=== PATIENT | male | born 1935 | race Caucasian/White ===

== ENCOUNTER 2017-08-13 21:59 | Inpatient (IN) ==
[2017-08-13 22:40] LABS: Basophils % 0.2 %; Eosinophils # 0.2 K/mcL (0.0-0.6); Eosinophils % 1.9 %; Hematocrit 31.6 % (37.5-50.1); Hemoglobin 10.9 g/dL (12.9-16.9); Immature Granulocytes % 0.3 % (0-4); Lymphocytes # 1.1 K/mcL (0.6-4.6); Lymphocytes % 11.3 %; Mean Corpuscular HGB Conc 34.5 g/dL (31.6-35.5); Mean Corpuscular Hemoglobin 31.2 pg (28.0-33.3); Mean Corpuscular Volume 90.5 fL (83.0-100.0); Mean Platelet Volume 9.5 fL (9.4-12.4); Monocytes # 0.6 K/mcL (0.0-1.3); Monocytes % 6.5 %; Neutrophils # 7.6 K/mcL (1.6-8.9); Platelet Count 133 K/mcL (140-400); Red Blood Count 3.49 M/mcL (4.19-5.50); Red Cell Distribution Width 14.6 % (11.5-14.5); Segmented Neutrophils % 79.8 %
[2017-08-13 22:45] LABS: Bilirubin,Urine Small (Negative); Blood,Urine Trace (Negative); Clarity,Urine Cloudy (Clear); Color,Urine Dark Yellow (Yellow); Glucose,Urine (UA) Normal (Normal); Ketones,Urine Negative (Negative); Leukocyte Esterase,Urine Negative (Negative); Nitrite,Urine Negative (Negative); Protein,Urine 30 mg/dL (Neg-Trace); Specific Gravity,Urine 1.012 (1.010-1.025); Urobilinogen,Urine Normal (Normal)
[2017-08-13 22:46] LABS: Bacteria,Urine None Seen per hpf (None-Few); Hyaline Casts,Urine None Seen per lpf (None-Few); Squamous Epithelial Cell,Urine Many per lpf (None-Few)
[2017-08-13 22:46] LABS: INR 1.1; Prothrombin Time 11.9 Seconds (9.4-12.1)
[2017-08-13 22:49] LABS: Activated Partial Thrombo Time 28.2 Seconds (26.0-36.0)
[2017-08-13 23:14] LABS: Troponin I 0.04 ng/mL (< 0.04)
[2017-08-13 23:15] LABS: Alanine Aminotransferase > 500 Units/L (7-52); Albumin 3.5 g/dL (3.5-5.7); Albumin/Globulin Ratio 1.5 (1.1-2.2); Alkaline Phosphatase 257 Units/L (34-104); BUN/Creatinine Ratio 24 (6-26); Bilirubin,Indirect 1.1 mg/dL (0.0-1.2); Bilirubin,Total 2.1 mg/dL (0.3-1.0); Blood Urea Nitrogen 32 mg/dL (8-23); Calcium 9.2 mg/dL (8.6-10.3); Carbon Dioxide 23 mEq/L (23-29); Chloride 106 mEq/L (98-107); Globulin 2.4 g/dL (2.4-3.5); Glucose 125 mg/dL (70-105); Lipase 69 Units/L (11-82); Osmolality,Calculated 296 (280-300); Potassium 4.2 mEq/L (3.5-5.1); Sodium 139 mEq/L (136-145); Total Protein 5.9 g/dL (6.4-8.9); eGFR For African Americans > 60 (> 60); eGFR For Non-African Americans 51 (> 60)
[2017-08-13 23:20] LABS: Aspartate Amino Transferase 1585 Units/L (13-39)
[2017-08-13] MEDS ORDERED: Isovue-370 500 ML INFUS..BTL IV ONE (23:23)
[2017-08-14] MEDS ORDERED: 0.9 % Sodium Chloride 1,000 ML IVC ONE (00:55)
--- NOTE | 2017-08-14 01:15 | Emergency Department Note ---
Disposition Clinical Impression: Abdominal pain, Elevated liver enzymes, Elevated troponin Disposition: Admitted As Inpatient Condition: Undetermined Instructions: Abdominal Pain (ED) Referrals: Judy Morgan CNP [Primary Care Provider] - Forms: ED Satisfaction Letter, Work/School Release Time of Disposition: 01:45 Abdominal Pain HPI - General Chief Complaint: ED Abdominal Pain Stated Complaint: N/V Time Seen by Provider: 08/13/17 23:13 Source: patient, family, EMS Mode of arrival: ambulatory Limitations: no limitations Nursing Notes Reviewed: Yes Vital Signs Reviewed: Yes - History of Present Illness HPI Narrative: 81-year-old male presents emergency Department with concerns of nausea and vomiting. Patient had a pacemaker placed [address] Whitfield. Patient had felt well after his discharge from hospital. He denies fever, chills, chest pain. Patient developed nausea and vomiting within the past 24 hours. Patient states he had never had symptoms like this in the past. Daughter states the patient has become increasingly weak and fatigued over the past 12 hours. Patient had stated he had significant epigastric pain. Pain Scale: 0 - Related Data Home Medications Medication Instructions Recorded Confirmed ALPRAZolam [Xanax 0.25 MG Tablet] 0.25 mg PO BID PRN 10/19/15 10/19/15 B2/Vits A,C,E/Lut/Zeaxanth/Min 1 each PO DAILY 10/19/15 10/19/15 [Icaps Tablet] Carvedilol 12.5 mg PO BID 10/19/15 10/19/15 Cholecalciferol (D-3) [Vitamin D] 2,000 unit PO DAILY 10/19/15 10/19/15 Clopidogrel [Plavix] 75 mg PO DAILY 10/19/15 10/19/15 Clotrimazole/Betamethasone Dip 1 appl TP BID 10/19/15 10/19/15 [Clotrimazole-Betamethasone Lot] Cyanocobalamin (B-12) [Vitamin B12] 1,000 mcg IM QMONTH 10/19/15 10/19/15 Diclofenac Sodium [Voltaren] 1 appl TP BID 10/19/15 10/19/15 Docusate [Colace] 100 mg PO DAILY PRN 10/19/15 10/19/15 Ezetimibe [Zetia] 10 mg PO DAILY 10/19/15 10/19/15 Ferrous Sulfate 325 mg PO BIDWM 10/19/15 10/19/15 Finasteride [Proscar] 5 mg PO DAILY 10/19/15 10/19/15 Furosemide [Lasix] 40 mg PO PRN PRN 10/19/15 10/19/15 Gabapentin [Neurontin] 300 mg PO BID 10/19/15 10/19/15 Gluc Tidwell/Chondro Tidwell A/Vit C/Mn 1 each PO DAILY 10/19/15 10/19/15 [Glucosamine Chondroitin Tab] Loratadine [Claritin] 10 mg PO DAILY 10/19/15 10/19/15 Metoclopramide [Reglan] 10 mg PO DAILY 10/19/15 10/19/15 Multivitamin [Multi-Day Vitamins] 1 each PO DAILY 10/19/15 10/19/15 Nitroglycerin [Nitrostat] 0.4 mg SL AD PRN 10/19/15 10/19/15 Oxycodone HCl/Acetaminophen 1 each PO Q6H PRN 10/19/15 10/19/15 [Percocet 5-325 mg Tablet] Pantoprazole Sodium [Protonix] 40 mg PO DAILY 10/19/15 10/19/15 Potassium Chloride [K-Tab ER] 20 meq PO BID 10/19/15 10/19/15 Pravastatin Sodium [Pravachol] 40 mg PO DAILY 10/19/15 10/19/15 Tamsulosin [Flomax] 0.4 mg PO DAILY 10/19/15 10/19/15 Valsartan/Hydrochlorothiazide 0.5 each PO DAILY 10/19/15 10/19/15 [Diovan Hct 80-12.5 mg Tablet] metFORMIN [Glucophage] 500 mg PO BIDWM 10/19/15 10/19/15 Previous Rx's Medication Instructions Recorded Aspirin 81 mg PO DAILY #30 tab.chew 10/22/15 Benzonatate [Tessalon] 100 mg PO TID #30 capsule 06/03/16 Oseltamivir [Tamiflu] 75 mg PO BID #10 capsule 06/03/16 Benzonatate [Tessalon] 200 mg PO TID PRN #30 capsule 03/09/17 Guaifenesin [Mucinex] 600 mg PO BID #20 tab.er.12h 03/09/17 cephALEXin [Keflex] 500 mg PO QID #40 capsule 03/09/17 Allergies Allergy/AdvReac Type Severity Reaction Status Date / Time levofloxacin [From Levaquin] Allergy See Verified 10/19/15 12:24 Comments lisinopril Allergy See Verified 10/19/15 12:24 Comments simvastatin [From Zocor] Allergy See Verified 10/19/15 12:24 Comments atorvastatin [From Lipitor] AdvReac See Verified 10/19/15 12:24 Comments All systems ED: reviewed and negative except as stated. Review of Systems: As Per HPI Abdominal Pain PMH - Past Medical History Medical history: Reports: coronary artery disease, diabetes, renal disease, other Male Surgical History: Reports: coronary bypass (CABG), pacemaker/AICD Psychiatric history: Reports: no psych history - Social History Smoking status: Never smoker Alcohol use: Reports: none Drug use: Reports: none Physical Exam General: Alert and in no acute distress Skin: Warm, dry, intact Head: Normocephalic and atraumatic Neck: Supple, trachea midline and no tenderness Cardiovascular: RRR, no murmur, normal perfusion Respiratory: CTAB, no wheezing, cough, or respiratory distress Musculoskeletal: Normal strength, no tenderness, swelling or deformity GI: Soft, nontender, nondistended. Bowel sounds present Neuro: A&O to person, place, time and situation. No focal deficits noted on exam Psychiatric: cooperative and appropriate mood and affect. - General General appearance: alert, in no apparent distress Course Vital Signs Temperature 98.8 F 08/13/17 22:13 Pulse Rate 108 08/13/17 22:13 Respiratory Rate 16 08/13/17 22:13 Blood Pressure 97/72 08/13/17 22:13 O2 Sat by Pulse Oximetry 96 08/13/17 22:13 Temperature 98.8 F 08/13/17 22:13 Pulse Rate 108 08/13/17 22:13 Respiratory Rate 16 08/13/17 22:13 Blood Pressure 97/72 08/13/17 22:13 O2 Sat by Pulse Oximetry 96 08/13/17 22:13 Oxygen Delivery Oxygen Delivery Nasal Cannula Abdominal Pain - MDM Narrative Medical decision making narrative: Patient has elevation of his troponin at 0.04. This is higher than his previous troponins. Patient also has significant elevation of his AST, ALP and alkaline phosphatase. Patient is not significantly jaundiced on evaluation. No history of hepatitis. No history of gallbladder disease. CT returned showing evidence of possible acute cholecystitis. Patient also has an abdominal aortic aneurysm. I spoke with Dr. dominguez regarding this patient's case and presentation who agreed to see the patient in the hospital. He recommended starting patient on Zosyn and he will likely have surgery tomorrow. Patient will be admitted to the hospitalist per recommendation of Dr. dominguez. - Medical Records Medical records reviewed: Yes I reviewed the patient's medical records. - Lab Data Lab results reviewed: Yes I reviewed the patient's lab results. Result diagrams: 08/13/17 22:30 08/13/17 22:30 Lab Results 08/13/17 08/13/17 08/13/17 Range/Units 22:30 22:30 22:30 WBC 9.5 (4.3-11.1) K/mcL RBC 3.49 L (4.19-5.50) M/mcL Hgb 10.9 L (12.9-16.9) g/dL Hct 31.6 L (37.5-50.1) % MCV 90.5 (83.0-100.0) fL MCH 31.2 (28.0-33.3) pg MCHC 34.5 (31.6-35.5) g/dL RDW 14.6 H (11.5-14.5) % Plt Count 133 L (140-400) K/mcL MPV 9.5 (9.4-12.4) fL Immature Gran % 0.3 (0-4) % Seg Neutrophils % 79.8 % Lymphocytes % 11.3 % Monocytes % 6.5 % Eosinophils % 1.9 % Basophils % 0.2 % Neutrophils # 7.6 (1.6-8.9) K/mcL Lymphocytes # 1.1 (0.6-4.6) K/mcL Monocytes # 0.6 (0.0-1.3) K/mcL Eosinophils # 0.2 (0.0-0.6) K/mcL Basophils # 0.0 (0.0-0.2) K/mcL PT 11.9 (9.4-12.1) Seconds INR 1.1 APTT 28.2 (26.0-36.0) Seconds Sodium 139 (136-145) mEq/L Potassium 4.2 (3.5-5.1) mEq/L Chloride 106 (98-107) mEq/L Carbon Dioxide 23 (23-29) mEq/L BUN 32 H (8-23) mg/dL Creatinine 1.34 H (0.70-1.30) mg/dL Est GFR ( Amer) > 60 (> 60) Est GFR (Non-Af Amer) 51 L (> 60) BUN/Creatinine Ratio 24 (6-26) Glucose 125 H (70-105) mg/dL Calculated Osmolality 296 (280-300) Calcium 9.2 (8.6-10.3) mg/dL Total Bilirubin 2.1 H (0.3-1.0) mg/dL Direct Bilirubin 1.0 H (0.0-0.2) mg/dL Indirect Bilirubin 1.1 (0.0-1.2) mg/dL AST 1585 H (13-39) Units/L ALT > 500 H (7-52) Units/L Alkaline Phosphatase 257 H (34-104) Units/L Troponin I 0.04 H* (< 0.04) ng/mL Serum Total Protein 5.9 L (6.4-8.9) g/dL Albumin 3.5 (3.5-5.7) g/dL Globulin 2.4 (2.4-3.5) g/dL Albumin/Globulin Ratio 1.5 (1.1-2.2) Lipase 69 (11-82) Units/L Urine Color (Yellow) Urine Clarity (Clear) Urine pH (5.0-8.0) pH Units Ur Specific [place] (1.010-1.025) Urine Protein (Neg-Trace) mg/dL Urine Glucose (UA) (Normal) mg/dL Urine Ketones (Negative) mg/dL Urine Blood (Negative) Urine Nitrite (Negative) Urine Bilirubin (Negative) Urine Urobilinogen (Normal) mg/dL Ur Leukocyte Esterase (Negative) Urine Microscopic RBC (0-3) per hpf Urine Microscopic WBC (0-3) per hpf Ur Squamous Epith Cells (None-Few) per lpf Urine Bacteria (None-Few) per hpf Hyaline Casts (None-Few) per lpf Urine Yeast Ur Culture Indicated? (NO) Acetaminophen < 10 L (10-20) mcg/mL 08/13/17 Range/Units 22:35 WBC (4.3-11.1) K/mcL RBC (4.19-5.50) M/mcL Hgb (12.9-16.9) g/dL Hct (37.5-50.1) % MCV (83.0-100.0) fL MCH (28.0-33.3) pg MCHC (31.6-35.5) g/dL RDW (11.5-14.5) % Plt Count (140-400) K/mcL MPV (9.4-12.4) fL Immature Gran % (0-4) % Seg Neutrophils % % Lymphocytes % % Monocytes % % Eosinophils % % Basophils % % Neutrophils # (1.6-8.9) K/mcL Lymphocytes # (0.6-4.6) K/mcL Monocytes # (0.0-1.3) K/mcL Eosinophils # (0.0-0.6) K/mcL Basophils # (0.0-0.2) K/mcL PT (9.4-12.1) Seconds INR APTT (26.0-36.0) Seconds Sodium (136-145) mEq/L Potassium (3.5-5.1) mEq/L Chloride (98-107) mEq/L Carbon Dioxide (23-29) mEq/L BUN (8-23) mg/dL Creatinine (0.70-1.30) mg/dL Est GFR ( Amer) (> 60) Est GFR (Non-Af Amer) (> 60) BUN/Creatinine Ratio (6-26) Glucose (70-105) mg/dL Calculated Osmolality (280-300) Calcium (8.6-10.3) mg/dL Total Bilirubin (0.3-1.0) mg/dL Direct Bilirubin (0.0-0.2) mg/dL Indirect Bilirubin (0.0-1.2) mg/dL AST (13-39) Units/L ALT (7-52) Units/L Alkaline Phosphatase (34-104) Units/L Troponin I (< 0.04) ng/mL Serum Total Protein (6.4-8.9) g/dL Albumin (3.5-5.7) g/dL Globulin (2.4-3.5) g/dL Albumin/Globulin Ratio (1.1-2.2) Lipase (11-82) Units/L Urine Color Dark Yellow (Yellow) Urine Clarity Cloudy A (Clear) Urine pH 6.0 (5.0-8.0) pH Units Ur Specific [place] 1.012 (1.010-1.025) Urine Protein 30 H (Neg-Trace) mg/dL Urine Glucose (UA) Normal (Normal) mg/dL Urine Ketones Negative (Negative) mg/dL Urine Blood Trace H (Negative) Urine Nitrite Negative (Negative) Urine Bilirubin Small H (Negative) Urine Urobilinogen Normal (Normal) mg/dL Ur Leukocyte Esterase Negative (Negative) Urine Microscopic RBC 3-5 H (0-3) per hpf Urine Microscopic WBC 3-5 H (0-3) per hpf Ur Squamous Epith Cells Many H (None-Few) per lpf Urine Bacteria None Seen (None-Few) per hpf Hyaline Casts None Seen (None-Few) per lpf Urine Yeast Test Not Performed Ur Culture Indicated? NO (NO) Acetaminophen (10-20) mcg/mL - EKG Data EKG attestation: Yes I reviewed and interpreted this EKG. EKG results narrative: Normal sinus rhythm with a rate of 70 without evidence of STEMI.
[2017-08-14 01:55] LABS: Acetaminophen < 10 mcg/mL (10-20)
[2017-08-14] MEDS ORDERED: Piperacillin/Tazobactam 3.375 GM in 0.9 % Sodium Chloride Mini Bag 100 ML IVPB ONE (01:57)
[2017-08-14] MEDS ORDERED: Naloxone 0.4 MG/ML INJ IVP PRN (02:42)
[2017-08-14] MEDS ORDERED: *HR* OxyCODONE Immed Rel 5 MG TABLET PO PRN (02:42)
[2017-08-14] MEDS ORDERED: Ondansetron 4 MG/2 ML VIAL IVP PRN (02:43)
--- NOTE | 2017-08-14 02:50 | Internal Med History&Physical ---
Date of Encounter: 08/14/17 Time of Encounter: 02:41 Internal Medicine - H&P: HPI Chief complaint: nausea/vomiting Admitted From: Emergency Dept Plans for Post Hospital Care: Home History of present illness: Mr. Clayton is a 81 year old male with a history of CAD s/p CABG with 5 stents , ICM s/p AICD, diabetes, hyperlipidemia, CKD, DM who presents with complaints of nausea or vomiting for about a couple of days or so. Patient is also reporting weakness. He does have epigastric pain and right upper quadrant pain. Reports subjective fevers and chills. The patient had his pacemaker changed on 08/09. Upon presentation the patient was hemodynamically stable but was noted to have significantly elevated LFTs. Creatinine was mildly elevated at 1.34 and the patient has had elevated creatinine and kidney function in the past. Troponins were 0.04 with no ischemic changes on EKG. CT abdomen and pelvis was done which showed acute cholecystitis. There was also mention about an abdominal aneurysm that was 4.1 cm that has not changed from previous. Surgery were consulted as the patient requested Dr. Newby to see and Dr. Newby recommended admission to hospitalist and optimizing for surgery. The patient was given IV fluids as well as Zosyn in the ED. Denies any headache, blurry vision, chest pain, shortness of breath, diarrhea, constipation, urinary symptoms, or neurological symptoms. Past Med Surg Social Fam HX - Past Medical History Medical history: coronary artery disease, diabetes, renal disease, other Additional medical history: baretts esophogus, sleep apnea Psychiatric history: no psych history - Past Surgical History Surgical History: angioplasty/stent, coronary bypass (CABG), LE Bypass, orthopedic, other, pacemaker/AICD Additional surgical history: cardiac stents - Social History Smoking Status: Never smoker Smokeless Tobacco Status: No Alcohol use: none Drug use: none - Family History Mother Living Status: Hx Family Cardiac Disorders: No Hx Family Endocrine Disorder: Yes Father Living Status: Hx Family Cardiac Disorders: Yes Hx Family Respiratory Disorders: No Hx Family Cancer: No Hx Family GI Disorders: No Hx Family Endocrine Disorder: No Hx Family Neuromuscular Disorders: No Hx Family Neurologic Disorders: No Hx Family HEENT Disorders: No Hx Family Autoimmune Disorders: No Internal Medicine - H&P: Meds ALPRAZolam [Xanax 0.25 MG Tablet] 0.25 mg PO BID PRN 10/19/15 [History] B2/Vits A,C,E/Lut/Zeaxanth/Min [Icaps Tablet] 1 each PO DAILY 10/19/15 [History] Carvedilol 12.5 mg PO BID 10/19/15 [History] Cholecalciferol (D-3) [Vitamin D] 2,000 unit PO DAILY 10/19/15 [History] Clopidogrel [Plavix] 75 mg PO DAILY 10/19/15 [History] Clotrimazole/Betamethasone Dip [Clotrimazole-Betamethasone Lot] 1 appl TP BID [History] Cyanocobalamin (B-12) [Vitamin B12] 1,000 mcg IM QMONTH 10/19/15 [History] Diclofenac Sodium [Voltaren] 1 appl TP BID 10/19/15 [History] Docusate [Colace] 100 mg PO DAILY PRN 10/19/15 [History] Ezetimibe [Zetia] 10 mg PO DAILY 10/19/15 [History] Ferrous Sulfate 325 mg PO BIDWM 10/19/15 [History] Finasteride [Proscar] 5 mg PO DAILY 10/19/15 [History] Furosemide [Lasix] 40 mg PO PRN PRN 10/19/15 [History] Gabapentin [Neurontin] 300 mg PO BID 10/19/15 [History] Gluc Tidwell/Chondro Tidwell A/Vit C/Mn [Glucosamine Chondroitin Tab] 1 each PO DAILY 11/25 [History] Loratadine [Claritin] 10 mg PO DAILY 10/19/15 [History] Metoclopramide [Reglan] 10 mg PO DAILY 10/19/15 [History] Multivitamin [Multi-Day Vitamins] 1 each PO DAILY 10/19/15 [History] Nitroglycerin [Nitrostat] 0.4 mg SL AD PRN 10/19/15 [History] Oxycodone HCl/Acetaminophen [Percocet 5-325 mg Tablet] 1 each PO Q6H PRN [History] Pantoprazole Sodium [Protonix] 40 mg PO DAILY 10/19/15 [History] Potassium Chloride [K-Tab ER] 20 meq PO BID 10/19/15 [History] Pravastatin Sodium [Pravachol] 40 mg PO DAILY 10/19/15 [History] Tamsulosin [Flomax] 0.4 mg PO DAILY 10/19/15 [History] Valsartan/Hydrochlorothiazide [Diovan Hct 80-12.5 mg Tablet] 0.5 each PO DAILY 10/19/15 [History] metFORMIN [Glucophage] 500 mg PO BIDWM 10/19/15 [History] Aspirin 81 mg PO DAILY #30 tab.chew 10/22/15 [Rx] Benzonatate [Tessalon] 100 mg PO TID #30 capsule 06/03/16 [Rx] Oseltamivir [Tamiflu] 75 mg PO BID #10 capsule 06/03/16 [Rx] Benzonatate [Tessalon] 200 mg PO TID PRN #30 capsule 03/09/17 [Rx] Guaifenesin [Mucinex] 600 mg PO BID #20 tab.er.12h 03/09/17 [Rx] cephALEXin [Keflex] 500 mg PO QID #40 capsule 03/09/17 [Rx] 3 Allergy/AdvReac Type Severity Reaction Status Date / Time levofloxacin [From Levaquin] Allergy See Verified 10/19/15 12:24 Comments lisinopril Allergy See Verified 10/19/15 12:24 Comments simvastatin [From Zocor] Allergy See Verified 10/19/15 12:24 Comments atorvastatin [From Lipitor] AdvReac See Verified 10/19/15 12:24 Comments All Systems PM: A 10-system review of systems was performed and is negative for pertinent findings except as documented above in the HPI. Review of systems: All systems reviewed are negative except as mentioned above - Constitutional Vitals: Temp Pulse Resp BP Pulse Ox 98.8 F 108 16 97/72 96 08/13/17 22:13 08/13/17 22:13 08/13/17 22:13 08/13/17 22:13 08/13/17 22:13 Exam: GEN: NAD HEENT: AT, NC, No cyanosis, oral mucosa is moist, No JVD Lymphatics: No lymphadenoapthy Eyes: Extrocular muscles intact, anicteric CVS:RRR. S1, S2, No m/r/g RESP: CTAB ABD: Soft, tenderness to palpation in the right upper quadrant as well as the epigastric area with no rebound., ND, +BS EXT: No edema, No rashes, 2+ DP NEURO: Nonfocal, CN II-XII intact, No focal motor or sensory deficits Psych: Cooperative, Not anxious or depressed Internal Med - H&P Results - Labs CBC & Chem 7: 08/13/17 22:30 08/13/17 22:30 Labs: Short CBC 08/13/17 Range/Units 22:30 WBC 9.5 (4.3-11.1) K/mcL Hgb 10.9 L (12.9-16.9) g/dL Hct 31.6 L (37.5-50.1) % Plt Count 133 L (140-400) K/mcL Neutrophils # 7.6 (1.6-8.9) K/mcL BMP 08/13/17 22:30 Sodium 139 Potassium 4.2 Chloride 106 Carbon Dioxide 23 BUN 32 H Creatinine 1.34 H Glucose 125 H Calcium 9.2 Cardiac Enzymes 08/13/17 Range/Units 22:30 Troponin I 0.04 H* (< 0.04) ng/mL Liver Function 08/13/17 Range/Units 22:30 Total Bilirubin 2.1 H (0.3-1.0) mg/dL Direct Bilirubin 1.0 H (0.0-0.2) mg/dL AST 1585 H (13-39) Units/L ALT > 500 H (7-52) Units/L Alkaline Phosphatase 257 H (34-104) Units/L Albumin 3.5 (3.5-5.7) g/dL Urine 08/13/17 Range/Units 22:35 Urine Color Dark Yellow (Yellow) Urine Clarity Cloudy A (Clear) Urine pH 6.0 (5.0-8.0) pH Units Ur Specific [place] 1.012 (1.010-1.025) Urine Protein 30 H (Neg-Trace) mg/dL Urine Glucose (UA) Normal (Normal) mg/dL - Impressions ITS Impressions Abdomen/Pelvis CT 08/14/17 23:23 IMPRESSION: 1. Cholelithiasis with mild pericholecystic fluid. Pattern could potentially indicate acute cholecystitis. Recommend correlation with clinical and laboratory results. Follow-up ultrasound may be considered if indicated. 2. 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 No significant change from prior imaging. Aneurysm in the thoracic aorta is not well visualized on the current study. IMPRESSION: Managing Abdominal Aortic Aneurysms 4.0-4.4 cm: Every 1 year. Recommend vascular consultation. Reference: J Vasc Surg. 2009 Dec;50(4 Suppl):S2-49 D/ / Javi Estrada MD / Javi Estrada MD Interpreting Provider: Javi Estrada MD - Assessment and plan (1) Acute cholecystitis Current Visit: Yes Status: Acute Assessment and plan: Admit to hospitalist with a consult surgery. We will place patient on IV Zosyn. Pain Control. Antiemetics. Cardiology to see for preop clearance. Nothing by mouth. Gentle hydration (2) Elevated troponin Current Visit: Yes Status: Acute Assessment and plan: Likely demand ischemia. We will trend cardiac enzymes. Check an echocardiogram. We will ask cardiology to see her clear the patient for surgery. Place on telemetry (3) Ischemic cardiomyopathy Current Visit: Yes Status: Acute Assessment and plan: Patient's previous echo from a couple years showed an EF of 35-40%. We will repeat an echo and ask cardiology to see for preoperative clearance. Patient is not in exacerbation of CHF and seems euvolemic. (4) CAD (coronary artery disease) Current Visit: No Status: Acute Assessment and plan: Resume cardiac meds. Hold antiplatelets for now in anticipation of surgery. Qualifiers: Coronary Disease-Associated Artery/Lesion type: bypass graft, autologous vein Associated angina: angina presence unspecified Qualified Code(s): I25.810 - Atherosclerosis of coronary artery bypass graft(s) without angina pectoris (5) CKD (chronic kidney disease) stage 3, GFR 30-59 ml/min Current Visit: No Status: Acute Assessment and plan: Creatinine slightly elevated above baseline. We will gently hydrate keep her mind his history of ischemic cardiomyopathy. Avoid nephrotoxins. (6) Diabetes Current Visit: No Status: Acute Assessment and plan: We will place patient on insulin sliding scale. Accu-Cheks Qualifiers: Diabetes mellitus type: type 2 Diabetes mellitus residential insulin use: without residential use Diabetes mellitus complication status: with unspecified complications Qualified Code(s): E11.8 - Type 2 diabetes mellitus with unspecified complications (7) HTN (hypertension) Current Visit: No Status: Acute Assessment and plan: Resume home antihypertensives. Qualifiers: Hypertension type: essential hypertension Qualified Code(s): I10 - Essential (primary) hypertension (8) Sleep apnea Current Visit: Yes Status: Acute Assessment and plan: On Cpap Qualifiers: Sleep apnea type: unspecified type Qualified Code(s): G47.30 - Sleep apnea , unspecified (9) DVT prophylaxis Current Visit: No Status: Acute Assessment and plan: SCDs - Time Spent With Patient Total time spent is greater than 50% in coordination of care (as documented) at patient's floor/unit and/or counseling patient:
[2017-08-14] MEDS ORDERED: *HR* Dextrose 50 % in Water (Syg) 50 ML SYRINGE IVP PRN (02:52)
[2017-08-14] MEDS ORDERED: D5% in Water 1,000 ML IVC PRN (02:52)
[2017-08-14] MEDS ORDERED: Dextrose Gel 15 GM/37.5 ML TUBE PO PRN ×2 (02:52)
[2017-08-14] MEDS: 0.9 % Sodium Chloride 1,000 ML IVC SCH ×2 (03:45→17:04)
[2017-08-14 05:27] LABS: Basophils % 0.2 %; Eosinophils # 0.3 K/mcL (0.0-0.6); Eosinophils % 3.2 %; Hematocrit 31.4 % (37.5-50.1); Hemoglobin 10.2 g/dL (12.9-16.9); Immature Granulocytes % 0.2 % (0-4); Lymphocytes # 1.2 K/mcL (0.6-4.6); Lymphocytes % 15.3 %; Mean Corpuscular HGB Conc 32.5 g/dL (31.6-35.5); Mean Corpuscular Hemoglobin 29.7 pg (28.0-33.3); Mean Corpuscular Volume 91.3 fL (83.0-100.0); Mean Platelet Volume 10.2 fL (9.4-12.4); Monocytes # 0.5 K/mcL (0.0-1.3); Neutrophils # 6.1 K/mcL (1.6-8.9); Platelet Count 131 K/mcL (140-400); Red Blood Count 3.44 M/mcL (4.19-5.50); Red Cell Distribution Width 14.6 % (11.5-14.5); Segmented Neutrophils % 75.1 %
[2017-08-14 05:53] LABS: Alanine Aminotransferase > 500 Units/L (7-52); Albumin 3.3 g/dL (3.5-5.7); Albumin/Globulin Ratio 1.3 (1.1-2.2); Alkaline Phosphatase 253 Units/L (34-104); BUN/Creatinine Ratio 24 (6-26); Bilirubin,Total 1.9 mg/dL (0.3-1.0); Blood Urea Nitrogen 30 mg/dL (8-23); Calcium 8.8 mg/dL (8.6-10.3); Carbon Dioxide 23 mEq/L (23-29); Chloride 109 mEq/L (98-107); Globulin 2.5 g/dL (2.4-3.5); Glucose 118 mg/dL (70-105); Magnesium 1.8 mg/dL (1.6-2.6); Osmolality,Calculated 299 (280-300); Potassium 3.7 mEq/L (3.5-5.1); Sodium 141 mEq/L (136-145); Total Protein 5.8 g/dL (6.4-8.9); eGFR For African Americans > 60 (> 60); eGFR For Non-African Americans 56 (> 60)
[2017-08-14 06:02] LABS: Aspartate Amino Transferase 1026 Units/L (13-39)
[2017-08-14] MEDS: Insulin LISPRO 300 UNITS/3 ML VIAL SQ SCH ×3 (06:43→17:03)
--- NOTE | 2017-08-14 07:33 | General Surgery Consult Note ---
Date of Encounter: 08/14/17 Time of Encounter: 06:55 History of Present Illness Reason for consult: other (Nausea vomiting and markedly abnormal LFTs) Requesting physician: Coleman Amaral History of present illness: 81-year-old male referred for further surgical evaluation and possible intervention after presenting to the emergency department with abrupt onset severe right upper quadrant abdominal pain, nausea and vomiting. Patient and his family describe sudden onset of symptoms which prompted presentation to the [facility] ED for further evaluation. CT abdomen and pelvis demonstrated cholelithiasis with mild pericholecystic fluid. No ductal dilatation or obvious liver abnormalities were detected. 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 Blood work was markedly abnormal. White count was 9.5, hemoglobin 10.9 with hematocrit 31.6. Platelet count 133, 000. Differential was within normal limits. Electrolytes were notable for an elevated BUN of 32, creatinine 1.34, depressed estimated GFR 51. Bilirubin 2.1 , AST 1585, ALT greater than 500, alkaline phosphatase 257. The findings were suggestive of acute calculus cholecystitis prompting the surgical consultation. Troponins were elevated at 0.04 and lipase 69. The patient's medical history is notable for recent replacement of his pacer/AICD on , 08/09/17. The daughter describes black liquid diarrhea the day following placement of the pacer/AICD but no detected melena since. Past medical history: CAD, status post CABG and stent placement 5; long- standing pacer/AICD, most recently replaced , 08/09/17; diabetes mellitus ; hyperlipidemia; chronic kidney disease; obstructive sleep apnea; and Abreu' s esophagitis. Surgical history: Patient denies any prior surgical history except for the pacer /AICD but review of medical records indicate prior CABG; lower extremity bypass ; and orthopedic procedures Allergies: Levofloxacin, lisinopril, simvastatin, and atorvastatin Medications: See list below - these meds were reviewed with the patient and his family Social history: history: Patient is ; lives at home with his spouse; he has never smoked, he denies any alcohol or tobacco use. On physical examination: Age-appropriate, elderly male, in no acute distress. The acute pain, nausea, and vomiting have resolved. The patient is currently comfortable with no complaints. Patient is afebrile at 97.8, pulse 85 and regular; respiration 16, blood pressure 123/53; SPO2 97% on 2 L/m nasal cannula. Lungs: Clear bilaterally; pacer site left upper chest/infraclavicular base, clean, dry and healing well. Cardiac: Regular rate Abdomen: Soft, nontender; gallbladder not palpable, no organomegaly or other intra-abdominal masses. Active bowel sounds. Extremities: No obvious clubbing, cyanosis, or edema. Laboratories: Repeated this morning show a white count of 8.1, hemoglobin 10.2 with hematocrit 31.4 (low but stable) platelet count was also below low limits of normal at 131,000. BUN has improved to 30, creatinine improved to 1.23. Bili removed has improved slightly to 1.9, AST 1026, ALT remains greater than 500. CT reviewed with [facility]. Impression: An 81-year-old male referred for further surgical evaluation dand possible treatment after presenting to [facility] ED with abrupt onset severe right upper quadrant abdominal pain, nausea and vomiting. The acute symptoms have resolved. The patient is presently not symptomatic. CT ending suggestive of acute cholecystitis. This we verified with an ultrasound of the gallbladder. The patient also has a significant cardiac history with recent replacement of his pacer/AICD along with diabetes, obstructive sleep apnea, and chronic kidney disease. It is my understanding that cardiology is planning a repeat echocardiogram today. As the patient is currently asymptomatic I will defer surgery pending completion of the patient's medical evaluation. The patient's findings are suggestive of acute biliary colic related to his cholelithiasis. Sonogram of the gallbladder will be useful to determine if acute cholecystitis as demonstrated on current CT is present. The patient is a reasonable candidate for laparoscopic cholecystectomy but understands that an open cholecystectomy may become necessary. Risks of surgery include hemorrhage, infection, intra-abdominal abscess, bile leak, injury to adjacent ducts, vessels, organs, or bowel. The patient is also at increased risk for pulmonary complications such as respiratory failure and/or pneumonia; worsening renal function; and cardiac risks such as dysrhythmia and/ or IA. I will follow along with you. Thank you for this consultation. Past Med Surg Social Fam HX - Past Medical History Medical history: coronary artery disease, diabetes, renal disease, other Additional medical history: baretts esophogus, sleep apnea Psychiatric history: no psych history - Past Surgical History Surgical History: angioplasty/stent, coronary bypass (CABG), LE Bypass, orthopedic, other, pacemaker/AICD Additional surgical history: cardiac stents - Social History Smoking Status: Never smoker Smokeless Tobacco Status: No Alcohol use: none Drug use: none - Family History Mother Adopted: [place]: Janeen Family Member Ethnicity: Non- Living Status: Unknown Hx Family Cardiac Disorders: No Hx Family Endocrine Disorder: Yes Father History Unknown: Yes Adopted: [place]: Luke Age: 55 Family Member Ethnicity: Non- Living Status: Age at : 55 Cause of : IA, PE Hx Family Cardiac Disorders: Yes Hx Family Respiratory Disorders: No Hx Family Cancer: No Hx Family GI Disorders: No Hx Family Endocrine Disorder: No Hx Family Neuromuscular Disorders: No Hx Family Neurologic Disorders: No Hx Family HEENT Disorders: No Hx Family Autoimmune Disorders: No Medications and Allergies ALPRAZolam [Xanax 0.25 MG Tablet] 0.25 mg PO BID PRN 10/19/15 [History] B2/Vits A,C,E/Lut/Zeaxanth/Min [Icaps Tablet] 1 each PO DAILY 10/19/15 [History] Carvedilol 12.5 mg PO BID 10/19/15 [History] Cholecalciferol (D-3) [Vitamin D] 2,000 unit PO DAILY 10/19/15 [History] Clopidogrel [Plavix] 75 mg PO DAILY 10/19/15 [History] Clotrimazole/Betamethasone Dip [Clotrimazole-Betamethasone Lot] 1 appl TP BID [History] Cyanocobalamin (B-12) [Vitamin B12] 1,000 mcg IM QMONTH 10/19/15 [History] Diclofenac Sodium [Voltaren] 1 appl TP BID 10/19/15 [History] Docusate [Colace] 100 mg PO DAILY PRN 10/19/15 [History] Ezetimibe [Zetia] 10 mg PO DAILY 10/19/15 [History] Ferrous Sulfate 325 mg PO BIDWM 10/19/15 [History] Finasteride [Proscar] 5 mg PO DAILY 10/19/15 [History] Furosemide [Lasix] 40 mg PO DAILY PRN 10/19/15 [History] Gabapentin [Neurontin] 300 mg PO BID 10/19/15 [History] Gluc Tidwell/Chondro Tidwell A/Vit C/Mn [Glucosamine Chondroitin Tab] 1 each PO DAILY 11/25 [History] Loratadine [Claritin] 10 mg PO DAILY 10/19/15 [History] Metoclopramide [Reglan] 10 mg PO DAILY 10/19/15 [History] Multivitamin [Multi-Day Vitamins] 1 each PO DAILY 10/19/15 [History] Nitroglycerin [Nitrostat] 0.4 mg SL AD PRN 10/19/15 [History] Oxycodone HCl/Acetaminophen [Percocet 5-325 mg Tablet] 1 each PO Q6H PRN [History] Pantoprazole Sodium [Protonix] 40 mg PO DAILY 10/19/15 [History] Potassium Chloride [K-Tab ER] 20 meq PO BID 10/19/15 [History] Pravastatin Sodium [Pravachol] 40 mg PO DAILY 10/19/15 [History] Tamsulosin [Flomax] 0.4 mg PO DAILY 10/19/15 [History] metFORMIN [Glucophage] 500 mg PO BIDWM 10/19/15 [History] Aspirin 81 mg PO DAILY #30 tab.chew 10/22/15 [Rx] 3 Allergy/AdvReac Type Severity Reaction Status Date / Time levofloxacin [From Levaquin] Allergy See Verified 10/19/15 12:24 Comments lisinopril Allergy See Verified 10/19/15 12:24 Comments simvastatin [From Zocor] Allergy See Verified 10/19/15 12:24 Comments atorvastatin [From Lipitor] AdvReac See Verified 10/19/15 12:24 Comments Review of Systems All systems PM: The remainder of the systems were reviewed and are negative General Surgery Exam Initial Vital Signs Temp Pulse Resp BP Pulse Ox 98.8 F 108 16 97/72 96 08/13/17 22:13 08/13/17 22:13 08/13/17 22:13 08/13/17 22:13 08/13/17 22:13 Exam Initial Vital Signs Temp Pulse Resp BP Pulse Ox 98.8 F 108 16 97/72 96 08/13/17 22:13 08/13/17 22:13 08/13/17 22:13 08/13/17 22:13 08/13/17 22:13 Results - Labs 08/14/17 04:58 08/14/17 04:58 Abnormal lab results RBC 3.44 M/mcL (4.19-5.50) L 08/14/17 04:58 Hgb 10.2 g/dL (12.9-16.9) L 08/14/17 04:58 Hct 31.4 % (37.5-50.1) L 08/14/17 04:58 RDW 14.6 % (11.5-14.5) H 08/14/17 04:58 Plt Count 131 K/mcL (140-400) L 08/14/17 04:58 Chloride 109 mEq/L (98-107) H 08/14/17 04:58 BUN 30 mg/dL (8-23) H 08/14/17 04:58 Est GFR (Non-Af Amer) 56 (> 60) L 08/14/17 04:58 Glucose 118 mg/dL (70-105) H 08/14/17 04:58 Total Bilirubin 1.9 mg/dL (0.3-1.0) H 08/14/17 04:58 Direct Bilirubin 1.0 mg/dL (0.0-0.2) H 08/13/17 22:30 AST 1026 Units/L (13-39) H 08/14/17 04:58 ALT > 500 Units/L (7-52) H 08/14/17 04:58 Alkaline Phosphatase 253 Units/L (34-104) H 08/14/17 04:58 Serum Total Protein 5.8 g/dL (6.4-8.9) L 08/14/17 04:58 Albumin 3.3 g/dL (3.5-5.7) L 08/14/17 04:58 Urine Clarity Cloudy (Clear) A 08/13/17 22:35 Urine Protein 30 mg/dL (Neg-Trace) H 08/13/17 22:35 Urine Blood Trace (Negative) H 08/13/17 22:35 Urine Bilirubin Small (Negative) H 08/13/17 22:35 Urine Microscopic RBC 3-5 per hpf (0-3) H 08/13/17 22:35 Urine Microscopic WBC 3-5 per hpf (0-3) H 08/13/17 22:35 Ur Squamous Epith Cells Many per lpf (None-Few) H 08/13/17 22:35 Acetaminophen < 10 mcg/mL (10-20) L 08/13/17 22:30 Diabetes panel 08/14/17 Range/Units 04:58 Sodium 141 (136-145) mEq/L Potassium 3.7 (3.5-5.1) mEq/L Chloride 109 H (98-107) mEq/L Carbon Dioxide 23 (23-29) mEq/L BUN 30 H (8-23) mg/dL Creatinine 1.23 (0.70-1.30) mg/dL Glucose 118 H (70-105) mg/dL Calcium 8.8 (8.6-10.3) mg/dL AST 1026 H (13-39) Units/L ALT > 500 H (7-52) Units/L Alkaline Phosphatase 253 H (34-104) Units/L Albumin 3.3 L (3.5-5.7) g/dL Calcium panel 08/14/17 Range/Units 04:58 Calcium 8.8 (8.6-10.3) mg/dL Albumin 3.3 L (3.5-5.7) g/dL Pituitary panel 08/14/17 Range/Units 04:58 Sodium 141 (136-145) mEq/L Potassium 3.7 (3.5-5.1) mEq/L Chloride 109 H (98-107) mEq/L Carbon Dioxide 23 (23-29) mEq/L BUN 30 H (8-23) mg/dL Creatinine 1.23 (0.70-1.30) mg/dL Glucose 118 H (70-105) mg/dL Calcium 8.8 (8.6-10.3) mg/dL Adrenal panel 08/14/17 Range/Units 04:58 Sodium 141 (136-145) mEq/L Potassium 3.7 (3.5-5.1) mEq/L Chloride 109 H (98-107) mEq/L Carbon Dioxide 23 (23-29) mEq/L BUN 30 H (8-23) mg/dL Creatinine 1.23 (0.70-1.30) mg/dL Glucose 118 H (70-105) mg/dL Calcium 8.8 (8.6-10.3) mg/dL Total Bilirubin 1.9 H (0.3-1.0) mg/dL AST 1026 H (13-39) Units/L ALT > 500 H (7-52) Units/L Alkaline Phosphatase 253 H (34-104) Units/L Albumin 3.3 L (3.5-5.7) g/dL All other labs normal. Consult Discharge Plan - Plan Referrals: Judy Morgan, [employer] [Primary Care Provider] -
--- NOTE | 2017-08-14 09:37 | Cardiology Consult Note ---
Addendum entered and electronically signed by Deepak Noriega DO 08/14/17 12: 11: I examined this patient and my medical decision-making was reviewed with the Resident Physician. I agree with the documented findings, disposition and treatment plan as described except to the extent set forth below. Patient seen and examined. Patient with a known history of CAD, ICMP, s/p ICD. Primary medical research assistant - Dr. Hammond. Surgery: Cholecystectomy. Anesthesia: General. Functional capacity: Limited due to chronic arthritic issues. Able to care for his , walk across the room without chest discomfort. No current chest pain or CHF symptoms. Patient has had other surgeries over the past few years without cardiac complications. Testing: TTE 08/14/2017J: LVEF 35-40%. Findings similar to prior report in 2016. Impressions: Patient represents a moderate risk candidate for this intermediate risk surgery. No further preoperative cardiac testing appears necessary and would be unlikely to alter the patient's operative risk. [place] CAD/CABG/PCI as below. Continue aspirin/statin/BB without interruption. Resume Plavix when okay with surgery. All questions answered. Patient wishes to proceed with surgery. No further inpatient cardiology recommendations. Please call with questions or concerns. Thanks, Deepak Noriega DO, [facility] Original Note: Date of Encounter: 08/14/17 Time of Encounter: 09:37 Assessment and Plan (1) Preop cardiovascular exam Current Visit: Yes Status: Acute - Asked to risk stratify for preoperative for possible laprascopic vs open cholecystectomy (Intermediate risk surgery) - Patient has a known history of CAD with CABGx3 in 1993? and MN with 5 stents placed in 1994? - Stress test in 11/05/13 was not diagnostic for ischemic heart disease due to not reaching target heart rate, EF 47% - Most recent echo in 10/19/15 shows EF 35-40% with indeterminate diastolic dysfunction. - Trop 0.04/0.03 on this hospital stay - Takes home ASA, pravastatin, NTG, Ezetimibe, carvedilol - ICD placed for frequent Ventricular ectopy around 2004, recently changed on - Able to achieve >4 METS Plan - Repeat Echo shows EF 45% which is consistent with previous results - Pt represents moderate cardiac risk for intermediate surgery - Further testing not required as it would not decrease operative risk. - Continue BB, ASA, statin. Restart plavix when OK by surgery. (2) Acute cholecystitis Current Visit: Yes Status: Acute - Further management per Primary and General surgery teams (3) Ischemic cardiomyopathy Current Visit: Yes Status: Acute - S/p ICD, Stents, CABG as above. (4) CAD (coronary artery disease) Current Visit: Yes Status: Chronic - as above Qualifiers: Coronary Disease-Associated Artery/Lesion type: bypass graft, autologous vein Associated angina: without angina Qualified Code(s): I25.810 - Atherosclerosis of coronary artery bypass graft(s) without angina pectoris (5) CKD (chronic kidney disease) stage 3, GFR 30-59 ml/min Current Visit: Yes Status: Chronic History of CKD stage III - BUN/Cr of 30/1.23 which is mildly elevated from baseline - Likely secondary to decreased oral intake (6) HTN (hypertension) Current Visit: Yes Status: Chronic - Well controlled, most recent of Qualifiers: Hypertension type: essential hypertension Qualified Code(s): I10 - Essential (primary) hypertension Discussion w patient/family: The assessment and plan as outlined above was discussed with the patient and/or family members who expressed understanding and agreement. All questions were answered. Thank you for involving us in the care of your patient. Please call with any questions. History of Present Illness Consult date: 08/14/17 Requesting physician: Maureen Rae Consult reason: Preop risk stratification Chief complaint: ABdominal pain History of present illness: Mr. Clayton is a 81 year old male with a PMHx of CAD s/p CABGx3 and stents x5 , DM2, CKD, Barretts esophagus, OA presents to ED with a complaint of abdominal pain, nausea, vomiting, dark stool since Sunday. He also complained of fevers, chills, confusion. He was evaluated by ED and general surgery for likely biliary colic vs cholicystitis with cholelithiasis. On interview today, patient is asymptomatic and complains of no pain, SOB, fevers, chills, nausea, vomiting. He has a cardiac history of CABG x3 in 1993, MN with PCI and 5 stents in . No complaints of chest pain in the last month. He is able to walk around his house without complaints of chest pain or SOB. He does have some difficulty with stairs and also has arthritis which limits his mobility. He does not use cane or walker. Most recent cardiac workup includes echocardiogram on 10/19/15 showing EF 35-40% with moderate LV systolic dysfunction and indeterminate diastolic dysfunction. Stress test in records most recently 11/05/13 which was non diagnostic for ischemia as patient was unable to reach target heart rate. EF was measured to be 47% at that time. Also has ICD placement with most recent replacement on 08/09/[address] Hammond, indication was frequent PVCs on Holter monitor. Past Med Surg Social Fam HX - Past Medical History Medical history: coronary artery disease, diabetes, renal disease, other Additional medical history: baretts esophogus, sleep apnea Psychiatric history: no psych history - Past Surgical History Surgical History: angioplasty/stent, coronary bypass (CABG), LE Bypass, orthopedic, other, pacemaker/AICD Additional surgical history: cardiac stents - Social History Smoking Status: Never smoker Smokeless Tobacco Status: No Alcohol use: none Drug use: none - Family History Mother Adopted: [place]: Janeen Family Member Ethnicity: Non- Living Status: Unknown Hx Family Cardiac Disorders: No Hx Family Endocrine Disorder: Yes Father History Unknown: Yes Adopted: [place]: Luke Age: 55 Family Member Ethnicity: Non- Living Status: Age at : 55 Cause of : MN, PE Hx Family Cardiac Disorders: Yes Hx Family Respiratory Disorders: No Hx Family Cancer: No Hx Family GI Disorders: No Hx Family Endocrine Disorder: No Hx Family Neuromuscular Disorders: No Hx Family Neurologic Disorders: No Hx Family HEENT Disorders: No Hx Family Autoimmune Disorders: No Medications and Allergies ALPRAZolam [Xanax 0.25 MG Tablet] 0.25 mg PO BID PRN 10/19/15 [History] B2/Vits A,C,E/Lut/Zeaxanth/Min [Icaps Tablet] 1 each PO DAILY 10/19/15 [History] Carvedilol 12.5 mg PO BID 10/19/15 [History] Cholecalciferol (D-3) [Vitamin D] 2,000 unit PO DAILY 10/19/15 [History] Clopidogrel [Plavix] 75 mg PO DAILY 10/19/15 [History] Clotrimazole/Betamethasone Dip [Clotrimazole-Betamethasone Lot] 1 appl TP BID [History] Cyanocobalamin (B-12) [Vitamin B12] 1,000 mcg IM QMONTH 10/19/15 [History] Diclofenac Sodium [Voltaren] 1 appl TP BID 10/19/15 [History] Docusate [Colace] 100 mg PO DAILY PRN 10/19/15 [History] Ezetimibe [Zetia] 10 mg PO DAILY 10/19/15 [History] Ferrous Sulfate 325 mg PO BIDWM 10/19/15 [History] Finasteride [Proscar] 5 mg PO DAILY 10/19/15 [History] Furosemide [Lasix] 40 mg PO DAILY PRN 10/19/15 [History] Gabapentin [Neurontin] 300 mg PO BID 10/19/15 [History] Gluc Tidwell/Chondro Tidwell A/Vit C/Mn [Glucosamine Chondroitin Tab] 1 each PO DAILY 11/25 [History] Loratadine [Claritin] 10 mg PO DAILY 10/19/15 [History] Metoclopramide [Reglan] 10 mg PO DAILY 10/19/15 [History] Multivitamin [Multi-Day Vitamins] 1 each PO DAILY 10/19/15 [History] Nitroglycerin [Nitrostat] 0.4 mg SL AD PRN 10/19/15 [History] Oxycodone HCl/Acetaminophen [Percocet 5-325 mg Tablet] 1 each PO Q6H PRN [History] Pantoprazole Sodium [Protonix] 40 mg PO DAILY 10/19/15 [History] Potassium Chloride [K-Tab ER] 20 meq PO BID 10/19/15 [History] Pravastatin Sodium [Pravachol] 40 mg PO DAILY 10/19/15 [History] Tamsulosin [Flomax] 0.4 mg PO DAILY 10/19/15 [History] metFORMIN [Glucophage] 500 mg PO BIDWM 10/19/15 [History] Aspirin 81 mg PO DAILY #30 tab.chew 10/22/15 [Rx] 3 Allergy/AdvReac Type Severity Reaction Status Date / Time levofloxacin [From Levaquin] Allergy See Verified 10/19/15 12:24 Comments lisinopril Allergy See Verified 10/19/15 12:24 Comments simvastatin [From Zocor] Allergy See Verified 10/19/15 12:24 Comments atorvastatin [From Lipitor] AdvReac See Verified 10/19/15 12:24 Comments All Systems Review: The remainder of the systems were reviewed and are negative - Constitutional Constitutional: chills, fever(s), weight loss, no fatigue, no frequent falls - Cardiovascular Cardiovascular: no chest pain at rest, no chest pain with exertion, no claudication, no diaphoresis, no dyspnea at rest, no dyspnea on exertion, no palpitations - Respiratory Respiratory: no cough, no dyspnea - Gastrointestinal Gastrointestinal: abdominal pain, diarrhea, melena, nausea - Musculoskeletal Musculoskeletal: back pain Physical Examination Vital Signs, Last 4 Hours Temp Pulse Resp BP Pulse Ox 08/14/17 07:45 97.8 F 85 16 123/53 97 General: Conversant, No Apparent Distress HEENT: Atraumatic, Normocephaly, Mucus Membranes Moist Neck: No JVD, Normal carotid pulses Cardiac: Reg Rate and Rhythm, Normal S1 and S2, No Murmur Lungs: Normal Breath Sounds, No Wheeze, Rales, Rhonchi Neuro: Alert and responsive, No focal deficits noted Abdomen: Soft, Non-Tender Skin: No rashes noted on visualized skin Musculoskeletal: No Chest Wall Tenderness Extremities: No Clubbing, No Cyanosis, No Edema, Normal Pulses Results 08/14/17 04:58 08/14/17 04:58 Lab Results 08/14/17 08/14/17 08/14/17 04:58 04:58 04:58 WBC 8.1 Hgb 10.2 L Hct 31.4 L Plt Count 131 L Sodium 141 Potassium 3.7 Chloride 109 H Carbon Dioxide 23 BUN 30 H Creatinine 1.23 Glucose 118 H Calcium 8.8 Magnesium 1.8 Total Bilirubin 1.9 H AST 1026 H ALT > 500 H Alkaline Phosphatase 253 H Troponin I 0.03 Consult Discharge Plan - Plan Referrals: Judy Morgan, [employer] [Primary Care Provider] -
[2017-08-14] MEDS: Piperacillin/Tazobactam 3.375 GM in 0.9 % Sodium Chloride Mini Bag 100 ML IVPB SCH ×2 (09:38→16:51)
--- NOTE | 2017-08-14 14:30 | Event Note ---
Date of Encounter: 08/14/17 Time of Encounter: 14:30 Seen and assessed. Surgery following for acute cholecystitis. Follow recs
--- NOTE | 2017-08-14 15:38 | Event Note ---
Date of Encounter: 08/14/17 Time of Encounter: 15:35 Ultrasound gallbladder reviewed with [facility]. Findings include cholelithiasis with biliary sludge. Edematous gallbladder wall thickening is seen along the gallbladder fossa. The possibility of adjacent liver disease is described including mild hepatic steatosis. No pericholecystic fluid was identified in contradiction to the CT findings. The patient has remained afebrile and hemodynamically stable through the course of today. No recurrent abdominal pain, nausea or vomiting. Cardiology assessment noted. Aspirin, statins, and beta blockers can be administered perioperatively without interruption. The hope that her will be resumed as soon as possible postop. Surgery (laparoscopic cholecystectomy possible open cholecystectomy) remains recommended as it appears likely that the patient will experience recurrent acute abdominal pain, nausea/vomiting if cholecystectomy is not performed during this hospitalization. This has been discussed in detail with the patient and his family. Surgical consent has been obtained.
[2017-08-14] MEDS ORDERED: ALPRAZolam 0.25 MG TABLET PO PRN (15:39)
[2017-08-14] MEDS ORDERED: *HR* OxyCODONE/APAP 5/325 TABLET PO PRN (15:57)
[2017-08-14] MEDS ORDERED: Nitroglycerin 0.4 MG TAB.SUBL SL PRN (15:57)
[2017-08-14] MEDS ORDERED: Furosemide 40 MG TABLET PO PRN (15:57)
[2017-08-14] MEDS: *HR* Metformin 500 MG TABLET PO SCH (16:09)
--- NOTE | 2017-08-14 16:36 | Electrocardiograph Report ---
[address] [place], [place] [address] Test Date: 2017-08-13 Pat Name: Milton Clayton Department: 102 Room: 2A63 Gender: M [employer] Specialist: Vidhi : 1935 Requested By: Coleman Amaral Order Number: [id number] Reading MD: Deepak Noriega Measurements Intervals [place] Rate: 70 P: 98 MI: 217 QRS: -1 QRSD: 113 T: -36 QT: 398 QTc: 419 Interpretive Statements SINUS RHYTHM WITH FIRST DEGREE AV BLOCK LOW QRS VOLTAGE IN PRECORDIAL LEADS INFERIOR MYOCARDIAL INFARCTION, OF INDETERMINATE AGE Electronically Signed On 08-14-2017 16:35:27 EDT by Deepak Noriega
[2017-08-14] MEDS: Aspirin 81 MG TAB.CHEW PO SCH (16:50)
--- NOTE | 2017-08-14 20:57 | Anesthesia Evaluation PreOp ---
Date of Encounter: 08/15/17 Time of Encounter: 20:55 - Past History Planned Operation: Lap Lesia Cardiac History: Hyperlipidemia, Cardiac Surgery (CABG), Cardiac Stent (stents x 5 total), Pacemaker/ICD (recent device replacement 08/09/2017), Other (PVD s/p LE bypass) Pulmonary History: MARGY Dx STATISTICAL TYPIST History: Denies Any Significant HX Other Medical History: Renal, Diabetes Type II, GERD (Abreu's esophagitis) Anesthesia History: No Prior Anesthetic Complications (CABG,), Past Anesthesia ( CABG, AICD/Pacer, LE Bypass) Alcohol Use: none Drug use: none Medications and Allergies ALPRAZolam [Xanax 0.25 MG Tablet] 0.25 mg PO BID PRN 10/19/15 [History] B2/Vits A,C,E/Lut/Zeaxanth/Min [Icaps Tablet] 1 each PO DAILY 10/19/15 [History] Carvedilol 12.5 mg PO BID 10/19/15 [History] Cholecalciferol (D-3) [Vitamin D] 2,000 unit PO DAILY 10/19/15 [History] Clopidogrel [Plavix] 75 mg PO DAILY 10/19/15 [History] Clotrimazole/Betamethasone Dip [Clotrimazole-Betamethasone Lot] 1 appl TP BID [History] Cyanocobalamin (B-12) [Vitamin B12] 1,000 mcg IM QMONTH 10/19/15 [History] Diclofenac Sodium [Voltaren] 1 appl TP BID 10/19/15 [History] Docusate [Colace] 100 mg PO DAILY PRN 10/19/15 [History] Ezetimibe [Zetia] 10 mg PO DAILY 10/19/15 [History] Ferrous Sulfate 325 mg PO BIDWM 10/19/15 [History] Finasteride [Proscar] 5 mg PO DAILY 10/19/15 [History] Furosemide [Lasix] 40 mg PO DAILY PRN 10/19/15 [History] Gabapentin [Neurontin] 300 mg PO BID 10/19/15 [History] Gluc Tidwell/Chondro Tidwell A/Vit C/Mn [Glucosamine Chondroitin Tab] 1 each PO DAILY 11/25 [History] Loratadine [Claritin] 10 mg PO DAILY 10/19/15 [History] Metoclopramide [Reglan] 10 mg PO DAILY 10/19/15 [History] Multivitamin [Multi-Day Vitamins] 1 each PO DAILY 10/19/15 [History] Nitroglycerin [Nitrostat] 0.4 mg SL AD PRN 10/19/15 [History] Oxycodone HCl/Acetaminophen [Percocet 5-325 mg Tablet] 1 each PO Q6H PRN [History] Pantoprazole Sodium [Protonix] 40 mg PO DAILY 10/19/15 [History] Potassium Chloride [K-Tab ER] 20 meq PO BID 10/19/15 [History] Pravastatin Sodium [Pravachol] 40 mg PO DAILY 10/19/15 [History] Tamsulosin [Flomax] 0.4 mg PO DAILY 10/19/15 [History] metFORMIN [Glucophage] 500 mg PO BIDWM 10/19/15 [History] Aspirin 81 mg PO DAILY #30 tab.chew 10/22/15 [Rx] 3 Allergy/AdvReac Type Severity Reaction Status Date / Time levofloxacin [From Levaquin] Allergy See Verified 10/19/15 12:24 Comments lisinopril Allergy See Verified 10/19/15 12:24 Comments simvastatin [From Zocor] Allergy See Verified 10/19/15 12:24 Comments atorvastatin [From Lipitor] AdvReac See Verified 10/19/15 12:24 Comments - Meds/Allergy Pre-op Review Medications Reviewed: Yes Allergies Reviewed: Yes Beta Blockers on Current Med List: Yes (Carvedilol) If Beta Blockers taken, Date/Time (Last Dose taken): 08/14/2017 @ 1884 Anesthesia Results - Labs 08/14/17 04:58 08/14/17 04:58 Laboratory Results WBC 8.1 K/mcL (4.3-11.1) 08/14/17 04:58 RBC 3.44 M/mcL (4.19-5.50) L 08/14/17 04:58 Hgb 10.2 g/dL (12.9-16.9) L 08/14/17 04:58 Hct 31.4 % (37.5-50.1) L 08/14/17 04:58 MCV 91.3 fL (83.0-100.0) 08/14/17 04:58 MCH 29.7 pg (28.0-33.3) 08/14/17 04:58 MCHC 32.5 g/dL (31.6-35.5) 08/14/17 04:58 RDW 14.6 % (11.5-14.5) H 08/14/17 04:58 Plt Count 131 K/mcL (140-400) L 08/14/17 04:58 MPV 10.2 fL (9.4-12.4) 08/14/17 04:58 Immature Gran % 0.2 % (0-4) 08/14/17 04:58 Seg Neutrophils % 75.1 % 08/14/17 04:58 Lymphocytes % 15.3 % 08/14/17 04:58 Monocytes % 6.0 % 08/14/17 04:58 Eosinophils % 3.2 % 08/14/17 04:58 Basophils % 0.2 % 08/14/17 04:58 Neutrophils # 6.1 K/mcL (1.6-8.9) 08/14/17 04:58 Lymphocytes # 1.2 K/mcL (0.6-4.6) 08/14/17 04:58 Monocytes # 0.5 K/mcL (0.0-1.3) 08/14/17 04:58 Eosinophils # 0.3 K/mcL (0.0-0.6) 08/14/17 04:58 Basophils # 0.0 K/mcL (0.0-0.2) 08/14/17 04:58 PT 11.9 Seconds (9.4-12.1) 08/13/17 22:30 INR 1.1 08/13/17 22:30 APTT 28.2 Seconds (26.0-36.0) 08/13/17 22:30 Sodium 141 mEq/L (136-145) 08/14/17 04:58 Potassium 3.7 mEq/L (3.5-5.1) 08/14/17 04:58 Chloride 109 mEq/L (98-107) H 08/14/17 04:58 Carbon Dioxide 23 mEq/L (23-29) 08/14/17 04:58 BUN 30 mg/dL (8-23) H 08/14/17 04:58 Creatinine 1.23 mg/dL (0.70-1.30) 08/14/17 04:58 Est GFR ( Amer) > 60 (> 60) 08/14/17 04:58 Est GFR (Non-Af Amer) 56 (> 60) L 08/14/17 04:58 BUN/Creatinine Ratio 24 (6-26) 08/14/17 04:58 Glucose 118 mg/dL (70-105) H 08/14/17 04:58 POC Glucose 121 mg/dL (70-99) H 08/14/17 13:06 Calculated Osmolality 299 (280-300) 08/14/17 04:58 Calcium 8.8 mg/dL (8.6-10.3) 08/14/17 04:58 Magnesium 1.8 mg/dL (1.6-2.6) 08/14/17 04:58 Total Bilirubin 1.9 mg/dL (0.3-1.0) H 08/14/17 04:58 Direct Bilirubin 1.0 mg/dL (0.0-0.2) H 08/13/17 22:30 Indirect Bilirubin 1.1 mg/dL (0.0-1.2) 08/13/17 22:30 AST 1026 Units/L (13-39) H 08/14/17 04:58 ALT > 500 Units/L (7-52) H 08/14/17 04:58 Alkaline Phosphatase 253 Units/L (34-104) H 08/14/17 04:58 Troponin I 0.03 ng/mL (< 0.04) 08/14/17 12:33 Serum Total Protein 5.8 g/dL (6.4-8.9) L 08/14/17 04:58 Albumin 3.3 g/dL (3.5-5.7) L 08/14/17 04:58 Globulin 2.5 g/dL (2.4-3.5) 08/14/17 04:58 Albumin/Globulin Ratio 1.3 (1.1-2.2) 08/14/17 04:58 Lipase 69 Units/L (11-82) 08/13/17 22:30 Urine Color Dark Yellow (Yellow) 08/13/17 22:35 Urine Clarity Cloudy (Clear) A 08/13/17 22:35 Urine pH 6.0 pH Units (5.0-8.0) 08/13/17 22:35 Ur Specific Winston 1.012 (1.010-1.025) 08/13/17 22:35 Urine Protein 30 mg/dL (Neg-Trace) H 08/13/17 22:35 Urine Glucose (UA) Normal mg/dL (Normal) 08/13/17 22:35 Urine Ketones Negative mg/dL (Negative) 08/13/17 22:35 Urine Blood Trace (Negative) H 08/13/17 22:35 Urine Nitrite Negative (Negative) 08/13/17 22:35 Urine Bilirubin Small (Negative) H 08/13/17 22:35 Urine Urobilinogen Normal mg/dL (Normal) 08/13/17 22:35 Ur Leukocyte Esterase Negative (Negative) 08/13/17 22:35 Urine Microscopic RBC 3-5 per hpf (0-3) H 08/13/17 22:35 Urine Microscopic WBC 3-5 per hpf (0-3) H 08/13/17 22:35 Ur Squamous Epith Cells Many per lpf (None-Few) H 08/13/17 22:35 Urine Bacteria None Seen per hpf (None-Few) 08/13/17 22:35 Hyaline Casts None Seen per lpf (None-Few) 08/13/17 22:35 Urine Yeast Test Not Performed 08/13/17 22:35 Ur Culture Indicated? NO (NO) 08/13/17 22:35 Acetaminophen < 10 mcg/mL (10-20) L 08/13/17 22:30 Impressions Echocardiogram 08/14/17 02:42 Impressions: LVEF 35-40%. LV systolic dysfunction with regional variation - hypokinesis of the inferior and inferolateral donahue. Segmental wall dysfunction is similar when compared to echo from 10/19/2015. Moderate left ventricular diastolic dysfunction. Normal RV size. Probably mild to moderate reduction in function. Mild mitral regurgitation. Mild-moderate aortic regurgitation. Mild tricuspid regurgitation. Borderline pulmonary hypertension. Left Ventricular Wall Motion: Rest Echo Findings The apex, apical inferior, mid inferior, basal inferior, apical anterior, mid anterior, basal anterior, apical septal, mid inferior septal, basal inferior septal, apical lateral, mid anterior lateral, basal anterior lateral, mid anterior septal, mid inferior lateral, basal anterior septal and basal inferior lateral donahue were hypokinetic. Findings: Study Quality * Technically adequate exam. ECG Findings * Probably sinus rhythm with probable PVCs. Left Ventricle * LVEF 35-40%. * Moderate left ventricular diastolic dysfunction. * Normal LV chamber size and wall thickness. Right Ventricle * Normal RV size. Probably mild to moderate reduction in function. Left Atrium * Severely dilated left atrium. Right Atrium * Normal right atrial size. Mitral Valve * Normal mitral valve structure. * No mitral stenosis. * Mild mitral regurgitation. Aortic Valve * Trileaflet aortic valve. * Mildly thickened aortic valve leaflets. * Mild-moderate aortic regurgitation. * No aortic stenosis. Tricuspid Valve * Normal tricuspid valve structure. * Mild tricuspid regurgitation. * Estimated RA pressure is 3 mmHg. * Estimated RVSP is 34 mmHg. * Borderline pulmonary hypertension. Pulmonic Valve * Pulmonic valve is not well visualized. * No pulmonic stenosis. * No pulmonic regurgitation. Pulmonary Artery * Pulmonary artery not well visualized. Aorta * Normally sized aortic root. Pericardium * There is no pericardial effusion present. Device lead * A device lead was visualized in the right atrium and right ventricle. Interatrial Septum * No evidence of PFO by color Doppler. IVC * Normal IVC dimensions and inspiratory collapse. Gallbladder Ultrasound 08/14/17 11:00 IMPRESSION: 1. Cholelithiasis and biliary sludge. Edematous gallbladder wall thickening is seen along the gallbladder fossa, potentially due to adjacent liver disease. No additional findings suggestive of cholecystitis are identified. Consider further evaluation with a nuclear medicine hepatobiliary scan if there are clinical findings of cholecystitis. 2. Mild hepatic steatosis. 3. Right renal cyst for which no follow-up is recommended. D/ / Aman Nesbitt MD / Aman Nesbitt MD Interpreting Provider: Aman Nesbitt MD Abdomen/Pelvis CT 08/14/17 23:23 IMPRESSION: 1. Cholelithiasis with mild pericholecystic fluid. Pattern could potentially indicate acute cholecystitis. Recommend correlation with clinical and laboratory results. Follow-up ultrasound may be considered if indicated. 2. 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 No significant change from prior imaging. Aneurysm in the thoracic aorta is not well visualized on the current study. IMPRESSION: Managing Abdominal Aortic Aneurysms 4.0-4.4 cm: Every 1 year. Recommend vascular consultation. Reference: J Vasc Surg. 2008;50(4 Suppl):S2-49 D/ / Javi Estrada MD / Javi Estrada MD Interpreting Provider: Javi Estrada MD - Imaging EKG: image reviewed (70bpm - SINUS RHYTHM WITH FIRST DEGREE AV BLOCK LOW QRS VOLTAGE IN PRECORDIAL LEADS INFERIOR MYOCARDIAL INFARCTION, OF INDETERMINATE AGE Electronically Signed On 08-14-2017 16:35:27 EDT by Deepak Noriega) Anesthesia Exam Vital Signs Temp Pulse Resp BP Pulse Ox 08/14/17 20:26 98.3 F 65 15 133/66 94 08/14/17 17:19 98.3 F 62 18 148/59 95 08/14/17 13:04 98.5 F 59 18 148/73 99 08/14/17 09:54 97 08/14/17 07:45 97.8 F 85 16 123/53 97 08/14/17 04:49 97 08/14/17 04:23 97.8 F 64 18 118/60 97 08/14/17 03:34 16 111/64 08/13/17 22:13 98.8 F 108 16 97/72 96 Intake and Output 08/14/17 08/14/17 08/14/17 07:59 15:59 23:59 Intake Total 100 / 100 1000 / 1000 Output Total 500 / 500 0 / 0 Balance -500 / -500 100 / 100 1000 / 1000 Intake: IV Fluids 100 / 100 1000 / 1000 0.9 % Sodium Chloride 1,000 ML 1000 / 1000 @ 100 mls/hr IVC .Q10H ANN Rx#: [id number] Zosyn 3.375 GM In 0.9 % Sodium 100 / 100 Chloride (Mini-Bag +) 100 ML @ 25 mls/hr IVPB Q8H ANN Rx#: [id number] Oral 0 / 0 Output: Urine 500 / 500 0 / 0 Other: Meal NPO Stool Size Moderate Stool Consistency formed Stool Characteristics Normal for Patient Stool Color Brown Weight 77.9 kg Blood Glucose* 114 121 150 Patient Weight 08/14/17 23:59 Weight 77.9 kg Height: 5'9" Weight: 171# BMI = 25.4 - HEENT Pupil (Motor): Pupils equal, EOMI Mallampati: II Teeth: Normal (Fair dentition) Oral Opening: Greater than 3 - STATISTICAL TYPIST LOC: Oriented STATISTICAL TYPIST Motor: Normal RUE, Normal LUE, Normal RLE, Normal LLE, Normal Face STATISTICAL TYPIST Sensory: Normal: RUE, LUE, RLE, LLE, Face - Cardiac Rhythm: Regular Murmur: None - Pulmonary Breath Sounds: bilateral Clear Respiratory Effort: Symmetrical Anesthesia Assess/Plan ASA Score: 3 (CAD, AICD/Pacer, PVDz, HTN, Chol, MARGY, CKDz, DM) Modified Seward Scale for Level of Consciousness: Cooperative, oriented, and tranquil Anesthetic Plan: General Monitoring Plan: Standard Monitors Recovery Plan: PACU Anes Supervising Prov Stmt: Pt seen/evaluated, R&B Discussed, questions answered and consent obtained. Miguel A Gonzlaes MD
[2017-08-14] MEDS: Gabapentin 300 MG CAPSULE PO SCH (21:03)
[2017-08-15] MEDS: Insulin LISPRO 300 UNITS/3 ML VIAL SQ SCH ×4 (02:16→22:29)
[2017-08-15] MEDS: Piperacillin/Tazobactam 3.375 GM in 0.9 % Sodium Chloride Mini Bag 100 ML IVPB SCH ×2 (04:45→10:22)
[2017-08-15 06:53] LABS: Basophils % 0.5 %; Eosinophils # 0.4 K/mcL (0.0-0.6); Eosinophils % 5.9 %; Hematocrit 32.4 % (37.5-50.1); Hemoglobin 10.6 g/dL (12.9-16.9); Immature Granulocytes % 0.3 % (0-4); Lymphocytes # 0.9 K/mcL (0.6-4.6); Lymphocytes % 14.6 %; Mean Corpuscular HGB Conc 32.7 g/dL (31.6-35.5); Mean Corpuscular Hemoglobin 29.7 pg (28.0-33.3); Mean Corpuscular Volume 90.8 fL (83.0-100.0); Mean Platelet Volume 10.5 fL (9.4-12.4); Monocytes # 0.6 K/mcL (0.0-1.3); Neutrophils # 4.5 K/mcL (1.6-8.9); Platelet Count 133 K/mcL (140-400); Red Blood Count 3.57 M/mcL (4.19-5.50); Red Cell Distribution Width 14.4 % (11.5-14.5); Segmented Neutrophils % 69.7 %
[2017-08-15 07:09] LABS: Alanine Aminotransferase > 500 Units/L (7-52); Albumin 3.3 g/dL (3.5-5.7); Albumin/Globulin Ratio 1.4 (1.1-2.2); Alkaline Phosphatase 211 Units/L (34-104); Aspartate Amino Transferase 267 Units/L (13-39); BUN/Creatinine Ratio 19 (6-26); Bilirubin,Total 0.7 mg/dL (0.3-1.0); Blood Urea Nitrogen 17 mg/dL (8-23); Calcium 8.9 mg/dL (8.6-10.3); Carbon Dioxide 23 mEq/L (23-29); Chloride 111 mEq/L (98-107); Globulin 2.4 g/dL (2.4-3.5); Glucose 127 mg/dL (70-105); Osmolality,Calculated 297 (280-300); Potassium 3.5 mEq/L (3.5-5.1); Sodium 142 mEq/L (136-145); Total Protein 5.7 g/dL (6.4-8.9); eGFR For African Americans > 60 (> 60); eGFR For Non-African Americans > 60 (> 60)
[2017-08-15] MEDS: *HR* Metformin 500 MG TABLET PO SCH (07:51)
[2017-08-15] MEDS: Aspirin 81 MG TAB.CHEW PO SCH (08:02)
[2017-08-15] MEDS: Gabapentin 300 MG CAPSULE PO SCH ×2 (08:07→20:24)
[2017-08-15] MEDS ORDERED: *HR* OxyCODONE/APAP 5/325 TABLET PO PRN (08:38)
[2017-08-15] MEDS ORDERED: (Ezetimibe [Zetia] 10 MG) PO SCH (09:00)
[2017-08-15] MEDS ORDERED: (Pravastatin Sodium [Pravachol] 40 MG) PO SCH (09:00)
[2017-08-15] MEDS ORDERED: Finasteride 5 MG TABLET PO SCH (09:00)
[2017-08-15] MEDS ORDERED: Multivit/Ca/Min/Fe/FA 1 TAB TABLET PO SCH (09:00)
[2017-08-15] MEDS ORDERED: GLUC SU PO SCH (09:00)
[2017-08-15] MEDS ORDERED: VIT C PO SCH (09:00)
[2017-08-15] MEDS ORDERED: [UNRECOGNIZED DRUG - OTHER] PO SCH (09:00)
[2017-08-15] MEDS ORDERED: CHONDRO SU A PO SCH (09:00)
[2017-08-15] MEDS ORDERED: Loratadine 10 MG TABLET PO SCH (09:00)
[2017-08-15] MEDS ORDERED: Neostigmine Methylsulfate 3 MG/3 ML SYRINGE ONE (12:53)
[2017-08-15] MEDS ORDERED: Dexamethasone 4 MG/ML VIAL ONE (12:56)
[2017-08-15] MEDS ORDERED: Lidocaine -MPF 2% 2 ML VIAL ONE (12:56)
[2017-08-15] MEDS ORDERED: *HR* Succinylcholine 200 MG/10 ML VIAL IVP ONE (12:56)
[2017-08-15] MEDS ORDERED: Lidocaine -MPF 4% 5 ML AMPUL ONE (12:56)
[2017-08-15] MEDS ORDERED: *HR* Rocuronium Bromide 50 MG/5 ML VIAL ONE (12:56)
[2017-08-15] MEDS ORDERED: Ondansetron 4 MG/2 ML VIAL ONE (12:56)
[2017-08-15] MEDS ORDERED: *HR* FentaNYL (PF) 100 MCG/2 ML VIAL ONE (12:56)
[2017-08-15] MEDS ORDERED: *HR* Propofol 200 MG/20 ML VIAL IVP ONE (12:56)
[2017-08-15] MEDS ORDERED: Ondansetron 4 MG/2 ML VIAL IVP ONE (13:01)
[2017-08-15] MEDS ORDERED: Dexamethasone 4 MG/ML VIAL IVP ONE (13:01)
[2017-08-15] MEDS ORDERED: *HR* Labetalol 20 MG/4 ML SYRINGE IVP PRN (13:01)
[2017-08-15] MEDS ORDERED: *HR* Morphine 2 MG/ML SYRINGE IVP PRN (13:01)
--- NOTE | 2017-08-15 13:19 | Internal Med Progress Note ---
Date of Encounter: 08/15/17 Time of Encounter: 13:00 - Assessment and plan (1) Acute cholecystitis Current Visit: Yes Status: Acute Assessment and plan: Plan for cholecystectomy by surgery. Continue on IV Zosyn. Pain Control. Gentle hydration (2) HTN (hypertension) Current Visit: Yes Status: Chronic Assessment and plan: Resume home antihypertensives. Qualifiers: Hypertension type: essential hypertension Qualified Code(s): I10 - Essential (primary) hypertension (3) CKD (chronic kidney disease) stage 3, GFR 30-59 ml/min Current Visit: Yes Status: Chronic Assessment and plan: Creatinine slightly elevated above baseline. We will gently hydrate keep her mind his history of ischemic cardiomyopathy. Avoid nephrotoxins. (4) CAD (coronary artery disease) Current Visit: Yes Status: Chronic Assessment and plan: Resume cardiac meds. Hold antiplatelets for now in anticipation of surgery. Qualifiers: Coronary Disease-Associated Artery/Lesion type: bypass graft, autologous vein Associated angina: without angina Qualified Code(s): I25.810 - Atherosclerosis of coronary artery bypass graft(s) without angina pectoris (5) Ischemic cardiomyopathy Current Visit: Yes Status: Acute Assessment and plan: Patient's previous echo from a couple years showed an EF of 35-40%. We will repeat an echo and ask cardiology to see for preoperative clearance. Patient is not in exacerbation of CHF and seems euvolemic. (6) Preop cardiovascular exam Current Visit: Yes Status: Acute Assessment and plan: No further cardiac testing indicated - Time Spent With Patient Total time spent is greater than 50% in coordination of care (as documented) at patient's floor/unit and/or counseling patient: - Subjective Interval history: No acute events overnight - Constitutional Vitals: Temp Pulse Resp BP Pulse Ox 98.0 F 58 17 161/71 94 08/15/17 11:35 08/15/17 11:35 08/15/17 11:35 08/15/17 11:35 08/15/17 11:35 - Head Head exam: Present: atraumatic, normocephalic - Eye Eye exam: Present: PERRL, conjuntiva pink, sclera anicteric Pupils: Present: PERRL - Neck Neck exam general surgery: Present: supple, trachea midline. Absent: lymphadenopathy - Respiratory Respiratory exam: Present: CTAB. Absent: accessory muscle use, rales, rhonchi, wheezes - Cardiovascular Cardiovascular exam: Present: RRR, +S1, +S2. Absent: diastolic murmur, gallop, rubs, systolic murmur - GI/Abdominal GI/Abdominal exam: Present: normal bowel sounds, soft, no peritoneal signs. Absent: distended, tenderness - Extremities Exam Extremities exam: Present: warm, radial pulses palpable and symmetrical. Absent : calf tenderness, cyanotic, pedal edema - Neurological Exam Neurological exam: Present: CN II-XII intact, oriented X3, no focal deficits. Absent: pronater drift, facial droop, speech deficit - Skin Skin exam: Present: dry, intact Internal Medicine: Result - Labs CBC & Chem 7: 08/15/17 06:13 08/15/17 06:13 Labs: Short CBC 08/15/17 Range/Units 06:13 WBC 6.4 (4.3-11.1) K/mcL Hgb 10.6 L (12.9-16.9) g/dL Hct 32.4 L (37.5-50.1) % Plt Count 133 L (140-400) K/mcL Neutrophils # 4.5 (1.6-8.9) K/mcL BMP 08/15/17 06:13 Sodium 142 Potassium 3.5 Chloride 111 H Carbon Dioxide 23 BUN 17 Creatinine 0.88 Glucose 127 H Calcium 8.9 Cardiac Enzymes 08/14/17 Range/Units 12:33 Troponin I 0.03 (< 0.04) ng/mL Liver Function 08/15/17 Range/Units 06:13 Total Bilirubin 0.7 (0.3-1.0) mg/dL AST 267 H (13-39) Units/L ALT > 500 H (7-52) Units/L Alkaline Phosphatase 211 H (34-104) Units/L Albumin 3.3 L (3.5-5.7) g/dL - ABG Interpretation ABG results: PT/INR, D-dimer PT 11.9 Seconds (9.4-12.1) 08/13/17 22:30 Consult Discharge Plan - Plan Referrals: Judy Morgan, [employer] [Primary Care Provider] -
[2017-08-15] MEDS ORDERED: Acetaminophen IV 1,000 MG/100 ML INFUS..BTL ONE (13:49)
[2017-08-15] MEDS ORDERED: Bupivacaine/EPI 1:200k 0.25%PF 30 ML VIAL ONE (13:59)
[2017-08-15] MEDS ORDERED: Isovue-300 50 ML VIAL IVP ONE (13:59)
[2017-08-15] MEDS ORDERED: *HR* Etomidate 40 MG/20 ML VIAL IVP ONE (14:02)
[2017-08-15] MEDS ORDERED: Lacri-Lube 3.5 GM TUBE ONE (14:32)
[2017-08-15] MEDS ORDERED: SUGAMMADEX SODIUM 500 MG/5 ML VIAL IV ONE (14:48)
[2017-08-15] MEDS ORDERED: Ringers Solution, Lactated 250 ML IVC ONE (15:32)
--- NOTE | 2017-08-15 15:40 | Operative Note ---
Date of procedure: 08/15/17 Pre-op diagnosis: Cholecystitis, cholelithiasis, acute biliary colic Post-op diagnosis: same Procedure: Laparoscopic cholecystectomy, intraoperative cholangiogram Complications: None apparent Anesthesia: GETA Local Anesthetics: 0.25% Sensorcaine HCL with Epinephrine 1:200,000 SubQ (cc) ( 20 mL) Surgeon: Jose Newby Was there an supply chain assistant present: No Estimated blood loss (cc): 10 IV fluids (cc): 700 Specimen: gallbladder Condition: stable Disposition: PACU Procedure in Detail: The patient was brought to the operating room where he was placed supine on the procedure table. The patient was appropriately identified as to person and procedure. The accuracy of this information was confirmed by the patient and procedure team. The patient was then intubated and anesthetized under the supervision of Dr. Kate Martini. The abdomen was prepped and draped in usual sterile fashion. When examined under anesthesia, the gallbladder was not palpable, there was no obvious organomegaly. Several milliliters of 0.25% bupivacaine with 1-200,000 units epinephrine was infiltrated into the infraumbilical skin. A small transverse incision was made, dissection was extended to the fascia. Additional bupivacaine with epinephrine was infiltrated into the fascia. The fascia was grasped, elevated, and incised. An 11 mm XCel port was established. The rigid laparoscope was placed within the obturator to visualize passage through the layers of the anterior abdominal wall. When the abdominal cavity was accessed, the obturator was replaced by the rigid laparoscope, the abdomen was insufflated with gaseous carbon dioxide. There was no obvious visible injury from establishing the port. Under direct visualization 3 additional ports were placed along the right costal margin. Each site was infiltrated with the bupivacaine with epinephrine solution. The gallbladder was grasped and retracted. The gallbladder donahue were not thickened as described on CT or sonogram but there was some pericholecystic fluid present. The hepatoduodenal ligament was dissected. The cystic duct was skeletonized and clipped near the infundibulum of the gallbladder. Via a separate percutaneous insertion site, a Taut cholangiogram catheter was introduced. The cystic duct was incised, the cholangiogram catheter inserted. Using C-arm fluoroscopy a cholangiogram was then completed. This demonstrated a lengthy cystic duct, a normal appearing common hepatic duct and common bile duct. There was free flow of contrast into the duodenum. With administration of contrast the pancreatic duct highlighted and appeared normal. Small hepatobiliary tree highlighted in a retrograde fashion but filling of the left hepatic duct was incomplete. There were no filling defects. Dr. Loredo, [facility], provided an intraoperative bleeding with no additional findings identified. The cholangiocatheter was removed. The cystic duct was clipped twice and divided. Cystic artery was identified, skeletonized, clipped and divided. (2 clips proximally, 1 clip distally). The gallbladder was then dissected from the liver bed using Ethicon harmonic rashawn. When the gallbladder was from the surrounding structures, it was placed in an endoscopic pouch and extracted through the infraumbilical opening. The gallbladder was retrieved and sent to pathology for analysis. Small stones were evident within the gallbladder. It was inspected for adequate hemostasis. This was aided by application of Lindy to the gallbladder fossa. The pneumoperitoneum was then evacuated, the instrumentation removed. The fascia of the infraumbilical opening was closed with interrupted [id number] 0 Vicryl using S retractors. The skin edges were approximated with subcuticular 4 -0 Vicryl. The incisions were sealed with Dermabond dermal adhesive. The patient was taken to PACU in stable condition. Needle, sponge, and instrument counts were correct at the close of the case. Total volume of 0.25% bupivacaine with 1-200,000 units epinephrine, 20 mL.
--- NOTE | 2017-08-15 16:12 | Anesthesia Evaluation Post Op ---
Date of Encounter: 08/15/17 Time of Encounter: 16:11 - Vital Signs Vital Signs: Vital Signs/O2 Sat, Most Current Temp Pulse Resp BP Pulse Ox 97.5 F L 62 14 155/79 97 08/15/17 16:06 08/15/17 16:06 08/15/17 16:06 08/15/17 16:08/15/17 16:06 - Lungs Lungs: Clear Ascult./Percussion - Airway Airway: Non-obstructed - Mental Status Mental Status: Alert & Oriented, Answers Appropriately - Pain Pain Scale: 0 Pain Scale used: Numeric (1 - 10) - Nausea Vomiting Nausea Vomiting: Not Present - Hydration Hydration: NPO, Has not voided - Discharge PostOp Status: Transfer Patient to floor
[2017-08-15] MEDS ORDERED: Naloxone 0.4 MG/ML INJ IVP PRN (17:16)
[2017-08-15] MEDS ORDERED: ALPRAZolam 0.25 MG TABLET PO PRN (17:16)
[2017-08-15] MEDS ORDERED: Dextrose Gel 15 GM/37.5 ML TUBE PO PRN ×2 (17:16→18:19)
[2017-08-15] MEDS ORDERED: *HR* Dextrose 50 % in Water (Syg) 50 ML SYRINGE IVP PRN (17:16)
[2017-08-15] MEDS ORDERED: Ondansetron 4 MG/2 ML VIAL IVP PRN (17:16)
[2017-08-15] MEDS ORDERED: Nitroglycerin 0.4 MG TAB.SUBL SL PRN (17:16)
[2017-08-15] MEDS ORDERED: D5% in Water 1,000 ML IVC PRN (17:16)
[2017-08-15] MEDS ORDERED: Furosemide 40 MG TABLET PO PRN (17:16)
[2017-08-15] MEDS ORDERED: *HR* OxyCODONE Immed Rel 5 MG TABLET PO PRN (17:16)
[2017-08-15] MEDS: Ringers Solution, Lactated 1,000 ML IVC SCH (18:48)
[2017-08-15] MEDS ORDERED: Insulin LISPRO 300 UNITS/3 ML VIAL SQ SCH (19:30)
[2017-08-16] MEDS: *HR* OxyCODONE/APAP 5/325 TABLET PO PRN ×2 (05:07→17:44)
[2017-08-16] MEDS: Ringers Solution, Lactated 1,000 ML IVC SCH (05:08)
[2017-08-16 06:38] LABS: Basophils % 0.1 %; Hematocrit 28.8 % (37.5-50.1); Hemoglobin 9.4 g/dL (12.9-16.9); Immature Granulocytes % 0.5 % (0-4); Lymphocytes # 0.8 K/mcL (0.6-4.6); Lymphocytes % 10.4 %; Mean Corpuscular HGB Conc 32.6 g/dL (31.6-35.5); Mean Corpuscular Hemoglobin 29.7 pg (28.0-33.3); Mean Corpuscular Volume 91.1 fL (83.0-100.0); Mean Platelet Volume 10.3 fL (9.4-12.4); Monocytes # 0.5 K/mcL (0.0-1.3); Monocytes % 6.4 %; Neutrophils # 6.5 K/mcL (1.6-8.9); Platelet Count 151 K/mcL (140-400); Red Blood Count 3.16 M/mcL (4.19-5.50); Red Cell Distribution Width 14.2 % (11.5-14.5); Segmented Neutrophils % 82.6 %
[2017-08-16 07:01] LABS: Alanine Aminotransferase 377 Units/L (7-52); Albumin 3.1 g/dL (3.5-5.7); Albumin/Globulin Ratio 1.3 (1.1-2.2); Alkaline Phosphatase 156 Units/L (34-104); Aspartate Amino Transferase 88 Units/L (13-39); BUN/Creatinine Ratio 21 (6-26); Bilirubin,Total 0.5 mg/dL (0.3-1.0); Blood Urea Nitrogen 18 mg/dL (8-23); Carbon Dioxide 23 mEq/L (23-29); Chloride 112 mEq/L (98-107); Globulin 2.4 g/dL (2.4-3.5); Glucose 199 mg/dL (70-105); Osmolality,Calculated 303 (280-300); Potassium 3.7 mEq/L (3.5-5.1); Sodium 143 mEq/L (136-145); Total Protein 5.5 g/dL (6.4-8.9); eGFR For African Americans > 60 (> 60); eGFR For Non-African Americans > 60 (> 60)
[2017-08-16] MEDS: Gabapentin 300 MG CAPSULE PO SCH ×2 (08:33→20:55)
[2017-08-16] MEDS: Multivit/Ca/Min/Fe/FA 1 TAB TABLET PO SCH (08:33)
[2017-08-16] MEDS: Aspirin 81 MG TAB.CHEW PO SCH (08:34)
[2017-08-16] MEDS: Finasteride 5 MG TABLET PO SCH (08:34)
[2017-08-16] MEDS: Insulin LISPRO 300 UNITS/3 ML VIAL SQ SCH ×4 (08:34→21:00)
--- NOTE | 2017-08-16 12:32 | Internal Med Progress Note ---
Date of Encounter: 08/16/17 Time of Encounter: 12:30 - Assessment and plan (1) Acute cholecystitis Current Visit: Yes Status: Acute Assessment and plan: s/p cholecystectomy. Tolerated procedure well with no acute complications. (2) HTN (hypertension) Current Visit: Yes Status: Chronic Assessment and plan: Resume home antihypertensives. Qualifiers: Hypertension type: essential hypertension Qualified Code(s): I10 - Essential (primary) hypertension (3) CKD (chronic kidney disease) stage 3, GFR 30-59 ml/min Current Visit: Yes Status: Chronic Assessment and plan: Creatinine slightly elevated above baseline. We will gently hydrate keep her mind his history of ischemic cardiomyopathy. Avoid nephrotoxins. (4) CAD (coronary artery disease) Current Visit: Yes Status: Chronic Assessment and plan: Resume cardiac meds. Qualifiers: Coronary Disease-Associated Artery/Lesion type: bypass graft, autologous vein Associated angina: without angina Qualified Code(s): I25.810 - Atherosclerosis of coronary artery bypass graft(s) without angina pectoris (5) Ischemic cardiomyopathy Current Visit: Yes Status: Acute Assessment and plan: Patient is not in exacerbation of CHF and is euvolemic. (6) Dysphagia Current Visit: Yes Status: Acute Assessment and plan: Obtain speech therapy assessment Qualifiers: Dysphagia type: unspecified Qualified Code(s): R13.10 - Dysphagia, unspecified - Time Spent With Patient Total time spent is greater than 50% in coordination of care (as documented) at patient's floor/unit and/or counseling patient: - Subjective Interval history: No acute events overnight - Constitutional Vitals: Temp Pulse Resp BP Pulse Ox 98.1 F 71 20 169/82 96 08/16/17 11:15 08/16/17 11:15 08/16/17 11:15 08/16/17 11:15 08/16/17 11:15 - Head Head exam: Present: atraumatic, normocephalic - Eye Eye exam: Present: PERRL, conjuntiva pink, sclera anicteric Pupils: Present: PERRL - Neck Neck exam general surgery: Present: supple, trachea midline. Absent: lymphadenopathy - Respiratory Respiratory exam: Present: CTAB. Absent: accessory muscle use, rales, rhonchi, wheezes - Cardiovascular Cardiovascular exam: Present: RRR, +S1, +S2. Absent: diastolic murmur, gallop, rubs, systolic murmur - GI/Abdominal GI/Abdominal exam: Present: normal bowel sounds, soft, no peritoneal signs. Absent: distended, tenderness - Extremities Exam Extremities exam: Present: warm, radial pulses palpable and symmetrical. Absent : calf tenderness, cyanotic, pedal edema - Neurological Exam Neurological exam: Present: CN II-XII intact, oriented X3, no focal deficits. Absent: pronater drift, facial droop, speech deficit - Skin Skin exam: Present: dry, intact Internal Medicine: Result - Labs CBC & Chem 7: 08/16/17 05:56 08/16/17 05:56 Labs: Short CBC 08/16/17 Range/Units 05:56 WBC 7.9 (4.3-11.1) K/mcL Hgb 9.4 L (12.9-16.9) g/dL Hct 28.8 L (37.5-50.1) % Plt Count 151 (140-400) K/mcL Neutrophils # 6.5 (1.6-8.9) K/mcL BMP 08/16/17 05:56 Sodium 143 Potassium 3.7 Chloride 112 H Carbon Dioxide 23 BUN 18 Creatinine 0.86 Glucose 199 H Calcium 9.0 Liver Function 08/16/17 Range/Units 05:56 Total Bilirubin 0.5 (0.3-1.0) mg/dL AST 88 H (13-39) Units/L ALT 377 H (7-52) Units/L Alkaline Phosphatase 156 H (34-104) Units/L Albumin 3.1 L (3.5-5.7) g/dL - ABG Interpretation ABG results: PT/INR, D-dimer PT 11.9 Seconds (9.4-12.1) 08/13/17 22:30 - Impressions Impressions Cholangiogram,Operative 08/15/17 11:40 IMPRESSION: Normal intraoperative cholangiogram status post cholecystectomy. D/ / Deepak Carter MD / Deepak Carter MD Interpreting Provider: Deepak Carter MD - VTE Documentation of Mechanical Device: Intermittent pneumatic compression device Consult Discharge Plan - Plan Referrals: Judy Morgan, TRAVIS [Primary Care Provider] -
--- NOTE | 2017-08-16 14:39 | General Surgery Progress Note ---
Date of Encounter: 08/16/17 Time of Encounter: 14:33 Subjective Narrative: General Surgery - POD #1 Patient complaining of right shoulder and chest pain, likely due to gaseous insufflation during the laparoscopic surgery completed yesterday. Patient has been afebrile since surgery; 98.1, hemodynamically stable with a pulse of 71, respirations 20, blood pressure 169/82. Lungs: Copious rales on the right side but no abdominal pain on deep inspiration, no pleuritic pain. O2 saturations 95-96% on room air Abdomen: Soft, nontender; active bowel sounds. Patient is tolerating diet without nausea or vomiting. Port sites - intact Laboratories: White count 7.9, hemoglobin 9.4 with hematocrit 28.4; platelet count 151,000. Electrolytes normal except for chloride of 112; BUN 18, creatinine 0.86. AST 88 (previously 267); ALT 377 (previously greater than 500); alkaline phosphatase 156 (previously 211); total bilirubin 0.5. Impression: Postoperative day 1 - status post laparoscopic cholecystectomy with intraoperative cholangiogram Acceptable postoperative status Significant improvement in his LFTs Anemia - H&H decreased, likely due to perioperative fluids. Rales right lung base; will check chest x-ray. Discussed with Dr. Sandy and family who were present at bedside Objective Vital Signs - Last 8 Hours Temp Pulse Resp BP Pulse Ox 08/16/17 11:15 98.1 F 71 20 169/82 96 08/16/17 07:07 97.9 F 63 18 137/66 95 Intake and Output 08/15/17 08/16/17 08/16/17 23:59 07:59 15:59 Intake Total 1380 / 1380 0 / 0 Output Total 800 / 800 0 / 0 Balance 580 / 580 0 / 0 Intake: IV Fluids 1000 / 1000 Lactated Ringers 1,000 ML @ 75 1000 / 1000 mls/hr IVC .[id number] ANN Rx#: [id number] Oral 380 / 380 0 / 0 Output: Urine 800 / 800 0 / 0 Other: Meal Breakfast Weight 78.9 kg Blood Glucose* 227 170 Patient Weight 08/16/17 23:59 Weight 78.9 kg - Labs 08/16/17 05:56 08/16/17 05:56 Diabetes panel 08/16/17 Range/Units 05:56 Sodium 143 (136-145) mEq/L Potassium 3.7 (3.5-5.1) mEq/L Chloride 112 H (98-107) mEq/L Carbon Dioxide 23 (23-29) mEq/L BUN 18 (8-23) mg/dL Creatinine 0.86 (0.70-1.30) mg/dL Glucose 199 H (70-105) mg/dL Calcium 9.0 (8.6-10.3) mg/dL AST 88 H (13-39) Units/L ALT 377 H (7-52) Units/L Alkaline Phosphatase 156 H (34-104) Units/L Albumin 3.1 L (3.5-5.7) g/dL Calcium panel 08/16/17 Range/Units 05:56 Calcium 9.0 (8.6-10.3) mg/dL Albumin 3.1 L (3.5-5.7) g/dL Pituitary panel 08/16/17 Range/Units 05:56 Sodium 143 (136-145) mEq/L Potassium 3.7 (3.5-5.1) mEq/L Chloride 112 H (98-107) mEq/L Carbon Dioxide 23 (23-29) mEq/L BUN 18 (8-23) mg/dL Creatinine 0.86 (0.70-1.30) mg/dL Glucose 199 H (70-105) mg/dL Calcium 9.0 (8.6-10.3) mg/dL Adrenal panel 08/16/17 Range/Units 05:56 Sodium 143 (136-145) mEq/L Potassium 3.7 (3.5-5.1) mEq/L Chloride 112 H (98-107) mEq/L Carbon Dioxide 23 (23-29) mEq/L BUN 18 (8-23) mg/dL Creatinine 0.86 (0.70-1.30) mg/dL Glucose 199 H (70-105) mg/dL Calcium 9.0 (8.6-10.3) mg/dL Total Bilirubin 0.5 (0.3-1.0) mg/dL AST 88 H (13-39) Units/L ALT 377 H (7-52) Units/L Alkaline Phosphatase 156 H (34-104) Units/L Albumin 3.1 L (3.5-5.7) g/dL - VTE Documentation of Mechanical Device: Intermittent pneumatic compression device Consult Discharge Plan - Plan Referrals: Judy Morgan, [employer] [Primary Care Provider] -
[2017-08-17] MEDS: *HR* OxyCODONE/APAP 5/325 TABLET PO PRN (03:48)
[2017-08-17 05:44] LABS: Basophils % 0.1 %; Eosinophils # 0.2 K/mcL (0.0-0.6); Eosinophils % 2.6 %; Hematocrit 25.6 % (37.5-50.1); Hemoglobin 8.2 g/dL (12.9-16.9); Immature Granulocytes % 0.5 % (0-4); Lymphocytes % 23.2 %; Mean Corpuscular Hemoglobin 29.8 pg (28.0-33.3); Mean Corpuscular Volume 93.1 fL (83.0-100.0); Mean Platelet Volume 10.8 fL (9.4-12.4); Monocytes # 0.8 K/mcL (0.0-1.3); Monocytes % 9.8 %; Neutrophils # 5.5 K/mcL (1.6-8.9); Platelet Count 142 K/mcL (140-400); Red Blood Count 2.75 M/mcL (4.19-5.50); Red Cell Distribution Width 14.5 % (11.5-14.5); Segmented Neutrophils % 63.8 %
[2017-08-17 07:27] VITALS: BP 119/49
[2017-08-17] MEDS: Insulin LISPRO 300 UNITS/3 ML VIAL SQ SCH ×2 (07:38→12:07)
[2017-08-17] MEDS: 0.9 % Sodium Chloride 1,000 ML IVC SCH ×2 (07:41→07:42)
[2017-08-17] MEDS: Multivit/Ca/Min/Fe/FA 1 TAB TABLET PO SCH (08:39)
[2017-08-17] MEDS: Aspirin 81 MG TAB.CHEW PO SCH (08:40)
[2017-08-17] MEDS: Finasteride 5 MG TABLET PO SCH (08:40)
[2017-08-17] MEDS: Gabapentin 300 MG CAPSULE PO SCH (08:40)
--- NOTE | 2017-08-17 10:43 | Discharge Summary ---
- NOTES TO OUTPATIENT PROVIDER Notes to Outpatient Provider: Follow up with PCP for EGD/Colonoscopy Orders not resulted at time of discharge: Pending orders 08/15/17 14:44 Surgical Pathology [PTH] Routine Date of Encounter: 08/17/17 Time of Encounter: 10:40 - Discharge Diagnosis (1) Acute cholecystitis Priority: Primary Status: Acute Assessment and Plan: 81 year old male with a history of CAD s/p CABG with 5 stents, ICM s/p AICD, diabetes, hyperlipidemia, CKD, DM who presents with complaints of nausea or vomiting for about a couple of days or so. Patient is also reporting weakness. He does have epigastric pain and right upper quadrant pain. He was assessed with acute cholecystitis based on CT and gall bladder ultrasound and surgery was consulted. He was also noted to have acute kidney injury and elevated LFTs likely 2/2 to dehydration. he was hydrated with Iv fluids and had a laparascopic cholecystectomy done. Tolerated procedure well with no acute complications. His electrolyte abnormalities also resolved and he was discharged in a stable condition (2) HTN (hypertension) Priority: Secondary Status: Chronic Qualifiers: Hypertension type: essential hypertension Qualified Code(s): I10 - Essential (primary) hypertension (3) CKD (chronic kidney disease) stage 3, GFR 30-59 ml/min Priority: Secondary Status: Chronic (4) CAD (coronary artery disease) Priority: Secondary Status: Chronic Qualifiers: Coronary Disease-Associated Artery/Lesion type: bypass graft, autologous vein Associated angina: without angina Qualified Code(s): I25.810 - Atherosclerosis of coronary artery bypass graft(s) without angina pectoris (5) Ischemic cardiomyopathy Priority: Secondary Status: Acute (6) Dysphagia Priority: Secondary Status: Acute Qualifiers: Dysphagia type: unspecified Qualified Code(s): R13.10 - Dysphagia, unspecified Hospital course: Mr. Clayton is a 81 year old male - Time Spent with Patient Total time spent providing and/or coordinating discharge services: - Discharge Medications Home Medications: ALPRAZolam [Xanax 0.25 MG Tablet] 0.25 mg PO BID PRN 10/19/15 [History] B2/Vits A,C,E/Lut/Zeaxanth/Min [Icaps Tablet] 1 each PO DAILY 10/19/15 [History] Carvedilol 12.5 mg PO BID 10/19/15 [History] Cholecalciferol (D-3) [Vitamin D] 2,000 unit PO DAILY 10/19/15 [History] Clopidogrel [Plavix] 75 mg PO DAILY 10/19/15 [History] Clotrimazole/Betamethasone Dip [Clotrimazole-Betamethasone Lot] 1 appl TP BID [History] Cyanocobalamin (B-12) [Vitamin B12] 1,000 mcg IM QMONTH 10/19/15 [History] Diclofenac Sodium [Voltaren] 1 appl TP BID 10/19/15 [History] Docusate [Colace] 100 mg PO DAILY PRN 10/19/15 [History] Ezetimibe [Zetia] 10 mg PO DAILY 10/19/15 [History] Ferrous Sulfate 325 mg PO BIDWM 10/19/15 [History] Finasteride [Proscar] 5 mg PO DAILY 10/19/15 [History] Furosemide [Lasix] 40 mg PO DAILY PRN 10/19/15 [History] Gabapentin [Neurontin] 300 mg PO BID 10/19/15 [History] Gluc Tidwell/Chondro Tidwell A/Vit C/Mn [Glucosamine Chondroitin Tab] 1 each PO DAILY 11/25 [History] Loratadine [Claritin] 10 mg PO DAILY 10/19/15 [History] Metoclopramide [Reglan] 10 mg PO DAILY 10/19/15 [History] Multivitamin [Multi-Day Vitamins] 1 each PO DAILY 10/19/15 [History] Nitroglycerin [Nitrostat] 0.4 mg SL AD PRN 10/19/15 [History] Oxycodone HCl/Acetaminophen [Percocet 5-325 mg Tablet] 1 each PO Q6H PRN [History] Pantoprazole Sodium [Protonix] 40 mg PO DAILY 10/19/15 [History] Potassium Chloride [K-Tab ER] 20 meq PO BID 10/19/15 [History] Pravastatin Sodium [Pravachol] 40 mg PO DAILY 10/19/15 [History] Tamsulosin [Flomax] 0.4 mg PO DAILY 10/19/15 [History] metFORMIN [Glucophage] 500 mg PO BIDWM 10/19/15 [History] Aspirin 81 mg PO DAILY #30 tab.chew 10/22/15 [Rx] Allergies/Adverse Reactions: 3 Allergy/AdvReac Type Severity Reaction Status Date / Time levofloxacin [From Levaquin] Allergy See Verified 10/19/15 12:24 Comments lisinopril Allergy See Verified 10/19/15 12:24 Comments atorvastatin [From Lipitor] AdvReac See Verified 10/19/15 12:24 Comments simvastatin [From Zocor] AdvReac See Verified 08/15/17 08:38 Comments Date of admission: 08/14/17 02:55 Primary care physician: Judy Morgan CNP Consults: 08/16/17 11:42 Consult to Speech Therapy [CONS] Routine Comment: Evaluate, develop and implement POC Reason for Consult: dysphagia Call Completed: Yes - Constitutional Vitals: Temp Pulse Resp BP Pulse Ox 98.9 F 72 17 119/49 94 08/17/17 07:20 08/17/17 07:20 08/17/17 07:20 08/17/17 07:20 08/17/17 07:20 - Patient Status Disposition: Home, Self-Care Condition: Fair - Discharge Instructions Follow Up With: Judy Morgan CNP [Primary Care Provider] - 08/24/17 10:00 am (Please follow up as schedule...) - VTE Documentation of Mechanical Device: Intermittent pneumatic compression device
--- NOTE | 2017-08-17 11:02 | General Surgery Progress Note ---
Date of Encounter: 08/17/17 Time of Encounter: 10:45 Subjective Narrative: General Surgery - POD #2 Patient feeling well; prior complaints of right shoulder and chest pain resolved. Afebrile, maximum temperature 99.1, pulse 72, respirations 17, blood pressure 119/49. Lungs: Rales right base otherwise clear; chest x-ray: Small amount of free intraperitoneal air consistent with recent laparoscopic surgery; streaky opacities bilateral lung bases consistent with atelectasis. Abdomen: Soft, nontender with resolution of the right-sided abdominal pain. Active bowel sounds. Port sites intact, clean and dry. Laboratories: White count 8.5 with normal differential; hemoglobin has diminished 8.2 with hematocrit 25.6; likely due to preop and perioperative fluids. Operative pathology pending Impression: Acceptable postoperative status; surgically ready for discharge home. Plan: Outpatient patient follow-up in the office, 08/24/17. Patient indicates he has Percocet at home - I have recommended over-the -counter medications such as Tylenol, Motrin, Advil or Aleve for mild to moderate pain reserving the Percocet for pain not relieved by over -the-counter medications Patient may shower, wash incisions with soap and water Diabetic diet Activity as tolerated; lifting limited to less than 20 pounds. Objective Vital Signs - Last 8 Hours Temp Pulse Resp BP Pulse Ox 08/17/17 07:20 98.9 F 72 17 119/49 94 08/17/17 04:26 99.1 F 62 15 115/51 93 Intake and Output 08/16/17 08/17/17 08/17/17 23:59 07:59 15:59 Intake Total 200 / 200 Output Total 400 / 400 Balance -200 / -200 Intake: Oral 200 / 200 Output: Urine 400 / 400 Other: Meal Dinner Breakfast Percent of Meal Consumed 50% 100% # Voids 1 1 # Bowel Movements 1 Weight 77.927 kg Blood Glucose* 223 126 Patient Weight 08/17/17 23:59 Weight 77.927 kg - Labs 08/17/17 04:53 08/16/17 05:56 - VTE Documentation of Mechanical Device: Intermittent pneumatic compression device Consult Discharge Plan - Plan Referrals: Judy Morgan, [employer] [Primary Care Provider] -
== END 2017-08-17 13:51 | disposition home or self-care (01) | DRG 418 ==
LOC: EMEROO 21:59 → 2ANU 08-14 02:55
PROVIDERS: ADMIT Internal Medicine; ATTEND Internal Medicine

== ENCOUNTER 2018-11-24 17:04 | Inpatient (IN) ==
[2018-11-24 17:48] LABS: Basophils % 0.2 %; Eosinophils % 0.1 %; Hematocrit 32.9 % (37.5-50.1); Hemoglobin 10.4 g/dL (12.9-16.9); Immature Granulocytes % 0.4 % (0-4); Lymphocytes # 1.7 K/mcL (0.6-4.6); Lymphocytes % 12.7 %; Mean Corpuscular HGB Conc 31.6 g/dL (31.6-35.5); Mean Corpuscular Hemoglobin 30.2 pg (28.0-33.3); Mean Corpuscular Volume 95.6 fL (83.0-100.0); Mean Platelet Volume 10.3 fL (9.4-12.4); Monocytes # 0.9 K/mcL (0.0-1.3); Monocytes % 6.4 %; Platelet Count 161 K/mcL (140-400); Red Blood Count 3.44 M/mcL (4.19-5.50); Red Cell Distribution Width 14.7 % (11.5-14.5); Segmented Neutrophils % 80.2 %; White Blood Count 13.7 K/mcL (4.3-11.1)
[2018-11-24 17:54] LABS: INR 2.3; Prothrombin Time 26.6 Seconds (9.4-12.1)
[2018-11-24 17:57] LABS: Activated Partial Thrombo Time 47.1 Seconds (26.0-36.0)
--- NOTE | 2018-11-24 18:05 | Emergency Department Note ---
Disposition Clinical Impression: Pneumonia Qualifiers: Pneumonia type: due to unspecified organism Laterality: right Lung location: middle lobe of lung Qualified Code(s): J18.1 - Lobar pneumonia, unspecified organism Hypotension Qualifiers: Hypotension type: unspecified hypotension type Qualified Code(s): I95.9 - Hypotension, unspecified Disposition: Admitted As Inpatient Condition: Fair Time of Disposition: 20:29 Altered Mental Status HPI - General Chief Complaint: ED Altered Mental Status Stated Complaint: Multiple complaints Time Seen by Provider: 11/24/18 17:10 Source: patient Mode of arrival: ambulatory Limitations: altered mental status Nursing Notes Reviewed: Yes Vital Signs Reviewed: Yes - History of Present Illness HPI Narrative: Patient is an 83-year-old male presenting with altered mental status. Patient has history of CAD status post CABG, ICD placement and pacemaker, patient has hypertension and hyperlipidemia and abnormal rhythm currently on Coumadin. Patient presents with her daughter who does not know full extent of medical history or recent medical admissions, patient does not recall further information. Per the daughter, he has had a total of 4 days of altered mentation, where he has had generalized weakness, chills and weakness. Patient states that he just has generalized weakness all over, no dysuria, hematuria or blood per rectum. He denies chest pain or shortness of breath. He denies abdominal pain, nausea or vomiting. He does state that approximately 4-5 days ago, he was in his home and had mechanical fall, hitting his head, without loss of consciousness he was not seen during this initial event. He does state that he does feel somewhat confused and very tired throughout the day. He has been sleeping significantly more than he usually does. He is currently stopped his Coumadin as he is supposed to have a procedure performed next week for lumbar p ain he denies recent admission that he is aware. I was able to speak with the who does state the patient has had a significant cough in the past few days with green production. She states he has been chilled but has not noticed any fevers. - Related Data Home Medications Medication Instructions Recorded Confirmed B2/Vits A,C,E/Lut/Zeaxanth/Min 1 each PO DAILY 10/19/15 11/24/18 [Icaps Tablet] Carvedilol 12.5 mg PO BID 10/19/15 11/24/18 Ezetimibe [Zetia] 10 mg PO DAILY 10/19/15 11/24/18 Finasteride [Proscar] 5 mg PO DAILY 10/19/15 11/24/18 Furosemide [Lasix] 40 mg PO DAILY PRN 10/19/15 11/24/18 Gabapentin [Neurontin] 300 mg PO BID 10/19/15 11/24/18 Loratadine [Claritin] 10 mg PO DAILY 10/19/15 11/24/18 Nitroglycerin [Nitrostat] 0.4 mg SL PRN PRN 10/19/15 11/24/18 Oxycodone HCl/Acetaminophen 1 each PO Q6H PRN 10/19/15 11/24/18 [Percocet 5-325 mg Tablet] Pantoprazole Sodium [Protonix] 40 mg PO DAILY 10/19/15 11/24/18 Pravastatin Sodium [Pravachol] 40 mg PO DAILY 10/19/15 11/24/18 Tamsulosin [Flomax] 0.4 mg PO HS 10/19/15 11/24/18 metFORMIN [Glucophage] 500 mg PO DAILY 10/19/15 11/24/18 Iron Chews 06/12/18 Potassium Chloride [Klor-Con] 20 meq PO BID 06/12/18 11/24/18 Sacubitril/Valsartan 24/26 MG 2 tab PO DAILY 06/12/18 11/24/18 [Entresto 24 mg-26 mg Tablet] Ferrous Sulfate [Iron] 325 mg PO BID 11/24/18 11/24/18 Previous Rx's Medication Instructions Recorded Aspirin 81 mg PO DAILY #30 tab.chew 10/22/15 Allergies Allergy/AdvReac Type Severity Reaction Status Date / Time levofloxacin [From Levaquin] Allergy See Verified 06/12/18 16:47 Comments lisinopril Allergy See Verified 06/12/18 16:47 Comments metoclopramide Allergy Confusion Verified 09/17/18 14:28 atorvastatin [From Lipitor] AdvReac See Verified 06/12/18 16:47 Comments simvastatin [From Zocor] AdvReac See Verified 06/12/18 16:47 Comments All systems ED: reviewed and negative except as stated. Review of Systems: As Per HPI Constitutional: Reports: chills, weakness. Denies: fever Cardiovascular: Reports: dyspnea on exertion. Denies: chest pain, palpitations, edema Respiratory: Reports: cough, dyspnea Gastrointestinal: Denies: abdominal pain, nausea, vomiting, hematemesis, melena, hematochezia Genitourinary: Denies: urgency, dysuria, frequency Musculoskeletal: Reports: back pain Neurological: Reports: weakness. Denies: headache, numbness, paresthesias, confusion Endocrine: Reports: fatigue Hematological/Lymphatic: Reports: easy bleeding Past Medical History - Past Medical History Medical history: Reports: coronary artery disease, diabetes, hypertension, myocardial infarction, renal disease, other Surgical history: Reports: angioplasty/stent, coronary bypass (CABG), LE Bypass, orthopedic, other, pacemaker/AICD Psychiatric history: Reports: no psych history - Social History Smoking Status: Unknown if ever smoked Smokeless Tobacco Status: No Alcohol use: Reports: none Drug use: Reports: none Physical Exam - General Limitations: other General appearance: alert - Head Head exam: atraumatic, normocephalic, normal inspection - Eye Eye exam: Present: normal appearance, PERRL, EOMI - ENT ENT exam: mucous membranes dry - Neck Neck exam: Present: trachea midline - Chest Chest inspection: Present: normal inspection, symmetric chest wall rise - Respiratory Respiratory exam: Present: other (Patient with crackles to the right base, no wheezing is heard). Absent: accessory muscle use - Cardiovascular Cardiovascular exam: Present: regular rate, normal rhythm, normal heart sounds - Abdominal Exam Abdominal exam: Present: soft, Non-Tender. Absent: tenderness, distention, guarding, rebound, rigidity - Extremities Exam Extremities exam: Present: normal inspection, full ROM. Absent: tenderness, pedal edema - Expanded Lower Extremity Exam Neurovascular/Tendon exam: Present: normal capillary refill. Absent: pulse deficit, motor deficit, sensory deficit - Neurological Exam Neurological exam: Present: alert - Expanded Neurological Exam Patient oriented to: Present: person, place, time Speech: Present: fluid speech Cranial nerves: EOM function (II, III, IV, ): Normal, facial sensation (V): Normal, facial palsy (VII): Normal, spinal accessory function (XI): Normal, tongue deviation (XII): Normal Cerebellar function: finger to nose: Normal Motor strength - LUE: 5/5 Motor strength - RUE: 5/5 Motor strength - LLE: 5/5 Motor strength - RLE: 5/5 Sensory exam upper extremity: light touch: Normal Sensory exam lower extremity: light touch: Normal Coma Scale Eye Opening: Spontaneous Coma Scale Motor Response: Obeys Commands Coma Scale Verbal Response: Confused Coma Scale Total: 14 - Psychiatric Psychiatric exam: Present: normal affect - Skin Skin exam: Present: warm, dry, pallor. Absent: rash, cyanosis Course Vital Signs Temperature 98.0 F 11/24/18 17:08 Pulse Rate 67 11/24/18 17:08 Respiratory Rate 18 11/24/18 17:08 Blood Pressure 81/52 11/24/18 17:08 O2 Sat by Pulse Oximetry 95 11/24/18 17:08 Temperature 98.0 F 11/24/18 17:36 Pulse Rate 74 11/24/18 20:00 Respiratory Rate 18 11/24/18 20:00 Blood Pressure 108/64 11/24/18 20:00 O2 Sat by Pulse Oximetry 100 11/24/18 20:00 Oxygen Delivery Oxygen Delivery Nasal Cannula Procedures - Central Line Placement Right IJ Central Line Inserted*: Yes Central Line Catheter Replacement*: No Central Line Insertion: emergent ( consented over the phone) Consent Obtained: verbal consent, written consent Procedural Pause: verify patient name and date of , timeout performed per policy, carlitos and assess the site, assemble equipment and verify supplies, perform hand hygiene Patient Placed on Monitor/Pulse Ox: Yes During the Procedure: clinician is wearing sterile gloves, cap, mask,& gown during insertion, sterile field and sterile technique are maintained, patient's face is covered with drape or mask and wearing a cap, everyone in room is wearing a mask Central Line Prep: Chlorhexidine scrub Prep the Procedure Site: apply chloraprep to the skin using a back and forth scrubbing motion Local Anesthetic: lidocaine 1% Amount of anesthesia used (mL): 3 Ultrasound Used for Placement: Yes Central Line Lumen Inserted: triple Post Procedure: sutured in place, good blood return, all ports aspirated, flushed, capped, sterile dressing applied, guide wire removed and visualized, dressing is dated Post Procedure X-Ray: no pneumothorax seen Patient Tolerated Procedure: well, no complications Complications: none Altered Mental Status - MDM Narrative Medical decision making narrative: Patient is an 83-year-old male who is presenting with altered mental status. He has multiple comorbidities including CAD status post CABG, pacemaker and ICD placement, hypertension, hyperlipidemia. Patient on arrival is hypotensive, af ebrile and not tachycardic. He was initially given a liter of fluids, we will hold on significant fluid hydration for fear to put the patient in pulmonary edema. On examination, patient is alert but does fall asleep quickly, he is easily arousable, somewhat confused on conversation with a GCS of 14, NIH of 0. He does follow commands when prompted. Patient does have some crackles to the right base, also known history of urinary tract infections, suspect this is most likely infectious etiology. With this in mind, chest x-ray was performed, basic laboratory work including CBC, BMP, troponin and urinalysis as well. Patient was given a total of 2 L normal saline, patient's blood pressure was not responsive and remained hypotensive with a map around 60-65. The decision was made to place a central line secondary to not be able to give before 30/mL kilo bolus secondary to congestive heart failure with ICD placement, he should not most likely with significant decreased ejection fraction, central line was placed without complications. Post x-ray shows appropriate placement. No sign of pneumothorax. Patient had cleared also taken bilaterally following the central line placement. CT that shows no acute intracranial changes, CT of the cervical spine shows no acute fracture. Chest x-ray does show concern for right lower lobe opacification, for this patient was started on antibiotics. Blood cultures were already drawn. Following central line placement, patient was started on l evophed after initial starting of this medication, patient is now much more alert, oriented, able to stay awake much easier, blood pressure is now 115 systolic. Patient said remains at bedside, agrees with disposition of admission. Patient also agrees with admission at this time. Laboratory work shows slight leukocytosis, otherwise no appreciable elevation in serum creatinine from last visit, hemoglobin is stable, no sign of urinary tract infection. Troponin within normal limits. Patient will be admitted further observation and treatment. Amylase agreeable. - Medical Records Medical records reviewed: Yes I reviewed the patient's medical records. - Lab Data Lab results reviewed: Yes I reviewed the patient's lab results. Lab results narrative: Cervical Spine CT 11/24/18 18:43 IMPRESSION: No acute abnormality of the cervical spine. Mild degenerative changes lower cervical spine. Calcifications involving bilateral carotid vasculature reflect calcific atherosclerosis. D/ / Tejas Machado / Tejas Machado Interpreting Provider: Tejas Machado Head CT 11/24/18 18:43 IMPRESSION: No acute intracranial abnormality. Diffuse atrophic changes with findings suggesting chronic microvascular ischemia D/ / Aman Moreno MD / Aman Moreno MD Interpreting Provider: Aman Moreno MD Result diagrams: 11/24/18 17:31 11/24/18 17:31 Lab Results 11/24/18 11/24/18 11/24/18 Range/Units 17:31 17:31 17:31 WBC 13.7 H (4.3-11.1) K/mcL RBC 3.44 L (4.19-5.50) M/mcL Hgb 10.4 L (12.9-16.9) g/dL Hct 32.9 L (37.5-50.1) % MCV 95.6 (83.0-100.0) fL MCH 30.2 (28.0-33.3) pg MCHC 31.6 (31.6-35.5) g/dL RDW 14.7 H (11.5-14.5) % Plt Count 161 (140-400) K/mcL MPV 10.3 (9.4-12.4) fL Immature Gran % 0.4 (0-4) % Seg Neutrophils % 80.2 % Lymphocytes % 12.7 % Monocytes % 6.4 % Eosinophils % 0.1 % Basophils % 0.2 % Neutrophils # 11.0 H (1.6-8.9) K/mcL Lymphocytes # 1.7 (0.6-4.6) K/mcL Monocytes # 0.9 (0.0-1.3) K/mcL Eosinophils # 0.0 (0.0-0.6) K/mcL Basophils # 0.0 (0.0-0.2) K/mcL PT 26.6 H (9.4-12.1) Seconds INR 2.3 APTT 47.1 H (26.0-36.0) Seconds Sodium 143 (136-145) mEq/L Potassium 4.5 (3.5-5.1) mEq/L Chloride 110 H (98-107) mEq/L Carbon Dioxide 23 (23-29) mEq/L BUN 52 H (8-23) mg/dL Creatinine 1.78 H (0.70-1.30) mg/dL Est GFR ( Amer) 44 L (> 60) Est GFR (Non-Af Amer) 37 L (> 60) BUN/Creatinine Ratio 29 H (6-26) Glucose 124 H (70-105) mg/dL POC Glucose (70-99) mg/dL Calculated Osmolality 311 H (280-300) Lactic Acid (0.5-2.2) mmol/L Calcium 9.2 (8.6-10.3) mg/dL Phosphorus 4.2 (2.7-4.5) mg/dL Magnesium 2.1 (1.6-2.6) mg/dL Total Bilirubin 0.4 (0.3-1.0) mg/dL Direct Bilirubin 0.1 (0.0-0.2) mg/dL Indirect Bilirubin 0.3 (0.0-1.2) mg/dL AST 10 L (13-39) Units/L ALT 9 (7-52) Units/L Alkaline Phosphatase 88 (34-104) Units/L Troponin I < 0.03 (< 0.04) ng/mL B-Natriuretic Peptide (Less than 100) pg/mL Serum Total Protein 6.4 (6.4-8.9) g/dL Albumin 3.6 (3.5-5.7) g/dL Globulin 2.8 (2.4-3.5) g/dL Albumin/Globulin Ratio 1.3 (1.1-2.2) Urine Color (Yellow) Urine Clarity (Clear) Urine pH (5.0-8.0) pH Units Ur Specific Lovejoy (1.010-1.025) Urine Protein (Neg-Trace) mg/dL Urine Glucose (UA) (Normal) mg/dL Urine Ketones (Negative) mg/dL Urine Blood (Negative) Urine Nitrite (Negative) Urine Bilirubin (Negative) Urine Urobilinogen (Normal) mg/dL Ur Leukocyte Esterase (Negative) Ur Culture Indicated? (NO) 11/24/18 11/24/18 11/24/18 Range/Units 17:31 17:31 17:41 WBC (4.3-11.1) K/mcL RBC (4.19-5.50) M/mcL Hgb (12.9-16.9) g/dL Hct (37.5-50.1) % MCV (83.0-100.0) fL MCH (28.0-33.3) pg MCHC (31.6-35.5) g/dL RDW (11.5-14.5) % Plt Count (140-400) K/mcL MPV (9.4-12.4) fL Immature Gran % (0-4) % Seg Neutrophils % % Lymphocytes % % Monocytes % % Eosinophils % % Basophils % % Neutrophils # (1.6-8.9) K/mcL Lymphocytes # (0.6-4.6) K/mcL Monocytes # (0.0-1.3) K/mcL Eosinophils # (0.0-0.6) K/mcL Basophils # (0.0-0.2) K/mcL PT (9.4-12.1) Seconds INR APTT (26.0-36.0) Seconds Sodium (136-145) mEq/L Potassium (3.5-5.1) mEq/L Chloride (98-107) mEq/L Carbon Dioxide (23-29) mEq/L BUN (8-23) mg/dL Creatinine (0.70-1.30) mg/dL Est GFR ( Amer) (> 60) Est GFR (Non-Af Amer) (> 60) BUN/Creatinine Ratio (6-26) Glucose (70-105) mg/dL POC Glucose 123 H (70-99) mg/dL Calculated Osmolality (280-300) Lactic Acid 1.6 (0.5-2.2) mmol/L Calcium (8.6-10.3) mg/dL Phosphorus (2.7-4.5) mg/dL Magnesium (1.6-2.6) mg/dL Total Bilirubin (0.3-1.0) mg/dL Direct Bilirubin (0.0-0.2) mg/dL Indirect Bilirubin (0.0-1.2) mg/dL AST (13-39) Units/L ALT (7-52) Units/L Alkaline Phosphatase (34-104) Units/L Troponin I (< 0.04) ng/mL B-Natriuretic Peptide 302 H (Less than 100) pg/mL Serum Total Protein (6.4-8.9) g/dL Albumin (3.5-5.7) g/dL Globulin (2.4-3.5) g/dL Albumin/Globulin Ratio (1.1-2.2) Urine Color (Yellow) Urine Clarity (Clear) Urine pH (5.0-8.0) pH Units Ur Specific Lovejoy (1.010-1.025) Urine Protein (Neg-Trace) mg/dL Urine Glucose (UA) (Normal) mg/dL Urine Ketones (Negative) mg/dL Urine Blood (Negative) Urine Nitrite (Negative) Urine Bilirubin (Negative) Urine Urobilinogen (Normal) mg/dL Ur Leukocyte Esterase (Negative) Ur Culture Indicated? (NO) 11/24/18 Range/Units 19:40 WBC (4.3-11.1) K/mcL RBC (4.19-5.50) M/mcL Hgb (12.9-16.9) g/dL Hct (37.5-50.1) % MCV (83.0-100.0) fL MCH (28.0-33.3) pg MCHC (31.6-35.5) g/dL RDW (11.5-14.5) % Plt Count (140-400) K/mcL MPV (9.4-12.4) fL Immature Gran % (0-4) % Seg Neutrophils % % Lymphocytes % % Monocytes % % Eosinophils % % Basophils % % Neutrophils # (1.6-8.9) K/mcL Lymphocytes # (0.6-4.6) K/mcL Monocytes # (0.0-1.3) K/mcL Eosinophils # (0.0-0.6) K/mcL Basophils # (0.0-0.2) K/mcL PT (9.4-12.1) Seconds INR APTT (26.0-36.0) Seconds Sodium (136-145) mEq/L Potassium (3.5-5.1) mEq/L Chloride (98-107) mEq/L Carbon Dioxide (23-29) mEq/L BUN (8-23) mg/dL Creatinine (0.70-1.30) mg/dL Est GFR ( Amer) (> 60) Est GFR (Non-Af Amer) (> 60) BUN/Creatinine Ratio (6-26) Glucose (70-105) mg/dL POC Glucose (70-99) mg/dL Calculated Osmolality (280-300) Lactic Acid (0.5-2.2) mmol/L Calcium (8.6-10.3) mg/dL Phosphorus (2.7-4.5) mg/dL Magnesium (1.6-2.6) mg/dL Total Bilirubin (0.3-1.0) mg/dL Direct Bilirubin (0.0-0.2) mg/dL Indirect Bilirubin (0.0-1.2) mg/dL AST (13-39) Units/L ALT (7-52) Units/L Alkaline Phosphatase (34-104) Units/L Troponin I (< 0.04) ng/mL B-Natriuretic Peptide (Less than 100) pg/mL Serum Total Protein (6.4-8.9) g/dL Albumin (3.5-5.7) g/dL Globulin (2.4-3.5) g/dL Albumin/Globulin Ratio (1.1-2.2) Urine Color Yellow (Yellow) Urine Clarity Clear (Clear) Urine pH 5.5 (5.0-8.0) pH Units Ur Specific Lovejoy 1.017 (1.010-1.025) Urine Protein Negative (Neg-Trace) mg/dL Urine Glucose (UA) Normal (Normal) mg/dL Urine Ketones Negative (Negative) mg/dL Urine Blood Negative (Negative) Urine Nitrite Negative (Negative) Urine Bilirubin Negative (Negative) Urine Urobilinogen Normal (Normal) mg/dL Ur Leukocyte Esterase Negative (Negative) Ur Culture Indicated? NO (NO) - Radiology Data Radiology results reviewed: Yes I reviewed the patient's radiology results. Cervical Spine CT 11/24/18 18:43 IMPRESSION: No acute abnormality of the cervical spine. Mild degenerative changes lower cervical spine. Calcifications involving bilateral carotid vasculature reflect calcific atherosclerosis. D/ / Tejas Machado / Tejas Machado Interpreting Provider: Tejas Machado Head CT 11/24/18 18:43 IMPRESSION: No acute intracranial abnormality. Diffuse atrophic changes with findings suggesting chronic microvascular ischemia D/ / Aman Moreno MD / Aman Moreno MD Interpreting Provider: Aman Moreno MD - EKG Data EKG attestation: Yes I reviewed and interpreted this EKG. EKG results narrative: EKG performed which shows ventricular rate of 68, regular rhythm, normal axis, there is significant scattered baseline but no appreciable ST segment elevation, depression, there is a PVC noted. TPA Checklist - LKW: 3-4.5 hrs Add. Warnings/Precautions Patient/family understanding: The patient/family members have been counseled and understood the risk, benefit, and alternatives of treatment.
[2018-11-24] MEDS: 0.9 % Sodium Chloride 1,000 ML IVC SCH ×2 (18:08→19:30)
[2018-11-24 18:11] LABS: Alanine Aminotransferase 9 Units/L (7-52); Albumin 3.6 g/dL (3.5-5.7); Albumin/Globulin Ratio 1.3 (1.1-2.2); Alkaline Phosphatase 88 Units/L (34-104); Aspartate Amino Transferase 10 Units/L (13-39); BUN/Creatinine Ratio 29 (6-26); Bilirubin,Direct 0.1 mg/dL (0.0-0.2); Bilirubin,Indirect 0.3 mg/dL (0.0-1.2); Bilirubin,Total 0.4 mg/dL (0.3-1.0); Blood Urea Nitrogen 52 mg/dL (8-23); Calcium 9.2 mg/dL (8.6-10.3); Carbon Dioxide 23 mEq/L (23-29); Chloride 110 mEq/L (98-107); Globulin 2.8 g/dL (2.4-3.5); Glucose 124 mg/dL (70-105); Magnesium 2.1 mg/dL (1.6-2.6); Osmolality,Calculated 311 (280-300); Phosphorous 4.2 mg/dL (2.7-4.5); Potassium 4.5 mEq/L (3.5-5.1); Sodium 143 mEq/L (136-145); Total Protein 6.4 g/dL (6.4-8.9); Troponin I < 0.03 ng/mL (< 0.04); eGFR For African Americans 44 (> 60); eGFR For Non-African Americans 37 (> 60)
[2018-11-24] MEDS ORDERED: Isovue-370 500 ML BOTTLE IVP ONE (18:18)
[2018-11-24] MEDS ORDERED: Piperacillin/Tazobactam 3.375 GM in 0.9 % Sodium Chloride Mini Bag 100 ML IVPB ONE (18:19)
[2018-11-24] MEDS ORDERED: Azithromycin 500 MG in 0.9 % Sodium Chloride 250 ML IVPB ONE (18:25)
[2018-11-24] MEDS ORDERED: cefTRIAXone 1,000 MG in Water for inj. (sterile) 10 ML IVP ONE (18:25)
--- NOTE | 2018-11-24 18:43 | Emergency Department Note ---
Disposition Clinical Impression: Pneumonia Qualifiers: Pneumonia type: due to unspecified organism Laterality: right Lung location: middle lobe of lung Qualified Code(s): J18.1 - Lobar pneumonia, unspecified organism Hypotension Qualifiers: Hypotension type: unspecified hypotension type Qualified Code(s): I95.9 - Hypotension, unspecified Disposition: Admitted As Inpatient Condition: Fair Forms: ED Satisfaction Letter Time of Disposition: 18:44 General Adult HPI - General Chief complaint: ED Altered Mental Status Stated complaint: Multiple complaints Time Seen by Provider: 11/24/18 17:10 Source: patient - History of Present Illness Pain Scale: 0 - Related Data Home Medications Medication Instructions Recorded Confirmed B2/Vits A,C,E/Lut/Zeaxanth/Min 1 each PO DAILY 10/19/15 06/12/18 [Icaps Tablet] Carvedilol 12.5 mg PO BID 10/19/15 06/12/18 Cholecalciferol (D-3) [Vitamin D] 2 tab PO DAILY 10/19/15 08/14/17 Clotrimazole/Betamethasone Dip 1 appl TP BID 10/19/15 06/12/18 [Clotrimazole-Betamethasone Lot] Cyanocobalamin (B-12) [Vitamin B12] 1,000 mcg IM QMONTH 10/19/15 06/12/18 Diclofenac Sodium [Voltaren] 1 appl TP BID 10/19/15 06/12/18 Docusate [Colace] 100 mg PO DAILY PRN 10/19/15 06/12/18 Ezetimibe [Zetia] 10 mg PO DAILY 10/19/15 06/12/18 Ferrous Sulfate 325 mg PO BIDWM 10/19/15 08/14/17 Finasteride [Proscar] 5 mg PO DAILY 10/19/15 06/12/18 Furosemide [Lasix] 40 mg PO DAILY PRN 10/19/15 06/12/18 Gabapentin [Neurontin] 300 mg PO BID 10/19/15 06/12/18 Gluc Tidwell/Chondro Tidwell A/Vit C/Mn 500 mg PO DAILY 10/19/15 08/14/17 [Glucosamine Chondroitin Tab] Loratadine [Claritin] 10 mg PO DAILY 10/19/15 06/12/18 Multivitamin [Multi-Day Vitamins] 1 each PO DAILY 10/19/15 06/12/18 Nitroglycerin [Nitrostat] 0.4 mg SL PRN PRN 10/19/15 06/12/18 Oxycodone HCl/Acetaminophen 1 each PO Q6H PRN 10/19/15 06/12/18 [Percocet 5-325 mg Tablet] Pantoprazole Sodium [Protonix] 40 mg PO DAILY 10/19/15 06/12/18 Pravastatin Sodium [Pravachol] 40 mg PO DAILY 10/19/15 06/12/18 Tamsulosin [Flomax] 0.4 mg PO DAILY 10/19/15 06/12/18 metFORMIN [Glucophage] 500 mg PO BIDWM 10/19/15 06/12/18 Iron Chews 06/12/18 Potassium Chloride [Klor-Con] 20 meq PO 06/12/18 06/12/18 Sacubitril/Valsartan 24/26 MG 2 tab PO DAILY 06/12/18 06/12/18 [Entresto 24 mg-26 mg Tablet] Warfarin Sodium 1 mg PO DAILY 06/12/18 06/12/18 Warfarin Sodium 4 mg PO DAILY 06/12/18 06/12/18 Warfarin Sodium 5 mg PO DAILY 06/12/18 06/12/18 Warfarin [Coumadin] 2.5 mg PO DAILY 06/12/18 06/12/18 Previous Rx's Medication Instructions Recorded Aspirin 81 mg PO DAILY #30 tab.chew 10/22/15 Allergies Allergy/AdvReac Type Severity Reaction Status Date / Time levofloxacin [From Levaquin] Allergy See Verified 06/12/18 16:47 Comments lisinopril Allergy See Verified 06/12/18 16:47 Comments metoclopramide Allergy Confusion Verified 09/17/18 14:28 atorvastatin [From Lipitor] AdvReac See Verified 06/12/18 16:47 Comments simvastatin [From Zocor] AdvReac See Verified 06/12/18 16:47 Comments Past Medical History - Past Medical History Medical history: Reports: coronary artery disease, diabetes, hypertension, myocardial infarction, renal disease, other Surgical history: Reports: angioplasty/stent, coronary bypass (CABG), LE Bypass, orthopedic, other, pacemaker/AICD Psychiatric history: Reports: no psych history - Social History Smoking Status: Unknown if ever smoked Smokeless Tobacco Status: No Alcohol use: Reports: none Drug use: Reports: none Physical Exam - General General appearance: alert Course - Consultations Consultation #1: discussed case with Dr. Wolff and chan has been accepted to the medicine service. he will come see chan at bedside. Time: 18:51 Vital Signs Temperature 98.0 F 11/24/18 17:08 Pulse Rate 67 11/24/18 17:08 Respiratory Rate 18 11/24/18 17:08 Blood Pressure 81/52 11/24/18 17:08 O2 Sat by Pulse Oximetry 95 11/24/18 17:08 Temperature 98.0 F 11/24/18 17:36 Pulse Rate 64 11/24/18 18:08 Respiratory Rate 18 11/24/18 18:08 Blood Pressure 90/54 11/24/18 18:08 O2 Sat by Pulse Oximetry 97 11/24/18 18:08 Oxygen Delivery Oxygen Delivery Room Air Medical Decision Making - Lab Data Result diagrams: 11/24/18 17:31 11/24/18 17:31 Lab Results 11/24/18 11/24/18 11/24/18 Range/Units 17:31 17:31 17:31 WBC 13.7 H (4.3-11.1) K/mcL RBC 3.44 L (4.19-5.50) M/mcL Hgb 10.4 L (12.9-16.9) g/dL Hct 32.9 L (37.5-50.1) % MCV 95.6 (83.0-100.0) fL MCH 30.2 (28.0-33.3) pg MCHC 31.6 (31.6-35.5) g/dL RDW 14.7 H (11.5-14.5) % Plt Count 161 (140-400) K/mcL MPV 10.3 (9.4-12.4) fL Immature Gran % 0.4 (0-4) % Seg Neutrophils % 80.2 % Lymphocytes % 12.7 % Monocytes % 6.4 % Eosinophils % 0.1 % Basophils % 0.2 % Neutrophils # 11.0 H (1.6-8.9) K/mcL Lymphocytes # 1.7 (0.6-4.6) K/mcL Monocytes # 0.9 (0.0-1.3) K/mcL Eosinophils # 0.0 (0.0-0.6) K/mcL Basophils # 0.0 (0.0-0.2) K/mcL PT 26.6 H (9.4-12.1) Seconds INR 2.3 APTT 47.1 H (26.0-36.0) Seconds Sodium 143 (136-145) mEq/L Potassium 4.5 (3.5-5.1) mEq/L Chloride 110 H (98-107) mEq/L Carbon Dioxide 23 (23-29) mEq/L BUN 52 H (8-23) mg/dL Creatinine 1.78 H (0.70-1.30) mg/dL Est GFR ( Amer) 44 L (> 60) Est GFR (Non-Af Amer) 37 L (> 60) BUN/Creatinine Ratio 29 H (6-26) Glucose 124 H (70-105) mg/dL POC Glucose (70-99) mg/dL Calculated Osmolality 311 H (280-300) Lactic Acid (0.5-2.2) mmol/L Calcium 9.2 (8.6-10.3) mg/dL Phosphorus 4.2 (2.7-4.5) mg/dL Magnesium 2.1 (1.6-2.6) mg/dL Total Bilirubin 0.4 (0.3-1.0) mg/dL Direct Bilirubin 0.1 (0.0-0.2) mg/dL Indirect Bilirubin 0.3 (0.0-1.2) mg/dL AST 10 L (13-39) Units/L ALT 9 (7-52) Units/L Alkaline Phosphatase 88 (34-104) Units/L Troponin I < 0.03 (< 0.04) ng/mL B-Natriuretic Peptide (Less than 100) pg/mL Serum Total Protein 6.4 (6.4-8.9) g/dL Albumin 3.6 (3.5-5.7) g/dL Globulin 2.8 (2.4-3.5) g/dL Albumin/Globulin Ratio 1.3 (1.1-2.2) 11/24/18 11/24/18 11/24/18 Range/Units 17:31 17:31 17:41 WBC (4.3-11.1) K/mcL RBC (4.19-5.50) M/mcL Hgb (12.9-16.9) g/dL Hct (37.5-50.1) % MCV (83.0-100.0) fL MCH (28.0-33.3) pg MCHC (31.6-35.5) g/dL RDW (11.5-14.5) % Plt Count (140-400) K/mcL MPV (9.4-12.4) fL Immature Gran % (0-4) % Seg Neutrophils % % Lymphocytes % % Monocytes % % Eosinophils % % Basophils % % Neutrophils # (1.6-8.9) K/mcL Lymphocytes # (0.6-4.6) K/mcL Monocytes # (0.0-1.3) K/mcL Eosinophils # (0.0-0.6) K/mcL Basophils # (0.0-0.2) K/mcL PT (9.4-12.1) Seconds INR APTT (26.0-36.0) Seconds Sodium (136-145) mEq/L Potassium (3.5-5.1) mEq/L Chloride (98-107) mEq/L Carbon Dioxide (23-29) mEq/L BUN (8-23) mg/dL Creatinine (0.70-1.30) mg/dL Est GFR ( Amer) (> 60) Est GFR (Non-Af Amer) (> 60) BUN/Creatinine Ratio (6-26) Glucose (70-105) mg/dL POC Glucose 123 H (70-99) mg/dL Calculated Osmolality (280-300) Lactic Acid 1.6 (0.5-2.2) mmol/L Calcium (8.6-10.3) mg/dL Phosphorus (2.7-4.5) mg/dL Magnesium (1.6-2.6) mg/dL Total Bilirubin (0.3-1.0) mg/dL Direct Bilirubin (0.0-0.2) mg/dL Indirect Bilirubin (0.0-1.2) mg/dL AST (13-39) Units/L ALT (7-52) Units/L Alkaline Phosphatase (34-104) Units/L Troponin I (< 0.04) ng/mL B-Natriuretic Peptide 302 H (Less than 100) pg/mL Serum Total Protein (6.4-8.9) g/dL Albumin (3.5-5.7) g/dL Globulin (2.4-3.5) g/dL Albumin/Globulin Ratio (1.1-2.2) Attestation Statement - Attestation Attestation: I reviewed the residents documentation and agree with the residents assessment and plan of care. I have personally had face to face time with the patient. (Brief History, Brief Exam, and MDM) I personally supervised and was present for the rodriguez/critical portions of the following procedures completed by the resident: EKG/ central line 83 year old male presnt to the eD hypotension and altered mental status with y ellow/tanish sputum production and chills at home. Concern is for pnuemoina. He also has CHF and a pacemaker. Patient likely is hypotensive from pnuemoina but does not have an elevated lactic acid and we will not be treating him with 30ml/kg because of his CHF history the concern for pulmonary edema. So we will instead start vasopressor after 1L of fluids and continue with 100ml/hr. Patient will be started on azithro/zosyn and be admitted to [facility]. He did become hypoxic to 86% while he was sleeping and wears CPAP at night, but otherwie he is mainitaing his airway.
[2018-11-24] MEDS ORDERED: 0.9 % Sodium Chloride 500 ML IVC ONE (18:50)
[2018-11-24] MEDS: Norepinephrine 4 MG in 0.9 % Sodium Chloride 250 ML IVC SCH (19:32)
[2018-11-24 19:51] LABS: Bilirubin,Urine Negative (Negative); Blood,Urine Negative (Negative); Clarity,Urine Clear (Clear); Color,Urine Yellow (Yellow); Glucose,Urine (UA) Normal (Normal); Ketones,Urine Negative (Negative); Leukocyte Esterase,Urine Negative (Negative); Nitrite,Urine Negative (Negative); PH,Urine 5.5 pH Units (5.0-8.0); Protein,Urine Negative (Neg-Trace); Specific Gravity,Urine 1.017 (1.010-1.025); Urobilinogen,Urine Normal (Normal)
[2018-11-24] MEDS ORDERED: Ipratropium/Albuterol Neb 3 ML IH PRN (20:05)
[2018-11-24] MEDS ORDERED: Acetaminophen 325 MG TABLET PO PRN (20:05)
[2018-11-24] MEDS ORDERED: 0.9 % Sodium Chloride 1,000 ML IVC SCH (20:15)
--- NOTE | 2018-11-24 20:21 | Internal Med History&Physical ---
Date of Encounter: 11/24/18 Time of Encounter: 20:20 Internal Medicine - H&P: HPI Chief complaint: ams Admitted From: Home Plans for Post Hospital Care: Home History of present illness: Milton Clayton is an 83 year old man with coronary artery disease s/p CABG and multiple stents, heart failure with reduced ejection fraction secondary to ischemic cardiomyopathy with EF 35-50% in August 2017, ICD placement for ventricular ectopy, hypertension, diabetes and stage IIIb chronic kidney disease. He was brought to the ER by his daughter with complaints of altered mental status. She states that on 11/21 she noticed him a bit altered during his outpatient blood work appointment and he developed urinary incontinence. She asked that a UA be done to assess for a UTI. The following day he slept in bed all day as per his . Last night, the patients called the daughter stating that the patient seemed altered and could not recognize her. The daughter today called to ask for the urine results and was told it was unremarkable so she was advised to bring him to the ER for evaluation. He was hypotensive on arrival but afebrile and not tachycardic. Lab work revealed a normal lactate and WBC 13. CXR done was remarkable only for a right perihilar opacity. There was concern for pneumonia so he was started on empiric antibiotics. Due to the concern for CHF, he was only given 1L of saline and s tarted on norepinephrine. He is admitted to ICU for further care. He tells me that he has been having chills and and cough productive of thick, dark yellowish sputum which was corroborated by the . He denies chest pain and shortness of breath. He retains a healthy appetite. Vitals: Reviewed General: Well-developed white woman, somnolent but arousable with tactile stimuli in NAD. Skin: Warm, pale and dry. HEENT: Dry mucous membranes. (+) conjunctivae pallor. Neck: No lymphadenopathy. No JVD. No carotid bruits. No palpable thyroid. Chest: Normal thoracic expansion. Diminished breath sounds. Heart: Irregularly irregular. Abdomen: Non-distended, soft and non-tender to palpation. No peritoneal reaction. Extremities: No clubbing, cyanosis. 1+ pedal edema. No calf tenderness. Normal distal pulses. Neurological: Somnolent, oriented to person, place and time. No focal deficits. Psych: Affect appropriate. Assessment/Plan 1. Severe sepsis secondary to pneumonia: As evidenced by a hypotensive state with leukocytosis. Unclear if he is not tachycardic because he is beta blocked. His symptoms are respiratory. Will get a chest CT for a more thorough evaluation of pneumonic consolidation. Advise to get a respiratory virus panel, urine legionella/Strep antigens, and blood/sputum cultures. Empiric antibiotics of ceftriaxone/azithromycin for now given the absence of notable MDR risk factors such as recent hospitalizations, use of antibiotics or residence in a facility. Check MRSA nasal screen; if positive will add anti-Staphylococcal therapy. Norepinephrine will be titrated off with BP stabilization. 2. Acute on chronic kidney injury: Suspect secondary to volume depletion from poor clinical state as well as sepsis. Will provide another liter of fluids to be given overnight and recheck BMP. 3. Coronary artery disease: Continue aspirin and statin. 4. Ischemic cardiomyopathy: Will get a TTE to evaluate current EF. Hold sacubitril/valsartan and carvedilol for now until hemodynamic stabilization. 5. Diabetes: Well controlled with an A1C of 6.5% six months ago. Place on insulin sliding scale. 6. Atrial fibrillation: On warfarin with a therapeutic INR. 7. Anemia: Chronic. His Hgb has been stable for the past year. As per the daughter, he is scheduled to receive parenteral iron this week in addition to a sigmoidoscopy as he was found to have (+) FOBT 1 month ago, following with Dr. Bonds. 8. Arthritis: The patient is on APAP/oxycodone for chronic arthritic pains. Past Med Surg Social Fam HX - Past Medical History Medical history: coronary artery disease, diabetes, hypertension, myocardial infarction, renal disease, other Additional medical history: baretts esophogus, sleep apnea, anemia, hepatitis, Psychiatric history: no psych history - Past Surgical History Surgical History: angioplasty/stent, coronary bypass (CABG), LE Bypass, orthopedic, other, pacemaker/AICD Additional surgical history: cardiac stents - Social History Smoking Status: Unknown if ever smoked Smokeless Tobacco Status: No Alcohol use: none Drug use: none - Family History Mother Adopted: No Family Member Ethnicity: Non- Living Status: Unknown Hx Family Cardiac Disorders: No Hx Family Endocrine Disorder: Yes Father Adopted: No Family Member Ethnicity: Non- Living Status: Hx Family Cardiac Disorders: Yes Hx Family Respiratory Disorders: No Hx Family Cancer: No Hx Family GI Disorders: No Hx Family Endocrine Disorder: No Hx Family Neuromuscular Disorders: No Hx Family Neurologic Disorders: No Hx Family HEENT Disorders: No Hx Family Autoimmune Disorders: No Internal Medicine - H&P: Meds B2/Vits A,C,E/Lut/Zeaxanth/Min [Icaps Tablet] 1 each PO DAILY 10/19/15 [History] Carvedilol 12.5 mg PO BID 10/19/15 [History] Ezetimibe [Zetia] 10 mg PO DAILY 10/19/15 [History] Finasteride [Proscar] 5 mg PO DAILY 10/19/15 [History] Furosemide [Lasix] 40 mg PO DAILY PRN 10/19/15 [History] Gabapentin [Neurontin] 300 mg PO BID 10/19/15 [History] Loratadine [Claritin] 10 mg PO DAILY 10/19/15 [History] Nitroglycerin [Nitrostat] 0.4 mg SL PRN PRN 10/19/15 [History] Oxycodone HCl/Acetaminophen [Percocet 5-325 mg Tablet] 1 each PO Q6H PRN 10/18 [History] Pantoprazole Sodium [Protonix] 40 mg PO DAILY 10/19/15 [History] Pravastatin Sodium [Pravachol] 40 mg PO DAILY 10/19/15 [History] Tamsulosin [Flomax] 0.4 mg PO HS 10/19/15 [History] metFORMIN [Glucophage] 500 mg PO DAILY 10/19/15 [History] Aspirin 81 mg PO DAILY #30 tab.chew 10/22/15 [Rx] Iron Chews 06/12/18 [History] Potassium Chloride [Klor-Con] 20 meq PO BID 06/12/18 [History] Sacubitril/Valsartan 24/26 MG [Entresto 24 mg-26 mg Tablet] 2 tab PO DAILY 06/12/18 [History] Ferrous Sulfate [Iron] 325 mg PO BID 11/24/18 [History] Allergy/AdvReac Type Severity Reaction Status Date / Time levofloxacin [From Levaquin] Allergy See Verified 06/12/18 16:47 Comments lisinopril Allergy See Verified 06/12/18 16:47 Comments metoclopramide Allergy Confusion Verified 09/17/18 14:28 atorvastatin [From Lipitor] AdvReac See Verified 06/12/18 16:47 Comments simvastatin [From Zocor] AdvReac See Verified 06/12/18 16:47 Comments All Systems PM: A 10-system review of systems was performed and is negative for pertinent findings except as documented above in the HPI. - Constitutional Vitals: Temp Pulse Resp BP Pulse Ox 98.0 F 74 18 108/64 100 11/24/18 17:36 11/24/18 20:00 11/24/18 20:00 11/24/18 20:00 11/24/18 20:00 Exam: . Internal Med - H&P Results - Labs CBC & Chem 7: 11/24/18 17:31 11/24/18 17:31 Labs: Short CBC 11/24/18 Range/Units 17:31 WBC 13.7 H (4.3-11.1) K/mcL Hgb 10.4 L (12.9-16.9) g/dL Hct 32.9 L (37.5-50.1) % Plt Count 161 (140-400) K/mcL Neutrophils # 11.0 H (1.6-8.9) K/mcL BMP 11/24/18 17:31 Sodium 143 Potassium 4.5 Chloride 110 H Carbon Dioxide 23 BUN 52 H Creatinine 1.78 H Glucose 124 H Calcium 9.2 Cardiac Enzymes 11/24/18 Range/Units 17:31 Troponin I < 0.03 (< 0.04) ng/mL Liver Function 11/24/18 Range/Units 17:31 Total Bilirubin 0.4 (0.3-1.0) mg/dL Direct Bilirubin 0.1 (0.0-0.2) mg/dL AST 10 L (13-39) Units/L ALT 9 (7-52) Units/L Alkaline Phosphatase 88 (34-104) Units/L Albumin 3.6 (3.5-5.7) g/dL Urine 11/24/18 Range/Units 19:40 Urine Color Yellow (Yellow) Urine Clarity Clear (Clear) Urine pH 5.5 (5.0-8.0) pH Units Ur Specific [place] 1.017 (1.010-1.025) Urine Protein Negative (Neg-Trace) mg/dL Urine Glucose (UA) Normal (Normal) mg/dL - Impressions ITS Impressions Chest X-Ray 11/24/18 18:31 IMPRESSION: Right parahilar opacification could represent a pneumonia D/ / Aman Moreno MD / Aman Moreno MD Interpreting Provider: Aman Moreno MD Cervical Spine CT 11/24/18 18:43 IMPRESSION: No acute abnormality of the cervical spine. Mild degenerative changes lower cervical spine. Calcifications involving bilateral carotid vasculature reflect calcific atherosclerosis. D/ / Tejas Machado / Tejas Machado Interpreting Provider: Tejas Machado Head CT 11/24/18 18:43 IMPRESSION: No acute intracranial abnormality. Diffuse atrophic changes with findings suggesting chronic microvascular ischemia D/ / Aman Moreno MD / Aman Moreno MD Interpreting Provider: Aman Moreno MD - Time Spent With Patient Total time spent is greater than 50% in coordination of care (as documented) at patient's floor/unit and/or counseling patient:
[2018-11-24] MEDS: Azithromycin 500 MG in D5% in Water 250 ML IVPB SCH (21:17)
[2018-11-24] MEDS: Gabapentin 300 MG CAPSULE PO SCH (21:24)
[2018-11-24 23:10] LABS: Adenovirus Not Detected (Not Detect); Bordetella Pertussis Not Detected (Not Detect); Chlamydophila pneumoniae Not Detected (Not Detect); Coronavirus 229E Not Detected (Not Detect); Coronavirus HKU1 Not Detected (Not Detect); Coronavirus NL63 Not Detected (Not Detect); Coronavirus OC43 Not Detected (Not Detect); Human Metapneumovirus Not Detected (Not Detect); Human Rhinovirus/Enterovirus Not Detected (Not Detect); Influenza A Subtype 2009 H1 Not Detected (Not Detect); Influenza A Untypeable Not Detected (Not Detect); Influenza B Not Detected (Not Detect); Mycoplasma pneumoniae Not Detected (Not Detect); Parainfluenza Virus 1 Not Detected (Not Detect); Parainfluenza Virus 2 Not Detected (Not Detect); Parainfluenza Virus 3 Not Detected (Not Detect); Parainfluenza Virus 4 Not Detected (Not Detect); Respiratory Syncytial Virus Not Detected (Not Detect)
[2018-11-25 03:24] LABS: Basophils % 0.3 %; Eosinophils # 0.3 K/mcL (0.0-0.6); Eosinophils % 2.3 %; Hematocrit 28.8 % (37.5-50.1); Immature Granulocytes % 0.4 % (0-4); Lymphocytes % 18.1 %; Mean Corpuscular HGB Conc 31.3 g/dL (31.6-35.5); Mean Corpuscular Hemoglobin 30.1 pg (28.0-33.3); Mean Corpuscular Volume 96.3 fL (83.0-100.0); Mean Platelet Volume 10.2 fL (9.4-12.4); Monocytes # 0.7 K/mcL (0.0-1.3); Monocytes % 6.3 %; Neutrophils # 8.1 K/mcL (1.6-8.9); Platelet Count 134 K/mcL (140-400); Red Blood Count 2.99 M/mcL (4.19-5.50); Red Cell Distribution Width 14.6 % (11.5-14.5); Segmented Neutrophils % 72.6 %; White Blood Count 11.1 K/mcL (4.3-11.1)
[2018-11-25 03:29] LABS: INR 2.1; Prothrombin Time 24.3 Seconds (9.4-12.1)
[2018-11-25 03:38] LABS: BUN/Creatinine Ratio 32 (6-26); Blood Urea Nitrogen 43 mg/dL (8-23); Calcium 8.4 mg/dL (8.6-10.3); Carbon Dioxide 24 mEq/L (23-29); Chloride 114 mEq/L (98-107); Glucose 93 mg/dL (70-105); Osmolality,Calculated 307 (280-300); Potassium 3.9 mEq/L (3.5-5.1); Sodium 143 mEq/L (136-145); eGFR For African Americans > 60 (> 60); eGFR For Non-African Americans 50 (> 60)
[2018-11-25] MEDS: Piperacillin/Tazobactam 3.375 GM in 0.9 % Sodium Chloride Mini Bag 100 ML IVPB SCH ×3 (08:58→23:51)
[2018-11-25] MEDS ORDERED: Aspirin Enteric Coated 81 MG Tablet PO SCH (09:00)
[2018-11-25] MEDS ORDERED: cefTRIAXone 1,000 MG in Water for inj. (sterile) 10 ML IVPB SCH (09:00)
[2018-11-25] MEDS: Finasteride 5 MG TABLET PO SCH (09:01)
[2018-11-25] MEDS: Gabapentin 300 MG CAPSULE PO SCH ×2 (09:01→19:58)
[2018-11-25] MEDS: Aspirin 81 MG TAB.CHEW PO SCH (09:01)
[2018-11-25] MEDS: Azithromycin 500 MG in D5% in Water 250 ML IVPB SCH (09:01)
[2018-11-25] MEDS: (Ezetimibe [Zetia] 10 MG) PO SCH (09:07)
[2018-11-25] MEDS: (Pravastatin Sodium [Pravachol] 40 MG) PO SCH (09:07)
[2018-11-25] MEDS ORDERED: D5% in Water 1,000 ML IVC PRN (09:15)
[2018-11-25] MEDS ORDERED: *HR* Dextrose 50 % in Water (Syg) 50 ML SYRINGE IVP PRN (09:15)
[2018-11-25] MEDS ORDERED: Dextrose Gel 15 GM/37.5 ML TUBE PO PRN ×2 (09:15)
[2018-11-25 11:47] LABS: Estimated Average Glucose 137 mg/dl
[2018-11-25] MEDS: 0.9 % Sodium Chloride 1,000 ML IVC SCH ×2 (12:17→20:22)
[2018-11-25] MEDS: Insulin LISPRO 300 UNITS/3 ML VIAL SQ SCH ×2 (12:27→17:25)
--- NOTE | 2018-11-25 13:21 | Internal Med Progress Note ---
Hospitalist Progress Note - Encounter Date of Encounter: 11/25/18 Time of Encounter: 08:50 - Subjective Interval History: Patient admitted overnight for pneumonia and sepsis. He is off pressors now and was fluid resuscitated in the ER. Currently his blood pressure is a little soft, but he is alert and mentating and back to baseline according to his maegan ghter. He admits to having fevers, chills, cough, shortness of breath, and nausea for about a week prior to admission. Workup in the ER revealed patient to have multifocal pneumonia and sepsis. He has improved clinically since then with regards to his blood pressure, respirations, and hypoxemia. He is currently on nasal cannula and does not need BiPAP at the present time. - Exam Vitals: Temp Pulse Resp BP Pulse Ox 98.0 F 71 16 116/61 99 11/25/18 11:50 11/25/18 12:00 11/25/18 12:00 11/25/18 12:00 11/25/18 12:00 Exam: General: NAD; A&Ox3 HEENT: dry mucosa; neck supple Chest: scattered rhonchi and faint crackels, no wheezes; easy respirations; RRR/paced Abdomen; soft, NT, ND, NO HSMG, + BS Ext: no CCE; equal pulses; no calf pain Skin: warm and dry, no rash Neuro: no focal deficits; A&Ox3 - Assessment and Plan (1) Sepsis Current Visit: Yes Status: Acute Assessment and Plan: 1. Currently off pressors. 2. Continue IVF and antibiotics. 3. Monitor hemodynamics. 4. Continue ICU care. (2) Pneumonia Current Visit: Yes Status: Acute Assessment and Plan: 1. Antibiotics and supportive measures as above. 2. Oxygen, aerosols, and BiPap PRN. 3. Follow cultures. (3) Diabetes Current Visit: Yes Status: Chronic Assessment and Plan: 1. Hold oral home meds. 2. Will order SSI and monitor glucose (4) CKD (chronic kidney disease) stage 3, GFR 30-59 ml/min Current Visit: Yes Status: Chronic Assessment and Plan: 1, Monitor renal function and UOP. 2. Consult nephrology for any renal decline. (5) CAD (coronary artery disease) Current Visit: Yes Status: Chronic Assessment and Plan: 1. No anginal symptoms presently. 2. Monitor clinically and resume home meds as appropriate. (6) DVT prophylaxis Current Visit: Yes Status: Acute Assessment and Plan: 1. Coumadin per pharmacy dosing. - Time Spent with Patient Total time spent is greater than 50% in coordination of care (as documented) at patient's floor/unit and/or counseling patient: Greater than 35 minutes Plan of Care Discussed with: other (MDR team, patient, and family) Internal Medicine: Result - Labs CBC & Chem 7: 11/25/18 03:10 11/25/18 03:10 Labs: Short CBC 11/24/18 11/25/18 Range/Units 17:31 03:10 WBC 13.7 H 11.1 (4.3-11.1) K/mcL Hgb 10.4 L 9.0 L (12.9-16.9) g/dL Hct 32.9 L 28.8 L (37.5-50.1) % Plt Count 161 134 L (140-400) K/mcL Neutrophils # 11.0 H 8.1 (1.6-8.9) K/mcL BMP 11/24/18 11/25/18 17:31 03:10 Sodium 143 143 Potassium 4.5 3.9 Chloride 110 H 114 H Carbon Dioxide 23 24 BUN 52 H 43 H Creatinine 1.78 H 1.35 H Glucose 124 H 93 Calcium 9.2 8.4 L Cardiac Enzymes 11/24/18 Range/Units 17:31 Troponin I < 0.03 (< 0.04) ng/mL Liver Function 11/24/18 Range/Units 17:31 Total Bilirubin 0.4 (0.3-1.0) mg/dL Direct Bilirubin 0.1 (0.0-0.2) mg/dL AST 10 L (13-39) Units/L ALT 9 (7-52) Units/L Alkaline Phosphatase 88 (34-104) Units/L Albumin 3.6 (3.5-5.7) g/dL Urine 11/24/18 Range/Units 19:40 Urine Color Yellow (Yellow) Urine Clarity Clear (Clear) Urine pH 5.5 (5.0-8.0) pH Units Ur Specific [place] 1.017 (1.010-1.025) Urine Protein Negative (Neg-Trace) mg/dL Urine Glucose (UA) Normal (Normal) mg/dL - ABG Interpretation ABG results: PT/INR, D-dimer PT 24.3 Seconds (9.4-12.1) H 11/25/18 03:10 - Impressions Impressions Chest X-Ray 11/24/18 18:31 IMPRESSION: Right parahilar opacification could represent a pneumonia D/ / Aman Moreno MD / Aman Moreno MD Interpreting Provider: Aman Moreno MD Cervical Spine CT 11/24/18 18:43 IMPRESSION: No acute abnormality of the cervical spine. Mild degenerative changes lower cervical spine. Calcifications involving bilateral carotid vasculature reflect calcific atherosclerosis. D/ / Tejas Machado / Tejas Machado Interpreting Provider: Tejas Machado Head CT 11/24/18 18:43 IMPRESSION: No acute intracranial abnormality. Diffuse atrophic changes with findings suggesting chronic microvascular ischemia D/ / Aman Moreno MD / Aman Moreno MD Interpreting Provider: Aman Moreno MD Chest X-Ray 11/24/18 20:26 IMPRESSION: Tip of the right internal jugular central venous catheter is in the expected position, superimposed over the lower superior vena cava. No pneumothorax. D/ / Jose Kirk MD / Jose Kirk MD Interpreting Provider: Jose Kirk MD Chest CT 11/25/18 00:00 IMPRESSION: 1. Groundglass and consolidative opacities in the right upper and right lower lobes and less prominently the left lower lobe likely represent multifocal pneumonia or aspiration. 2. Patchy infectious or inflammatory bronchiolitis in the left lower lobe. 3. 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 D/ / Aman Nesbitt MD / Aman Nesbitt MD Interpreting Provider: Aman Nesbitt MD Echocardiogram 11/25/18 07:16 Impressions: LVEF 45-50%. Mild segmental left ventricular systolic dysfunction. Mild left ventricular diastolic dysfunction. Normal right ventricular structure and function. Moderately dilated left atrium. Mild-moderate aortic regurgitation. Mild tricuspid regurgitation. No pulmonary hypertension. External compression of left atrium, dilated descending aorta or hiatal hernia. Recommend CT for further evaluation. Ordering physician notified via [employer]. Left Ventricular Wall Motion: Rest Echo Findings The apical inferior, mid inferior and basal inferior donahue were hypokinetic. All other wall segments showed normal motion. Findings: Study Quality * Technically sub-optimal due to clinical status. ECG Findings * Normal sinus rhythm. Left Ventricle * LVEF 45-50%. * Normal LV chamber size, wall thickness. * Mild segmental left ventricular systolic dysfunction. * Mild left ventricular diastolic dysfunction. * Definity echo contrast was not used. Right Ventricle * Normal right ventricular structure and function. Left Atrium * Moderately dilated left atrium. External compression of left atrium, consider hiatal hernia vs dilated descending aorta. Recommend CT for further evaluation. Right Atrium * Normal right atrial size. Interatrial Septum * Interatrial septum not well evaluated. Aortic Valve * Aortic valve not well visualized. * Mildly calcified aortic valve leaflets. * Mild-moderate aortic regurgitation. * No aortic stenosis. Mitral Valve * Normal mitral valve structure. * No mitral stenosis. * Trace mitral regurgitation. Tricuspid Valve * Normal tricuspid valve structure. * No tricuspid stenosis. * Mild tricuspid regurgitation. * Estimated RVSP is 25 mmHg. * Estimated RA pressure is 3 mmHg. * No pulmonary hypertension. Pulmonic Valve * Pulmonic valve is not well visualized. * No pulmonic stenosis. * Trace pulmonic regurgitation. Aorta * Normally sized aortic root. Pericardium * The pericardium appears normal. IVC * The IVC is not dilated. * > 50% respiratory change Device lead * A device lead was visualized in the right atrium and right ventricle. 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: without breaker machine tender use Diabetes mellitus complication status: with kidney complications Diabetes mellitus complication detail: with chronic kidney disease Chronic kidney disease stage: stage 3 (moderate) Qualified Code(s): E11.22 - Type 2 diabetes mellitus with diabetic chronic kidney disease; N18.3 - Chronic kidney disease, stage 3 (moderate) (5) CAD (coronary artery disease) Qualifiers: Coronary Disease-Associated Artery/Lesion type: bypass graft, autologous vein Associated angina: without angina Qualified Code(s): I25.810 - Atherosclerosis of coronary artery bypass graft(s) without angina pectoris
--- NOTE | 2018-11-25 13:29 | Electrocardiograph Report ---
[address] [address] Test Date: 2018-11-24 Pat Name: Milton Clayton Department: EXAM7 Room: 10 Gender: M Automobile Mechanic Motor: : 1935 Requested By: Kimberly Amaral Order Number: [id number] Reading MD: Dennis Yoon Measurements Intervals [place] Rate: 68 P: -33 VA: 169 QRS: -19 QRSD: 168 T: 14 QT: 413 QTc: 436 Interpretive Statements Sinus rhythm Ventricular premature complex BASELINE ARTIFACT Electronically Signed On 11-25-2018 13:28:09 EDT by Dennis Yoon
--- NOTE | 2018-11-25 13:48 | Electrocardiograph Report ---
[address] [place], [place] [address] Test Date: 2018-11-24 Pat Name: Milton Clayton Department: 109 Room: 10 Gender: M Placement Officer: : 1935 Requested By: Marzena Garcia Order Number: [id number] Reading MD: Dennis Yoon Measurements Intervals [place] Rate: 74 P: 181 MD: 156 QRS: -9 QRSD: 116 T: -58 QT: 383 QTc: 410 Interpretive Statements SINUS RHYTHM LOW QRS VOLTAGE IN EXTREMITY LEADS INFERIOR MYOCARDIAL INFARCTION, OF INDETERMINATE AGE Electronically Signed On 11-25-2018 13:46:40 EDT by Dennis Yoon
[2018-11-25] MEDS ORDERED: *HR* Warfarin 5 MG TABLET PO ONE (18:00)
[2018-11-25] MEDS ORDERED: Warfarin perPT PO PRN (18:00)
[2018-11-25] MEDS: Norepinephrine 4 MG in 0.9 % Sodium Chloride 250 ML IVC SCH (19:28)
[2018-11-26 04:42] LABS: Basophils # 0.1 K/mcL (0.0-0.2); Basophils % 0.5 %; Eosinophils # 0.5 K/mcL (0.0-0.6); Eosinophils % 4.8 %; Hematocrit 28.4 % (37.5-50.1); Hemoglobin 8.9 g/dL (12.9-16.9); Immature Granulocytes % 0.3 % (0-4); Lymphocytes # 1.5 K/mcL (0.6-4.6); Lymphocytes % 15.8 %; Mean Corpuscular HGB Conc 31.3 g/dL (31.6-35.5); Mean Corpuscular Hemoglobin 30.4 pg (28.0-33.3); Mean Corpuscular Volume 96.9 fL (83.0-100.0); Mean Platelet Volume 10.1 fL (9.4-12.4); Monocytes # 0.8 K/mcL (0.0-1.3); Monocytes % 7.8 %; Neutrophils # 6.8 K/mcL (1.6-8.9); Platelet Count 132 K/mcL (140-400); Red Blood Count 2.93 M/mcL (4.19-5.50); Red Cell Distribution Width 14.6 % (11.5-14.5); Segmented Neutrophils % 70.8 %; White Blood Count 9.7 K/mcL (4.3-11.1)
[2018-11-26 05:01] LABS: BUN/Creatinine Ratio 22 (6-26); Blood Urea Nitrogen 24 mg/dL (8-23); Calcium 8.1 mg/dL (8.6-10.3); Carbon Dioxide 20 mEq/L (23-29); Chloride 115 mEq/L (98-107); Glucose 104 mg/dL (70-105); INR 1.9; Osmolality,Calculated 298 (280-300); Potassium 4.2 mEq/L (3.5-5.1); Prothrombin Time 21.5 Seconds (9.4-12.1); Sodium 142 mEq/L (136-145); eGFR For African Americans > 60 (> 60); eGFR For Non-African Americans > 60 (> 60)
[2018-11-26] MEDS: 0.9 % Sodium Chloride 1,000 ML IVC SCH ×2 (05:31→08:54)
[2018-11-26] MEDS: Insulin LISPRO 300 UNITS/3 ML VIAL SQ SCH ×3 (08:41→19:41)
[2018-11-26] MEDS: Piperacillin/Tazobactam 3.375 GM in 0.9 % Sodium Chloride Mini Bag 100 ML IVPB SCH ×3 (08:48→19:43)
[2018-11-26] MEDS: Azithromycin 500 MG in D5% in Water 250 ML IVPB SCH (08:49)
[2018-11-26] MEDS: Finasteride 5 MG TABLET PO SCH (08:49)
[2018-11-26] MEDS: Aspirin 81 MG TAB.CHEW PO SCH (08:49)
[2018-11-26] MEDS: Gabapentin 300 MG CAPSULE PO SCH ×2 (08:49→19:38)
[2018-11-26] MEDS: (Pravastatin Sodium [Pravachol] 40 MG) PO SCH (08:51)
[2018-11-26] MEDS: (Ezetimibe [Zetia] 10 MG) PO SCH (08:51)
[2018-11-26] MEDS ORDERED: Aminoglycoside Consult 1 EACH MC ONE (16:08)
[2018-11-26] MEDS ORDERED: Ipratropium/Albuterol Neb 3 ML IH PRN (17:10)
[2018-11-26] MEDS ORDERED: *HR* Dextrose 50 % in Water (Syg) 50 ML SYRINGE IVP PRN (17:10)
[2018-11-26] MEDS ORDERED: *HR* OxyCODONE/APAP 5/325 TABLET PO PRN (17:10)
[2018-11-26] MEDS ORDERED: Dextrose Gel 15 GM/37.5 ML TUBE PO PRN ×2 (17:10)
[2018-11-26] MEDS ORDERED: D5% in Water 1,000 ML IVC PRN (17:10)
[2018-11-26] MEDS ORDERED: Acetaminophen 325 MG TABLET PO PRN (17:10)
[2018-11-26] MEDS ORDERED: Nitroglycerin 0.4 MG TAB.SUBL SL PRN (17:10)
[2018-11-26] MEDS ORDERED: *HR* Warfarin 3 MG TABLET PO ONE (18:00)
--- NOTE | 2018-11-26 18:04 | Internal Med Progress Note ---
Hospitalist Progress Note - Encounter Date of Encounter: 11/26/18 Time of Encounter: 09:20 - Subjective Interval History: Patient looks and feels much better today; A&Ox3. He is coughing but breathing easily. He denies CP. Discussed with daughter that he has had some recent LGI bleeding. Will stop Coumadin for now, order hemoccult, and consult GI for possible endoscopy. Of note, hgb dropped significantly since admission, but part or most likely due to dilutional effect. - Exam Vitals: Temp Pulse Resp BP Pulse Ox 97.4 F L 82 14 133/77 100 11/26/18 16:00 11/26/18 16:00 11/26/18 16:00 11/26/18 16:00 11/26/18 10:00 Exam: General: NAD, sitting up in bed, eating breakfast HEENT: moist mucosa, neck supple CHest: coarse rhonchi and few basilar crackles, RRR w ectopy. Abdomen: soft, NT, ND, no HSMG, + BS Ext: no calf pain, no edema, equal pulses Neuro; A&Ox3, no focal deficits Skin: warm and dry - Assessment and Plan (1) Sepsis Current Visit: Yes Status: Acute Assessment and Plan: 1. Continue antibiotics. 2. Wean off IVF today. 3. Follow cultures and adjust antibiotics accordingly. 4. Renal function normalized. 5. May resume Lasix tomorrow for his chronic CHF. 6. Transition out of ICU today to step down unit. (2) Pneumonia Current Visit: Yes Status: Acute Assessment and Plan: 1. As above. 2. Wean oxygen and aerosols per clinical response. (3) Diabetes Current Visit: Yes Status: Chronic Assessment and Plan: 1. Monitor glucose and continue SSI. (4) CKD (chronic kidney disease) stage 3, GFR 30-59 ml/min Current Visit: Yes Status: Chronic Assessment and Plan: 1. Renal function at baseline/normal. 2. Stop IVF and resume Lasix tomorrow. 3. Monitor renal function and consult nephrology if necessary. (5) CAD (coronary artery disease) Current Visit: Yes Status: Chronic Assessment and Plan: 1. No angina presently. 2. Resume home meds as appropriate. 3. Monitor on telemetry and clinically. (6) LGI bleed Current Visit: Yes Status: Acute Assessment and Plan: 1. Stop Coumadin. 2. Stool hemoccult. 3. Consult GI for likely endoscopy and guidance regadring senior living anti- coagulation. (7) DVT prophylaxis Current Visit: Yes Status: Acute Assessment and Plan: 1. EPCD's. - Time Spent with Patient Total time spent is greater than 50% in coordination of care (as documented) at patient's floor/unit and/or counseling patient: Plan of Care Discussed with: other (MDR team, patient, daughter) Internal Medicine: Result - Labs CBC & Chem 7: 11/26/18 04:25 11/26/18 04:25 Labs: Short CBC 11/26/18 Range/Units 04:25 WBC 9.7 (4.3-11.1) K/mcL Hgb 8.9 L (12.9-16.9) g/dL Hct 28.4 L (37.5-50.1) % Plt Count 132 L (140-400) K/mcL Neutrophils # 6.8 (1.6-8.9) K/mcL BMP 11/26/18 04:25 Sodium 142 Potassium 4.2 Chloride 115 H Carbon Dioxide 20 L BUN 24 H Creatinine 1.10 Glucose 104 Calcium 8.1 L - ABG Interpretation ABG results: PT/INR, D-dimer PT 21.5 Seconds (9.4-12.1) H 11/26/18 04:25 Consult Discharge Plan - Plan Referrals: Judy Morgan, [employer] [Primary Care Provider] - (1) Sepsis Qualifiers: Sepsis type: sepsis due to unspecified organism Sepsis acute organ dysfunction status: with acute organ dysfunction Acute respiratory failure type: with hypoxia Severe sepsis shock status: with septic shock (2) Pneumonia Qualifiers: Pneumonia type: due to unspecified organism Laterality: unspecified laterality Lung location: unspecified part of lung Qualified Code(s): J18.9 - Pneumonia, unspecified organism (3) Diabetes Qualifiers: Diabetes mellitus type: type 2 Diabetes mellitus senior living insulin use: without senior living use Diabetes mellitus complication status: with kidney complications Diabetes mellitus complication detail: with chronic kidney disease Chronic kidney disease stage: stage 3 (moderate) Qualified Code(s): E11.22 - Type 2 diabetes mellitus with diabetic chronic kidney disease; N18.3 - Chronic kidney disease, stage 3 (moderate) (5) CAD (coronary artery disease) Qualifiers: Coronary Disease-Associated Artery/Lesion type: bypass graft, autologous vein Associated angina: without angina Qualified Code(s): I25.810 - Atherosclerosis of coronary artery bypass graft(s) without angina pectoris
[2018-11-27] MEDS: Piperacillin/Tazobactam 3.375 GM in 0.9 % Sodium Chloride Mini Bag 100 ML IVPB SCH ×2 (00:34→07:32)
[2018-11-27] MEDS: Insulin LISPRO 300 UNITS/3 ML VIAL SQ SCH ×3 (07:15→16:06)
[2018-11-27 07:24] LABS: INR 1.7; Prothrombin Time 19.7 Seconds (9.4-12.1)
[2018-11-27] MEDS: Finasteride 5 MG TABLET PO SCH (07:31)
[2018-11-27] MEDS: Loratadine 10 MG TABLET PO SCH (07:31)
[2018-11-27] MEDS: Aspirin 81 MG TAB.CHEW PO SCH (07:32)
[2018-11-27] MEDS: Gabapentin 300 MG CAPSULE PO SCH ×2 (07:32→23:22)
[2018-11-27] MEDS: Furosemide 40 MG TABLET PO SCH (07:32)
[2018-11-27] MEDS ORDERED: *HR* OxyCODONE/APAP 5/325 TABLET PO PRN (08:03)
[2018-11-27] MEDS ORDERED: Azithromycin 250 MG TABLET PO SCH ×2 (09:00)
[2018-11-27] MEDS ORDERED: Doxycycline 100 MG in 0.9 % Sodium Chloride Mini Bag 100 ML IVPB SCH (11:00)
[2018-11-27] MEDS: Pravastatin Sodium [Pravachol] 40 MG PO SCH (11:23)
[2018-11-27] MEDS: Doxycycline 100 MG in 0.9 % Sodium Chloride Mini Bag 100 ML IVPB SCH ×3 (11:30→18:18)
--- NOTE | 2018-11-27 11:38 | Gastroenterology Consult Note ---
<Aman Chen - Last Filed: 11/27/18 11:35> Date of Encounter: 11/27/18 Time of Encounter: 09:45 - Assessment and plan (1) Anemia Current Visit: Yes Status: Acute Assessment and plan: On admission Hgb 10.4 with INR 2.3, yesterday Hgb 8.9, and this AM INR 1.7. Continue to monitor CBC and transfuse PRBC as needed. Check CBC today. Check PT/INR in AM. Plan for push enteroscopy and colonoscopy tomorrow. Clear liquid diet today, no red or purple. NPO at midnight. If unable tolerate NuLytely please use MiraLAX prep. If not clear by 6 AM, give 2 tap water enemas. Patient has been scheduled for Injectafer on 12/01/2018 and 12/15/2018 as outpatient due to BECKY. Qualifiers: Anemia type: iron deficiency Qualified Code(s): D50.9 - Iron deficiency anemia, unspecified (2) Black stool Current Visit: Yes Status: Acute Assessment and plan: Continue PPI and plan for push enteroscopy tomorrow. Keep NPO at midnight. - Time Spent With Patient Total time spent is greater than 50% in coordination of care (as documented) at patient's floor/unit and/or counseling patient: GI History of Present Illness - Data of Consult Patient: known to practice within the last 3 years Consult date: 11/27/18 Requesting Physician: Petra Flores - Consult Narrative Reason for consult: Anemia History of present illness: Mr. Clayton is a 83 year old male with PMHx of CAD, s/p CABG with multiple wil nts, ischemic cardiomyopathy, ICD, BECKY, CKD, DM, HTN, who was brought to the ED due to altered mental status. On arrival he was hypotensive, WBC 13, and concerned for PNA. On admission Hgb 10.4 with INR 2.3, yesterday Hgb 8.9, and this AM INR 1.7. Flex sig was planned for today as outpatient but was cancelled due to hospital admission. We have been consulted to evaluate his anemia. He denies chills, chest pain, shortness of breath, abdominal pain, nausea, vomiting, or hematochezia. He does report black tarry stools for the past few days. Procedures: Colonoscopy 11/07/2017 Dr. Bonds: 5 mm tubular adenoma, internal hemorrhoids, repeat in 5 years. EGD 11/07/2017 with gastric mucosal atrophy, gastritis, empiric dilation of the esophagus. NSAIDs: None Anticoagulation: Coumadin Past Med Surg Social Fam HX - Past Medical History Medical history: CHF, coronary artery disease, diabetes, hypertension, myocardial infarction, renal disease, other Additional medical history: SLEEP APNEA Psychiatric history: no psych history - Past Surgical History Surgical History: cholecystectomy, coronary bypass (CABG), hip replacement, knee replacement, AICD, pacemaker Additional surgical history: cardiac stentsX5 - Social History Smoking Status: Unknown if ever smoked Smokeless Tobacco Status: No Alcohol use: none Drug use: none - Family History Mother Adopted: No Family Member Ethnicity: Non- Living Status: Unknown Hx Family Cardiac Disorders: No Hx Family Endocrine Disorder: Yes Father Adopted: No Family Member Ethnicity: Non- Living Status: Hx Family Cardiac Disorders: Yes Hx Family Respiratory Disorders: No Hx Family Cancer: No Hx Family GI Disorders: No Hx Family Endocrine Disorder: No Hx Family Neuromuscular Disorders: No Hx Family Neurologic Disorders: No Hx Family HEENT Disorders: No Hx Family Autoimmune Disorders: No - Gastrointestinal Gastrointestinal: Present: as per HPI - Constitutional Constitutional: as per HPI - EENT Eyes: as per HPI Ears: Present: as per HPI Nose, mouth and throat: Present: as per HPI - Cardiovascular Cardiovascular ROS: Present: as per HPI - Respiratory Respiratory IM: Present: as per HPI - Genitourinary Genitourinary: Absent: change in color, Urinary frequency - Neurological ROS Neurological GI: Present: as per HPI - Hematologic/Lymphatic Hematologic/Lymphatic pediatric: Present: as per HPI - Musculoskeletal Musculoskeletal ROS GI: Present: as per HPI - Integumentary Integumentary GI: Present: as per HPI - Psychiatric ROS Psychiatric GI: Present: as per HPI - Endocrine Endocrine IM: Present: as per HPI - Constitutional Vitals: Temp Pulse Resp BP Pulse Ox 98.1 F 73 16 127/79 92 11/27/18 11:00 11/27/18 11:00 11/27/18 11:00 11/27/18 11:00 11/27/18 11:00 General appearance: Present: cooperative, A&O X 3, no acute distress, answers questions appropriately - Head Head exam: Present: atraumatic, normocephalic - Eye Eye exam: Present: normal appearance, sclera anicteric - ENT ENT exam: Present: mucous membranes moist - Neck Neck exam general surgery: Present: normal inspection, trachea midline - Respiratory Respiratory exam: Present: decreased breath sounds, CTAB. Absent: rales, rhonchi, wheezes - Cardiovascular Cardiovascular exam: Present: RRR, +S1, +S2 - GI/Abdominal GI/Abdominal exam: Present: soft, no peritoneal signs. Absent: distended, firm, guarding, tenderness - Rectal Rectal exam: Present: deferred - Extremities Exam Extremities exam: Present: warm - Neurological Exam Neurological exam: Present: no focal deficits - Psychiatric Psychiatric exam: Present: normal affect, normal mood - Skin Skin exam: Present: dry, intact, normal color, warm Results - Labs CBC & Chem 7: 11/26/18 04:25 11/26/18 04:25 Labs: Entire Visit 11/27/18 05:32 PT 19.7 H - ABG ABG results: PT/INR, D-dimer PT 19.7 Seconds (9.4-12.1) H 11/27/18 05:32 Consult Discharge Plan - Plan Referrals: Judy Morgan, HOSPICE DIRECTOR [Primary Care Provider] - <CammieIgor - Last Filed: 11/27/18 17:29> Date of Encounter: 11/27/18 Time of Encounter: 14:00 - Time Spent With Patient Total time spent is greater than 50% in coordination of care (as documented) at patient's floor/unit and/or counseling patient: GI History of Present Illness - Data of Consult Requesting Physician: Petra Flores - Consult Narrative History of present illness: Mr. Clayton is a 83 year old male - Constitutional Vitals: Temp Pulse Resp BP Pulse Ox 98.0 F 73 17 144/72 96 11/27/18 15:56 11/27/18 15:56 11/27/18 15:56 11/27/18 15:56 11/27/18 15:56 Results - Labs CBC & Chem 7: 11/27/18 11:57 11/26/18 04:25 Labs: Entire Visit 11/27/18 11/27/18 05:32 11:57 Hgb 10.4 L D Hct 32.5 L PT 19.7 H - ABG ABG results: PT/INR, D-dimer PT 19.7 Seconds (9.4-12.1) H 11/27/18 05:32 - Attending Attestation I have personally performed a face to face evaluation on this patient. I have reviewed and agree with the care plan. History and Exam by me shows: Patient seen denies any GI bleeding obvious. On examination: Alert and awake not in distress. Assessment: Patient with anemia does have a history of B12 and iron deficiency. Recommendation: Enteroscopy and colonoscopy. Enteroscopy to rule out small bowel AVM.
[2018-11-27 12:23] LABS: Hematocrit 32.5 % (37.5-50.1); Hemoglobin 10.4 g/dL (12.9-16.9); Mean Corpuscular Hemoglobin 30.5 pg (28.0-33.3); Mean Corpuscular Volume 95.3 fL (83.0-100.0); Mean Platelet Volume 10.3 fL (9.4-12.4); Platelet Count 170 K/mcL (140-400); Red Blood Count 3.41 M/mcL (4.19-5.50); Red Cell Distribution Width 14.6 % (11.5-14.5)
--- NOTE | 2018-11-27 13:29 | Internal Med Progress Note ---
Hospitalist Progress Note - Encounter Date of Encounter: 11/27/18 Time of Encounter: 10:00 - Subjective Interval History: Seen at bedside. Feeling better than yesterday. Mentions improvement in the respiratory status. Mentions improvement in the cough. Had a big dark bowel movement today in the morning. Denies chest pain, or dizziness. - Exam Vitals: Temp Pulse Resp BP Pulse Ox 98.1 F 73 16 127/79 92 11/27/18 11:00 11/27/18 11:00 11/27/18 11:00 11/27/18 11:00 11/27/18 11:00 Exam: General: Alert and oriented, no physical distress, able to follow commands. HEENT: No thyromegaly, no lymphadenopathy, no discharge. Eyes: No discharge. Normal conjuctiva, no icterus Respiratory: Mild ronchi in bilateral lungs. No wheezing appreciated CVS: Normal heart sounds, no murmurs, regular rhthm, no edema Extremities: No peripheral edema, peripheral pulses intact. Lymph nodes: No lymphadenopathy Gastrointestinal: Soft, nontender abdomen, normal abdominal sounds. No distention noted. Genitourinary: No paravertebral tenderness. Skin: No rash, ulcers or wound. Neurological: Alert and oriented. No focal deficits. Cranial nerves II-XII intact.General: NAD, sitting up in bed, eating breakfast - Assessment and Plan (1) Sepsis Current Visit: Yes Status: Acute Assessment and Plan: Source is pneumonia. Sputum culture positive for MRSA and Escherichia coli. Antibiotics changed to doxycycline and ceftriaxone. (2) Pneumonia Current Visit: Yes Status: Acute Assessment and Plan: Plan mentioned above. (3) Black stool Current Visit: Yes Status: Acute Assessment and Plan: Had a big black movement today in the morning. Coumadin hold. INR subtherapeutic. GI on board, plan for endoscopy and colonoscopy tomorrow. Continue to monitor. (4) LGI bleed Current Visit: Yes Status: Acute Assessment and Plan: Plan as mentioned above. (5) CKD (chronic kidney disease) stage 3, GFR 30-59 ml/min Current Visit: Yes Status: Chronic Assessment and Plan: Creatinine remains to be stable. No Interventions. May need outpatient follow-up with a design center consultant. (6) Diabetes Current Visit: Yes Status: Chronic Assessment and Plan: BG levels continue to be in reasoabke range COntinue to monitor the levels (7) Iron deficiency anemia Current Visit: Yes Status: Acute Assessment and Plan: History of iron deficiency anemia. Seen by GI, plan for outpatient iron transfusions. Continue oral iron. - Time Spent with Patient Total time spent is greater than 50% in coordination of care (as documented) at patient's floor/unit and/or counseling patient: Internal Medicine: Result - Labs CBC & Chem 7: 11/27/18 11:57 11/26/18 04:25 Labs: Short CBC 11/27/18 Range/Units 11:57 WBC 9.0 (4.3-11.1) K/mcL Hgb 10.4 L D (12.9-16.9) g/dL Hct 32.5 L (37.5-50.1) % Plt Count 170 (140-400) K/mcL - ABG Interpretation ABG results: PT/INR, D-dimer PT 19.7 Seconds (9.4-12.1) H 11/27/18 05:32 Consult Discharge Plan - Plan Referrals: Judy Morgan, [employer] [Primary Care Provider] - (1) Sepsis Qualifiers: Sepsis type: sepsis due to unspecified organism Sepsis acute organ dysfunction status: with acute organ dysfunction Acute respiratory failure type: with hypoxia Severe sepsis shock status: with septic shock (2) Pneumonia Qualifiers: Pneumonia type: due to unspecified organism Laterality: unspecified laterality Lung location: unspecified part of lung Qualified Code(s): J18.9 - Pneumonia, unspecified organism (6) Diabetes Qualifiers: Diabetes mellitus type: type 2 Diabetes mellitus fdc insulin use: without moth exterminator use Diabetes mellitus complication status: with kidney complications Diabetes mellitus complication detail: with chronic kidney disease Chronic kidney disease stage: stage 3 (moderate) Qualified Code(s): E11.22 - Type 2 diabetes mellitus with diabetic chronic kidney disease; N18.3 - Chronic kidney disease, stage 3 (moderate)
[2018-11-27] MEDS ORDERED: cefTRIAXone 2,000 MG in Water for inj. (sterile) 20 ML IVP SCH (16:00)
[2018-11-27] MEDS ORDERED: cefTRIAXone 2,000 MG in 0.9 % Sodium Chloride Mini Bag 100 ML IVPB SCH (16:00)
[2018-11-27] MEDS: cefTRIAXone 2,000 MG in 0.9 % Sodium Chloride Mini Bag 100 ML IVPB SCH (16:25)
[2018-11-27] MEDS ORDERED: SODIUM CHLORIDE/NAHCO3/KCL/PEG 4,000 ML SOLN.RECON PO ONE (17:00)
[2018-11-28 02:40] LABS: Basophils # 0.1 K/mcL (0.0-0.2); Basophils % 0.7 %; Eosinophils # 0.5 K/mcL (0.0-0.6); Eosinophils % 5.9 %; Hematocrit 29.1 % (37.5-50.1); Hemoglobin 9.4 g/dL (12.9-16.9); Immature Granulocytes % 0.4 % (0-4); Lymphocytes # 1.4 K/mcL (0.6-4.6); Lymphocytes % 16.9 %; Mean Corpuscular HGB Conc 32.3 g/dL (31.6-35.5); Mean Corpuscular Hemoglobin 30.1 pg (28.0-33.3); Mean Corpuscular Volume 93.3 fL (83.0-100.0); Monocytes # 0.8 K/mcL (0.0-1.3); Monocytes % 9.3 %; Neutrophils # 5.7 K/mcL (1.6-8.9); Platelet Count 157 K/mcL (140-400); Red Blood Count 3.12 M/mcL (4.19-5.50); Red Cell Distribution Width 14.4 % (11.5-14.5); Segmented Neutrophils % 66.8 %; White Blood Count 8.5 K/mcL (4.3-11.1)
[2018-11-28 02:45] LABS: BUN/Creatinine Ratio 13 (6-26); Blood Urea Nitrogen 12 mg/dL (8-23); Calcium 8.3 mg/dL (8.6-10.3); Carbon Dioxide 22 mEq/L (23-29); Chloride 112 mEq/L (98-107); Glucose 105 mg/dL (70-105); Osmolality,Calculated 294 (280-300); Potassium 3.4 mEq/L (3.5-5.1); Sodium 142 mEq/L (136-145); eGFR For African Americans > 60 (> 60); eGFR For Non-African Americans > 60 (> 60)
[2018-11-28 02:48] LABS: INR 1.6; Prothrombin Time 18.7 Seconds (9.4-12.1)
[2018-11-28] MEDS: Doxycycline 100 MG in 0.9 % Sodium Chloride Mini Bag 100 ML IVPB SCH ×2 (06:15→17:06)
[2018-11-28] MEDS ORDERED: Potassium Chloride 20 MEQ, Lidocaine 1% 2 ML in 0.9 % Sodium Chloride 250 ML IVPB ONE (06:27)
[2018-11-28] MEDS: Insulin LISPRO 300 UNITS/3 ML VIAL SQ SCH ×3 (08:17→17:00)
[2018-11-28] MEDS: Finasteride 5 MG TABLET PO SCH (10:26)
[2018-11-28] MEDS: Gabapentin 300 MG CAPSULE PO SCH ×2 (10:27→20:35)
[2018-11-28] MEDS: Loratadine 10 MG TABLET PO SCH (10:27)
[2018-11-28] MEDS: Furosemide 40 MG TABLET PO SCH (10:28)
[2018-11-28] MEDS: Aspirin 81 MG TAB.CHEW PO SCH (10:28)
[2018-11-28] MEDS: Pravastatin Sodium [Pravachol] 40 MG PO SCH (10:29)
[2018-11-28] MEDS: cefTRIAXone 2,000 MG in 0.9 % Sodium Chloride Mini Bag 100 ML IVPB SCH (10:29)
--- NOTE | 2018-11-28 10:42 | Internal Med Progress Note ---
Hospitalist Progress Note - Encounter Date of Encounter: 11/28/18 Time of Encounter: 09:00 - Subjective Interval History: Patient was seen at bedside. Is currently nothing by mouth for the procedure. Denies any acute complaints today. Denies any blood in the stools overnight. Denies fever, chills, rigors. Denies chest pain or shortness of breath. - Exam Vitals: Temp Pulse Resp BP Pulse Ox 98.6 F 85 16 133/69 94 11/28/18 07:36 11/28/18 07:36 11/28/18 07:36 11/28/18 07:36 11/28/18 07:36 Exam: General: Alert and oriented but seems confused, no physical distress, able to follow commands. HEENT: No thyromegaly, no lymphadenopathy, no discharge. Eyes: No discharge. Normal conjuctiva, no icterus Respiratory: Mild ronchi in bilateral lungs. No wheezing appreciated CVS: Normal heart sounds, no murmurs, regular rhthm, no edema Extremities: No peripheral edema, peripheral pulses intact. Lymph nodes: No lymphadenopathy Gastrointestinal: Soft, nontender abdomen, normal abdominal sounds. No distention noted. Genitourinary: No paravertebral tenderness. Skin: No rash, ulcers or wound. Neurological: Alert and oriented. No focal deficits. Cranial nerves II-XII intact - Assessment and Plan (1) Sepsis Current Visit: Yes Status: Acute Assessment and Plan: Source is pneumonia. Sputum culture positive for MRSA and Escherichia coli. On doxycycline and ceftriaxone, consider total of 10 days of antibiotics.. (2) Pneumonia Current Visit: Yes Status: Acute Assessment and Plan: Plan mentioned above. (3) Black stool Current Visit: Yes Status: Acute Assessment and Plan: Had a big black movement yesterday in the morning. Coumadin hold. INR subtherapeutic. GI on board, plan for endoscopy and colonoscopy today Continue to monitor. (4) LGI bleed Current Visit: Yes Status: Acute Assessment and Plan: Plan as mentioned above. (5) CKD (chronic kidney disease) stage 3, GFR 30-59 ml/min Current Visit: Yes Status: Chronic Assessment and Plan: Creatinine remains to be stable. No Interventions. May need outpatient follow-up with a client solutions specialist. (6) Diabetes Current Visit: Yes Status: Chronic Assessment and Plan: BG levels continue to be in reasoabke range COntinue to monitor the levels (7) Iron deficiency anemia Current Visit: Yes Status: Acute Assessment and Plan: History of iron deficiency anemia. Seen by GI, plan for outpatient iron transfusions. Continue oral iron. (8) Acute blood loss anemia Current Visit: Yes Status: Acute Assessment and Plan: Patient had a big black bowel movement yesterday and his hemoglobin also dropped from 10.4-9.4. No signs of hemodynamic compromise. Plan for the colonoscopy and endoscopy today. GI on board. (9) Hypokalemia Current Visit: Yes Status: Acute Assessment and Plan: Potassium of 3.4 Repleated Repeat levels tomorrow - Summary of Assessment and Plan Summary of Assessment and Plan: PT/OT considering BMAT of 3 - Time Spent with Patient Total time spent is greater than 50% in coordination of care (as documented) at patient's floor/unit and/or counseling patient: Internal Medicine: Result - Labs CBC & Chem 7: 11/28/18 02:03 11/28/18 02:03 Labs: Short CBC 11/27/18 11/28/18 Range/Units 11:57 02:03 WBC 9.0 8.5 (4.3-11.1) K/mcL Hgb 10.4 L D 9.4 L (12.9-16.9) g/dL Hct 32.5 L 29.1 L (37.5-50.1) % Plt Count 170 157 (140-400) K/mcL Neutrophils # 5.7 (1.6-8.9) K/mcL BMP 11/28/18 02:03 Sodium 142 Potassium 3.4 L Chloride 112 H Carbon Dioxide 22 L BUN 12 Creatinine 0.91 Glucose 105 Calcium 8.3 L - ABG Interpretation ABG results: PT/INR, D-dimer PT 18.7 Seconds (9.4-12.1) H 11/28/18 02:03 - Impressions Impressions Knee X-Ray 11/27/18 20:42 IMPRESSION: Status post left knee arthroplasty, without gross fracture. D/ / Juan A Washington MD / Juan A Washington MD Interpreting Provider: Juan A Washington MD Consult Discharge Plan - Plan Referrals: Judy Morgan, [employer] [Primary Care Provider] - (1) Sepsis Qualifiers: Sepsis type: sepsis due to unspecified organism Sepsis acute organ dysfunction status: with acute organ dysfunction Acute respiratory failure type: with hypoxia Severe sepsis shock status: with septic shock (2) Pneumonia Qualifiers: Pneumonia type: due to unspecified organism Laterality: unspecified laterality Lung location: unspecified part of lung Qualified Code(s): J18.9 - Pneumonia, unspecified organism (6) Diabetes Qualifiers: Diabetes mellitus type: type 2 Diabetes mellitus rodent exterminator insulin use: without rodent exterminator use Diabetes mellitus complication status: with kidney complications Diabetes mellitus complication detail: with chronic kidney disease Chronic kidney disease stage: stage 3 (moderate) Qualified Code(s): E11.22 - Type 2 diabetes mellitus with diabetic chronic kidney disease; N18.3 - Chronic kidney disease, stage 3 (moderate)
[2018-11-28] MEDS ORDERED: Lidocaine -MPF 2% 2 ML VIAL ONE (12:55)
[2018-11-28] MEDS ORDERED: *HR* Propofol 200 MG/20 ML VIAL IVP ONE (12:55)
--- NOTE | 2018-11-28 12:57 | Anesthesia Evaluation PreOp ---
Date of Encounter: 11/28/18 Time of Encounter: 12:55 - Past History Planned Operation: push enteroscopy Cardiac History: [place], CHF, HTN, Hyperlipidemia, Cardiac Surgery (CABG x 2), Cardiac Stent (x 5), Pacemaker/ICD (medtronic pacer/AICD), Other (ischemic cardiomyopathy,PVD) Pulmonary History: MARGY Dx (uses CPAP) CLERK RATING History: TIA Other Medical History: Renal (CKD stage 3), Diabetes Type II, GERD, Other ([place]'s) Anesthesia History: No Prior Anesthetic Complications, Past Anesthesia Alcohol Use: none Drug use: none Medications and Allergies B2/Vits A,C,E/Lut/Zeaxanth/Min [Icaps Tablet] 1 tab PO DAILY 10/19/15 [History] Carvedilol 12.5 mg PO BID 10/19/15 [History] Ezetimibe [Zetia] 10 mg PO DAILY 10/19/15 [History] Finasteride [Proscar] 5 mg PO DAILY 10/19/15 [History] Furosemide [Lasix] 40 mg PO DAILY 10/19/15 [History] Gabapentin [Neurontin] 300 mg PO BID 10/19/15 [History] Loratadine [Claritin] 10 mg PO DAILY 10/19/15 [History] Nitroglycerin [Nitrostat] 0.4 mg SL Q5M PRN MDD 3 doses/15mins 10/19/15 [History] Oxycodone HCl/Acetaminophen [Percocet 5-325 mg Tablet] 1 each PO Q6H PRN 10/19/15 [History] Pantoprazole Sodium [Protonix] 40 mg PO DAILY 10/19/15 [History] Pravastatin Sodium [Pravachol] 40 mg PO DAILY 10/19/15 [History] Tamsulosin [Flomax] 0.4 mg PO HS 10/19/15 [History] metFORMIN [Glucophage] 500 mg PO DAILY 10/19/15 [History] Aspirin 81 mg PO DAILY #30 tab.chew 10/22/15 [Rx] Potassium Chloride [Klor-Con] 20 meq PO BID 06/12/18 [History] Sacubitril/Valsartan 24/26 MG [Entresto 24 mg-26 mg Tablet] 1 tab PO BID 06/12/18 [History] Ferrous Sulfate [Iron] 325 mg PO BID 11/24/18 [History] Warfarin Sodium 5.5 mg PO DAILY 11/25/18 [History] Entresto 24 mg-26 mg Tablet 24 - 26 mg PO BID 11/26/18 [History] Allergy/AdvReac Type Severity Reaction Status Date / Time levofloxacin [From Levaquin] Allergy See Verified 11/25/18 10:09 Comments lisinopril Allergy See Verified 11/25/18 10:09 Comments atorvastatin [From Lipitor] AdvReac Muscle Pain Verified 11/25/18 10:09 metoclopramide AdvReac Confusion Verified 11/25/18 10:09 simvastatin [From Zocor] AdvReac Muscle Pain Verified 11/25/18 10:09 - Meds/Allergy Pre-op Review Medications Reviewed: Yes Allergies Reviewed: Yes Beta Blockers on Current Med List: Yes (coreg ) Anesthesia Results - Labs 11/28/18 02:03 11/28/18 02:03 - Imaging EKG: report reviewed Additional studies: 11/25/2018 echocardiogram Impressions: LVEF 45-50%. Mild segmental left ventricular systolic dysfunction. Mild left ventricular diastolic dysfunction. Normal right ventricular structure and function. Moderately dilated left atrium. Mild-moderate aortic regurgitation. Mild tricuspid regurgitation. No pulmonary hypertension. External compression of left atrium, dilated descending aorta or hiatal hernia. Recommend CT for further evaluation. Ordering physician notified via [facility]. Anesthesia Exam Vital Signs/O2 Sat/Glucose, Most Recent Temp Pulse Resp BP Pulse Ox 98.3 F 89 15 145/74 98 11/28/18 11:52 11/28/18 11:52 11/28/18 11:52 11/28/18 11:52 11/28/18 11:52 Blood Glucose* 89 Weight: 69 kg NPO (# of Hours): > 8 hr - HEENT Pupil (Motor): Pupils equal Mallampati: II Teeth: Normal Oral Opening: Greater than 3 - CLERK RATING LOC: Oriented CLERK RATING Motor: Normal RUE, Normal LUE, Normal RLE, Normal LLE, Normal Face CLERK RATING Sensory: Normal: RUE, LUE, RLE, LLE, Face - Cardiac Rhythm: Regular Murmur: None - Pulmonary Breath Sounds: bilateral Clear Respiratory Effort: Symmetrical Anesthesia Assess/Plan ASA Score: 4 Level of consciousness: Cooperative, Oriented Anesthetic Plan: MAC Monitoring Plan: Standard Monitors Recovery Plan: PACU
[2018-11-29 04:14] LABS: INR 1.6; Prothrombin Time 18.7 Seconds (9.4-12.1)
[2018-11-29 04:24] LABS: BUN/Creatinine Ratio 12 (6-26); Blood Urea Nitrogen 11 mg/dL (8-23); Calcium 8.5 mg/dL (8.6-10.3); Carbon Dioxide 22 mEq/L (23-29); Chloride 113 mEq/L (98-107); Glucose 99 mg/dL (70-105); Osmolality,Calculated 293 (280-300); Potassium 3.9 mEq/L (3.5-5.1); Sodium 142 mEq/L (136-145); eGFR For African Americans > 60 (> 60); eGFR For Non-African Americans > 60 (> 60)
[2018-11-29] MEDS ORDERED: Doxycycline 100 MG VIAL ONE (05:18)
[2018-11-29] MEDS: Doxycycline 100 MG in 0.9 % Sodium Chloride Mini Bag 100 ML IVPB SCH (05:20)
[2018-11-29] MEDS: Insulin LISPRO 300 UNITS/3 ML VIAL SQ SCH ×2 (08:22→12:04)
[2018-11-29] MEDS: Loratadine 10 MG TABLET PO SCH (08:34)
[2018-11-29] MEDS: Aspirin 81 MG TAB.CHEW PO SCH (08:34)
[2018-11-29] MEDS: Gabapentin 300 MG CAPSULE PO SCH (08:34)
[2018-11-29] MEDS: Furosemide 40 MG TABLET PO SCH (08:34)
[2018-11-29] MEDS: Finasteride 5 MG TABLET PO SCH (08:34)
[2018-11-29] MEDS: Pravastatin Sodium [Pravachol] 40 MG PO SCH (08:35)
[2018-11-29] MEDS: cefTRIAXone 2,000 MG in 0.9 % Sodium Chloride Mini Bag 100 ML IVPB SCH (08:37)
[2018-11-29 10:36] LABS: Basophils # 0.1 K/mcL (0.0-0.2); Basophils % 0.7 %; Eosinophils # 0.6 K/mcL (0.0-0.6); Eosinophils % 9.1 %; Hematocrit 29.2 % (37.5-50.1); Hemoglobin 9.1 g/dL (12.9-16.9); Immature Granulocytes % 0.3 % (0-4); Lymphocytes # 1.8 K/mcL (0.6-4.6); Lymphocytes % 25.7 %; Mean Corpuscular HGB Conc 31.2 g/dL (31.6-35.5); Mean Corpuscular Hemoglobin 29.8 pg (28.0-33.3); Mean Corpuscular Volume 95.7 fL (83.0-100.0); Mean Platelet Volume 10.7 fL (9.4-12.4); Monocytes # 0.6 K/mcL (0.0-1.3); Monocytes % 8.8 %; Neutrophils # 3.8 K/mcL (1.6-8.9); Platelet Count 166 K/mcL (140-400); Red Blood Count 3.05 M/mcL (4.19-5.50); Red Cell Distribution Width 14.6 % (11.5-14.5); Segmented Neutrophils % 55.4 %; White Blood Count 6.9 K/mcL (4.3-11.1)
[2018-11-29] MEDS ORDERED: Cyanocobalamin (B-12) 1,000 MCG/ML VIAL IM ONE (10:43)
--- NOTE | 2018-11-29 10:53 | Discharge Summary ---
- NOTES TO OUTPATIENT PROVIDER Notes to Outpatient Provider: Presented with AMS, sepsis, diagnised with PNA. 10 days of antibiotics. Also complaint of bleeding, got endoscopy and colonoscopy, no stigmata of bleeidng, but Schatzi ring and atrophic gastritis, samples collected. Needs follow up wiht the GI. Orders not resulted at time of discharge: Pending orders 11/24/18 17:31 Culture,Blood [BC] Stat 11/28/18 13:43 Surgical Pathology [PTH] Routine Date of Encounter: 11/29/18 Time of Encounter: 08:00 - Discharge Diagnosis (1) Sepsis Priority: Primary Status: Acute Qualifiers: Sepsis type: sepsis due to unspecified organism Sepsis acute organ dysfunction status: with acute organ dysfunction Acute respiratory failure type: with hypoxia Severe sepsis shock status: with septic shock Qualified Code(s): A41.9 - Sepsis, unspecified organism; R65.21 - Severe sepsis with septic shock; J96.01 - Acute respiratory failure with hypoxia (2) Pneumonia Priority: Secondary Status: Acute Qualifiers: Pneumonia type: due to unspecified organism Laterality: unspecified laterality Lung location: unspecified part of lung Qualified Code(s): J18.9 - Pneumonia, unspecified organism (3) Black stool Priority: Secondary Status: Acute (4) LGI bleed Priority: Secondary Status: Acute (5) CKD (chronic kidney disease) stage 3, GFR 30-59 ml/min Priority: Secondary Status: Chronic (6) Diabetes Priority: Secondary Status: Chronic Qualifiers: Diabetes mellitus type: type 2 Diabetes mellitus mcc insulin use: without exterminator helper termite use Diabetes mellitus complication status: with kidney complications Diabetes mellitus complication detail: with chronic kidney disease Chronic kidney disease stage: stage 3 (moderate) Qualified Code(s): E11.22 - Type 2 diabetes mellitus with diabetic chronic kidney disease; N18.3 - Chronic kidney disease, stage 3 (moderate) (7) Iron deficiency anemia Priority: Secondary Status: Acute Qualifiers: Iron deficiency anemia type: other iron deficiency Qualified Code(s): D50.8 - Other iron deficiency anemias (8) Acute blood loss anemia Priority: Secondary Status: Acute (9) Hypokalemia Priority: Secondary Status: Acute Hospital course: Mr. Clayton is a 83 year old male with a past medical history significant for coronary artery disease status post CABG, ischemic myopathy, diabetes mellitus, hypertension, presented to the hospital because of the mental status. Patient was diagnosed with sepsis and pneumonia. He was treated with IV antibiotics. Sputum cultures yielded MRSA and E. Coli. is being discharged on doxycycline and cefdinir for 5 more days to complete 10 days course. Patient also complained of black stools. Hemoglobin remained stable around 9. He got the endoscopy and colonoscopy yesterday. Endoscopy revealed benign- appearing, nonobstructive Schatzki ring at GE junction, small hiatal hernia, diffuse atrophic mucosa which was biopsied. Otherwise normal. Colonoscopy revealed diverticulosis and internal hemorrhoids. Patient is currently on Protonix which will be continued. He will be restarted back on his Coumadin which was on hold because of concerns of GI bleed. Discussed with GI. Patient is currently hemodynamically stable. He denies chest pain, shortness of breath, fever, chills, rigors, black stools. Discussed with the patient daughter regarding the discharge plan. Discussed with the daughter that the patient needs follow-up with GI as an outpatient. On the request of daughter, he was also given vitamin B12 shot whihc he was suppsed to get on sunday but could not as he was in hospital. Pt was weak and PT/OT recommended home health nad PT/OT. Will be ordered. Pt being discharged in stable condition. - Time Spent with Patient Total time spent providing and/or coordinating discharge services: 45 minutes - Discharge Medications Prescriptions: New Doxycycline 100 mg PO BID 5 Days #10 capsule Cefdinir [Omnicef] 300 mg PO BID 5 Days #10 capsule Continued metFORMIN [Glucophage] 500 mg PO DAILY Tamsulosin [Flomax] 0.4 mg PO HS Loratadine [Claritin] 10 mg PO DAILY Nitroglycerin [Nitrostat] 0.4 mg SL Q5M PRN MDD 3 doses/15mins PRN Reason: Chest Pain Oxycodone HCl/Acetaminophen [Percocet 5-325 mg Tablet] 1 each PO Q6H PRN PRN Reason: Pain Ezetimibe [Zetia] 10 mg PO DAILY B2/Vits A,C,E/Lut/Zeaxanth/Min [Icaps Tablet] 1 tab PO DAILY Carvedilol 12.5 mg PO BID Furosemide [Lasix] 40 mg PO DAILY Finasteride [Proscar] 5 mg PO DAILY Pravastatin Sodium [Pravachol] 40 mg PO DAILY Pantoprazole Sodium [Protonix] 40 mg PO DAILY Gabapentin [Neurontin] 300 mg PO BID Aspirin 81 mg PO DAILY #30 tab.chew Potassium Chloride [Klor-Con] 20 meq PO BID Ferrous Sulfate [Iron] 325 mg PO BID Warfarin Sodium 5.5 mg PO DAILY Entresto 24 mg-26 mg Tablet 24 - 26 mg PO BID Discontinued Sacubitril/Valsartan 24/26 MG [Entresto 24 mg-26 mg Tablet] 1 tab PO BID Home Medications: B2/Vits A,C,E/Lut/Zeaxanth/Min [Icaps Tablet] 1 tab PO DAILY 10/19/15 [History] Carvedilol 12.5 mg PO BID 10/19/15 [History] Ezetimibe [Zetia] 10 mg PO DAILY 10/19/15 [History] Finasteride [Proscar] 5 mg PO DAILY 10/19/15 [History] Furosemide [Lasix] 40 mg PO DAILY 10/19/15 [History] Gabapentin [Neurontin] 300 mg PO BID 10/19/15 [History] Loratadine [Claritin] 10 mg PO DAILY 10/19/15 [History] Nitroglycerin [Nitrostat] 0.4 mg SL Q5M PRN MDD 3 doses/15mins 10/19/15 [History] Oxycodone HCl/Acetaminophen [Percocet 5-325 mg Tablet] 1 each PO Q6H PRN 10/19/15 [History] Pantoprazole Sodium [Protonix] 40 mg PO DAILY 10/19/15 [History] Pravastatin Sodium [Pravachol] 40 mg PO DAILY 10/19/15 [History] Tamsulosin [Flomax] 0.4 mg PO HS 10/19/15 [History] metFORMIN [Glucophage] 500 mg PO DAILY 10/19/15 [History] Aspirin 81 mg PO DAILY #30 tab.chew 10/22/15 [Rx] Potassium Chloride [Klor-Con] 20 meq PO BID 06/12/18 [History] Ferrous Sulfate [Iron] 325 mg PO BID 11/24/18 [History] Warfarin Sodium 5.5 mg PO DAILY 11/25/18 [History] Entresto 24 mg-26 mg Tablet 24 - 26 mg PO BID 11/26/18 [History] Cefdinir [Omnicef] 300 mg PO BID 5 Days #10 capsule 11/29/18 [Rx] Doxycycline 100 mg PO BID 5 Days #10 capsule 11/29/18 [Rx] Allergies/Adverse Reactions: Allergy/AdvReac Type Severity Reaction Status Date / Time levofloxacin [From Levaquin] Allergy See Verified 11/25/18 10:09 Comments lisinopril Allergy See Verified 11/25/18 10:09 Comments atorvastatin [From Lipitor] AdvReac Muscle Pain Verified 11/25/18 10:09 metoclopramide AdvReac Confusion Verified 11/25/18 10:09 simvastatin [From Zocor] AdvReac Muscle Pain Verified 11/25/18 10:09 Date of admission: 11/24/18 20:04 Primary care physician: Judy Morgan CNP Consults: 11/26/18 14:47 Consult to Gastroenterology [CONS] Routine Consulting Provider: [facility] Reason for Consult: anemia; h/o LGI bleed; on coumadin Call Completed: Yes 11/28/18 09:50 Consult to Occupational Therapy [CONS] Routine Comment: Evaluate, develop and implement POC Reason for Consult: Physical deconditioning Does patient have active BEDREST order?: No Is patient medically & hemodynamically stable?: Yes Consult to Physical Therapy [CONS] Routine Comment: Evaluate, develop and implement POC Reason for Consult: Physical deconditioning Does patient have active BEDREST order?: No Is patient medically & hemodynamically stable?: Yes - Constitutional Vitals: Temp Pulse Resp BP Pulse Ox 98.0 F 71 16 148/79 94 11/29/18 07:41 11/29/18 07:41 11/29/18 07:41 11/29/18 07:41 11/29/18 08:55 Exam: General: Alert and oriented but seems confused, no physical distress, able to follow commands. HEENT: No thyromegaly, no lymphadenopathy, no discharge. Eyes: No discharge. Normal conjuctiva, no icterus Respiratory: Mild ronchi in bilateral lungs. No wheezing appreciated CVS: Normal heart sounds, no murmurs, regular rhthm, no edema Extremities: No peripheral edema, peripheral pulses intact. Lymph nodes: No lymphadenopathy Gastrointestinal: Soft, nontender abdomen, normal abdominal sounds. No distention noted. Genitourinary: No paravertebral tenderness. Skin: No rash, ulcers or wound. Neurological: Alert and oriented. No focal deficits. Cranial nerves II-XII intact - Patient Status Disposition: Home Health Service Condition: Fair Overall status at discharge: patient is progressing back to baseline - Discharge Instructions Follow Up With: Judy Morgan CNP [Primary Care Provider] - Igor Bonds MD [Partnered Physician] - - Diet and Activity Activity: as per physical therapy, increase activity as tolerated Diet: advance to your usual diet
--- NOTE | 2018-11-29 11:13 | Physician Discharge Referral ---
Home Health/Hosp Referral Info Transfer to: Home Health Provider in Charge Post Discharge: PCP - Diagnosis (1) Sepsis Priority: Primary Status: Acute (2) Pneumonia Priority: Secondary Status: Acute (3) Black stool Priority: Secondary Status: Acute (4) LGI bleed Priority: Secondary Status: Acute (5) CKD (chronic kidney disease) stage 3, GFR 30-59 ml/min Priority: Secondary Status: Chronic (6) Diabetes Priority: Secondary Status: Chronic (7) Iron deficiency anemia Priority: Secondary Status: Acute (8) Acute blood loss anemia Priority: Secondary Status: Acute (9) Hypokalemia Priority: Secondary Status: Acute - Respiratory Orders Smoking Cessation: Smoking cessation has been advised. For more information, call the [place] Tobacco Quit Line at 2-136-RCYU-NOW. - Services Needed Following services are medically necessary services: Nursing, Physical Therapy, Occupational Therapy - Transfer Medications Prescriptions: Doxycycline 100 mg PO BID 5 Days #10 capsule Transmission Status: Pending to [facility]/pharmacy #[id number] Cefdinir [Omnicef] 300 mg PO BID 5 Days #10 capsule Transmission Status: Pending to [facility]/pharmacy #[id number] Home Medications: B2/Vits A,C,E/Lut/Zeaxanth/Min [Icaps Tablet] 1 tab PO DAILY 10/19/15 [History] Carvedilol 12.5 mg PO BID 10/19/15 [History] Ezetimibe [Zetia] 10 mg PO DAILY 10/19/15 [History] Finasteride [Proscar] 5 mg PO DAILY 10/19/15 [History] Furosemide [Lasix] 40 mg PO DAILY 10/19/15 [History] Gabapentin [Neurontin] 300 mg PO BID 10/19/15 [History] Loratadine [Claritin] 10 mg PO DAILY 10/19/15 [History] Nitroglycerin [Nitrostat] 0.4 mg SL Q5M PRN MDD 3 doses/15mins 10/19/15 [History] Oxycodone HCl/Acetaminophen [Percocet 5-325 mg Tablet] 1 each PO Q6H PRN 10/19/15 [History] Pantoprazole Sodium [Protonix] 40 mg PO DAILY 10/19/15 [History] Pravastatin Sodium [Pravachol] 40 mg PO DAILY 10/19/15 [History] Tamsulosin [Flomax] 0.4 mg PO HS 10/19/15 [History] metFORMIN [Glucophage] 500 mg PO DAILY 10/19/15 [History] Aspirin 81 mg PO DAILY #30 tab.chew 10/22/15 [Rx] Potassium Chloride [Klor-Con] 20 meq PO BID 06/12/18 [History] Ferrous Sulfate [Iron] 325 mg PO BID 11/24/18 [History] Warfarin Sodium 5.5 mg PO DAILY 11/25/18 [History] Entresto 24 mg-26 mg Tablet 24 - 26 mg PO BID 11/26/18 [History] Cefdinir [Omnicef] 300 mg PO BID 5 Days #10 capsule 11/29/18 [Rx] Doxycycline 100 mg PO BID 5 Days #10 capsule 11/29/18 [Rx] Allergies/Adverse Reactions: Allergy/AdvReac Type Severity Reaction Status Date / Time levofloxacin [From Levaquin] Allergy See Verified 11/25/18 10:09 Comments lisinopril Allergy See Verified 11/25/18 10:09 Comments atorvastatin [From Lipitor] AdvReac Muscle Pain Verified 11/25/18 10:09 metoclopramide AdvReac Confusion Verified 11/25/18 10:09 simvastatin [From Zocor] AdvReac Muscle Pain Verified 11/25/18 10:09 Certification: Further, I certify that my clinical findings support that this patient is homebound (i.e. absences from home require considerable and taxing effort and are for medical reasons or [employer] [facility] or infrequently or short duration when for other reasons) because: Homebound Reason: Patient requires assistance of a person or device to safely leave home Attestation: My signature below is to certify that this patient is under my care and that I, or nurse practitioner, or a physician's quality assistant working with me, has a [id number] encounter with this patient.
[2018-11-29 11:38] VITALS: BP 141/75
[2018-11-29] MEDS ORDERED: FLU Vac QV 19-20 (6Month+)/PF 0.5 ML SYRINGE IM ONE (11:54)
[2018-11-29] MEDS ORDERED: Ferumoxytol 510 MG in 0.9 % Sodium Chloride 100 ML IVPB ONE (15:10)
== END 2018-11-29 16:09 | disposition home health service (06) | DRG 871 ==
LOC: ICNU 17:04 → EMEROOARM 17:04 → SUATTDRO 20:04 → ICNU 20:42 → 2ANU 11-26 22:34
PROVIDERS: ADMIT Internal Medicine; ATTEND Internal Medicine

== ENCOUNTER 2019-01-29 00:17 | Observation (INO) ==
[2019-01-29] MEDS ORDERED: *HR* HYDROcodone/Acet 5/325 mg TABLET PO ONE (02:09)
[2019-01-29 07:50] LABS: Basophils # 0.1 K/mcL (0.0-0.2); Basophils % 0.7 %; Eosinophils # 0.5 K/mcL (0.0-0.6); Eosinophils % 6.8 %; Hematocrit 29.9 % (37.5-50.1); Hemoglobin 9.6 g/dL (12.9-16.9); Immature Granulocytes % 0.1 % (0-4); Lymphocytes # 2.2 K/mcL (0.6-4.6); Lymphocytes % 29.7 %; Mean Corpuscular HGB Conc 32.1 g/dL (31.6-35.5); Mean Corpuscular Hemoglobin 31.2 pg (28.0-33.3); Mean Corpuscular Volume 97.1 fL (83.0-100.0); Mean Platelet Volume 9.7 fL (9.4-12.4); Monocytes # 0.7 K/mcL (0.0-1.3); Monocytes % 9.8 %; Neutrophils # 3.9 K/mcL (1.6-8.9); Platelet Count 161 K/mcL (140-400); Red Blood Count 3.08 M/mcL (4.19-5.50); Red Cell Distribution Width 15.9 % (11.5-14.5); Segmented Neutrophils % 52.9 %; White Blood Count 7.3 K/mcL (4.3-11.1)
[2019-01-29 07:56] LABS: INR 1.5
[2019-01-29 08:08] LABS: Calcium 8.5 mg/dL (8.6-10.3); Potassium 4.6 mEq/L (3.5-5.1)
[2019-01-29] MEDS ORDERED: *HR* OxyCODONE/APAP 7.5/325 TABLET PO ONE (08:20)
[2019-01-29] MEDS ORDERED: Ondansetron 4 MG/2 ML VIAL IVP PRN (08:47)
[2019-01-29] MEDS ORDERED: Naloxone 0.4 MG/ML INJ IVP PRN (08:47)
[2019-01-29] MEDS ORDERED: 0.9 % Sodium Chloride 1,000 ML IVC SCH (09:00)
[2019-01-29] MEDS ORDERED: Nitroglycerin 0.4 MG TAB.SUBL SL PRN (09:14)
[2019-01-29] MEDS ORDERED: Sacubitril/Valsartan 24/26 MG 1 TABLET PO SCH (09:15)
[2019-01-29] MEDS ORDERED: Trolamine Salicylate/Aloe Vera 85 APPL/85 GM TUBE TP PRN (09:55)
[2019-01-29] MEDS: Gabapentin 300 MG CAPSULE PO SCH ×2 (10:49→20:58)
[2019-01-29] MEDS: *HR* OxyCODONE/APAP 5/325 TABLET PO PRN (15:05)
[2019-01-29] MEDS ORDERED: *HR* Warfarin 3 MG TABLET PO ONE (18:00)
[2019-01-29] MEDS ORDERED: Warfarin perPT PO PRN (18:00)
[2019-01-30 04:40] LABS: Basophils # 0.1 K/mcL (0.0-0.2); Basophils % 0.7 %; Eosinophils # 0.4 K/mcL (0.0-0.6); Eosinophils % 5.1 %; Hemoglobin 9.7 g/dL (12.9-16.9); Immature Granulocytes % 0.2 % (0-4); Mean Corpuscular HGB Conc 31.3 g/dL (31.6-35.5); Mean Corpuscular Hemoglobin 31.4 pg (28.0-33.3); Mean Corpuscular Volume 100.3 fL (83.0-100.0); Mean Platelet Volume 10.4 fL (9.4-12.4); Monocytes # 0.7 K/mcL (0.0-1.3); Monocytes % 8.1 %; Neutrophils # 5.5 K/mcL (1.6-8.9); Platelet Count 161 K/mcL (140-400); Red Blood Count 3.09 M/mcL (4.19-5.50); Red Cell Distribution Width 15.7 % (11.5-14.5); Segmented Neutrophils % 62.9 %; White Blood Count 8.7 K/mcL (4.3-11.1)
[2019-01-30 04:41] LABS: INR 1.7; Prothrombin Time 18.8 Seconds (9.4-12.1)
[2019-01-30 05:03] LABS: Calcium 8.5 mg/dL (8.6-10.3); Potassium 4.8 mEq/L (3.5-5.1)
[2019-01-30] MEDS ORDERED: Gabapentin 300 MG CAPSULE PO SCH (09:00)
[2019-01-30] MEDS ORDERED: Finasteride 5 MG TABLET PO SCH (09:00)
[2019-01-30] MEDS ORDERED: NON-FORMULARY MEDICATION 1 EACH EACH (Ezetimibe [Zetia] 10 MG) PO SCH (09:00)
[2019-01-30] MEDS ORDERED: NON-FORMULARY MEDICATION 1 EACH EACH (Pantoprazole Sodium [Protonix] 40 MG) PO SCH (09:00)
[2019-01-30] MEDS: Aspirin 81 MG TAB.CHEW PO SCH (09:15)
[2019-01-30] MEDS: Sacubitril/Valsartan 24/26 MG 1 TABLET PO SCH ×2 (09:15→20:57)
[2019-01-30] MEDS: Finasteride 5 MG TABLET PO SCH (09:15)
[2019-01-30] MEDS: Loratadine 10 MG TABLET PO SCH (09:16)
[2019-01-30] MEDS: *HR* OxyCODONE/APAP 5/325 TABLET PO PRN (09:16)
[2019-01-30] MEDS ORDERED: *HR* Warfarin 4 MG TABLET PO ONE (11:38)
[2019-01-30] MEDS: Gabapentin 300 MG CAPSULE PO SCH ×2 (17:23→20:57)
[2019-01-30] MEDS ORDERED: *HR* Warfarin 3 MG TABLET PO ONE (18:00)
[2019-01-31 06:40] LABS: INR 1.6; Prothrombin Time 17.7 Seconds (9.4-12.1)
[2019-01-31 06:55] LABS: Calcium 8.3 mg/dL (8.6-10.3); Potassium 4.4 mEq/L (3.5-5.1)
[2019-01-31 07:00] VITALS: BP 126/73
[2019-01-31] MEDS: Sacubitril/Valsartan 24/26 MG 1 TABLET PO SCH (08:22)
[2019-01-31] MEDS: Loratadine 10 MG TABLET PO SCH (08:24)
[2019-01-31] MEDS: Finasteride 5 MG TABLET PO SCH (08:24)
[2019-01-31] MEDS: Aspirin 81 MG TAB.CHEW PO SCH (08:24)
[2019-01-31] MEDS: Gabapentin 300 MG CAPSULE PO SCH (08:25)
== END 2019-01-31 09:52 | disposition home or self-care (01) ==
LOC: EMEROOARM 00:17 → 3NENU 00:17 → SUATTDRO 03:25 → 3NENU 04:54
PROVIDERS: ADMIT Family Medicine; ATTEND Internal Medicine

== ENCOUNTER 2020-02-08 12:03 | Inpatient (IN) ==
[2020-02-08] MEDS ORDERED: Ipratropium/Albuterol Neb 3 ML IH ONE (12:16)
[2020-02-08 13:22] LABS: Basophils # 0.1 K/mcL (0.0-0.2); Basophils % 0.7 %; Eosinophils # 0.8 K/mcL (0.0-0.6); Eosinophils % 9.3 %; Hematocrit 37.8 % (37.5-50.1); Hemoglobin 12.2 g/dL (12.9-16.9); Immature Granulocytes % 0.1 % (0-4); Lymphocytes # 1.3 K/mcL (0.6-4.6); Lymphocytes % 15.8 %; Mean Corpuscular HGB Conc 32.3 g/dL (31.6-35.5); Mean Corpuscular Hemoglobin 30.6 pg (28.0-33.3); Mean Corpuscular Volume 94.7 fL (83.0-100.0); Mean Platelet Volume 9.8 fL (9.4-12.4); Monocytes # 0.8 K/mcL (0.0-1.3); Monocytes % 9.6 %; Neutrophils # 5.5 K/mcL (1.6-8.9); Platelet Count 222 K/mcL (140-400); Red Blood Count 3.99 M/mcL (4.19-5.50); Red Cell Distribution Width 14.4 % (11.5-14.5); Segmented Neutrophils % 64.5 %; White Blood Count 8.5 K/mcL (4.3-11.1)
[2020-02-08] MEDS ORDERED: Azithromycin 500 MG in 0.9 % Sodium Chloride 250 ML IVPB ONE (13:23)
[2020-02-08] MEDS ORDERED: cefTRIAXone 1,000 MG in Water for inj. (sterile) 10 ML IVP ONE (13:23)
[2020-02-08 13:27] LABS: INR 1.5; Prothrombin Time 16.8 Seconds (9.4-12.1)
[2020-02-08 13:30] LABS: Activated Partial Thrombo Time 40.5 Seconds (26.0-36.0)
[2020-02-08 13:41] LABS: BUN/Creatinine Ratio 23 (6-26); Blood Urea Nitrogen 37 mg/dL (8-23); Calcium 9.7 mg/dL (8.6-10.3); Carbon Dioxide 23 mEq/L (23-29); Chloride 104 mEq/L (98-107); Glucose 158 mg/dL (70-105); Osmolality,Calculated 300 (280-300); Potassium 4.2 mEq/L (3.5-5.1); Sodium 139 mEq/L (136-145); Troponin I < 0.03 ng/mL (< 0.04); eGFR For African Americans 51 (> 60); eGFR For Non-African Americans 42 (> 60)
[2020-02-08 13:57] LABS: Adenovirus Not Detected (Not Detect); Bordetella Pertussis Not Detected (Not Detect); Chlamydophila pneumoniae Not Detected (Not Detect); Coronavirus 229E Not Detected (Not Detect); Coronavirus HKU1 Not Detected (Not Detect); Coronavirus NL63 Not Detected (Not Detect); Coronavirus OC43 Not Detected (Not Detect); Human Metapneumovirus Not Detected (Not Detect); Human Rhinovirus/Enterovirus Not Detected (Not Detect); Influenza A Subtype 2009 H1 Not Detected (Not Detect); Influenza B Not Detected (Not Detect); Mycoplasma pneumoniae Not Detected (Not Detect); Parainfluenza Virus 1 Not Detected (Not Detect); Parainfluenza Virus 2 Not Detected (Not Detect); Parainfluenza Virus 3 Not Detected (Not Detect); Parainfluenza Virus 4 Not Detected (Not Detect); Respiratory Syncytial Virus Not Detected (Not Detect); SARS-CoV-2 Not Detected (Not Detect)
[2020-02-08] MEDS ORDERED: Ondansetron 4 MG/2 ML VIAL IVP PRN (15:26)
[2020-02-08] MEDS ORDERED: Naloxone 0.4 MG/ML INJ IVP PRN (15:26)
[2020-02-08] MEDS ORDERED: Dextrose Gel 15 GM/37.5 ML TUBE PO PRN ×2 (15:57)
[2020-02-08] MEDS ORDERED: *HR* Dextrose 50 % in Water (Vial) 50 ML VIAL IVP PRN (15:57)
[2020-02-08] MEDS ORDERED: D5% in Water 1,000 ML IVC PRN (15:57)
[2020-02-08] MEDS ORDERED: cefTRIAXone 1,000 MG in Water for inj. (sterile) 20 ML IVP SCH (16:00)
[2020-02-08] MEDS: Insulin LISPRO 300 UNITS/3 ML VIAL SQ SCH ×2 (16:45→21:07)
[2020-02-08] MEDS: *HR* OxyCODONE/APAP 5/325 TABLET PO PRN (17:01)
[2020-02-08] MEDS: Ipratropium/Albuterol Neb 3 ML IH SCH ×2 (17:37→22:05)
[2020-02-08] MEDS: carvediloL 6.25 MG TABLET PO SCH (21:11)
[2020-02-08] MEDS: Sacubitril/Valsartan 24/26 MG 1 TABLET PO SCH (21:12)
[2020-02-09 03:00] LABS: Basophils # 0.1 K/mcL (0.0-0.2); Basophils % 0.6 %; Eosinophils # 0.9 K/mcL (0.0-0.6); Eosinophils % 10.1 %; Hematocrit 36.2 % (37.5-50.1); Hemoglobin 11.6 g/dL (12.9-16.9); Immature Granulocytes % 0.2 % (0-4); Lymphocytes # 1.8 K/mcL (0.6-4.6); Lymphocytes % 20.6 %; Mean Corpuscular Hemoglobin 29.9 pg (28.0-33.3); Mean Corpuscular Volume 93.3 fL (83.0-100.0); Mean Platelet Volume 9.5 fL (9.4-12.4); Monocytes # 0.9 K/mcL (0.0-1.3); Monocytes % 10.3 %; Platelet Count 217 K/mcL (140-400); Red Blood Count 3.88 M/mcL (4.19-5.50); Red Cell Distribution Width 14.5 % (11.5-14.5); Segmented Neutrophils % 58.2 %; White Blood Count 8.5 K/mcL (4.3-11.1)
[2020-02-09 03:15] LABS: Calcium 9.4 mg/dL (8.6-10.3); Potassium 4.4 mEq/L (3.5-5.1)
[2020-02-09] MEDS: Ipratropium/Albuterol Neb 3 ML IH SCH ×4 (03:56→22:05)
[2020-02-09] MEDS: Cholecalciferol (D-3) 1,000 UNIT (25MCG) TABLET PO SCH (08:19)
[2020-02-09] MEDS: carvediloL 6.25 MG TABLET PO SCH ×2 (08:19→17:04)
[2020-02-09] MEDS: Finasteride 5 MG TABLET PO SCH (08:19)
[2020-02-09] MEDS: *HR* Rivaroxaban 15 MG TABLET PO SCH (08:19)
[2020-02-09] MEDS: Aspirin Enteric Coated 81 MG Tablet PO SCH (08:19)
[2020-02-09] MEDS: Sacubitril/Valsartan 24/26 MG 1 TABLET PO SCH (08:19)
[2020-02-09] MEDS: Insulin LISPRO 300 UNITS/3 ML VIAL SQ SCH ×4 (08:20→21:12)
[2020-02-09] MEDS ORDERED: Furosemide 40 MG TABLET PO SCH (09:00)
[2020-02-09] MEDS ORDERED: NON-FORMULARY MEDICATION 1 EACH EACH (Ezetimibe [Zetia] 10 MG) PO SCH (09:00)
[2020-02-09 09:41] LABS: ABG Base Excess 0 mEq/L (-2 to 3); ABG HCO3 24 mEq/L (21-27); ABG Oxygen Saturation 96 % (95-98); ABG PCO2 38 mmHg (35-45); ABG PH 7.41 pH Units (7.32-7.45); ABG PO2 83 mmHg (85-104); ABG TCO2 26 mEq/L (20-26)
[2020-02-09 10:16] LABS: Estimated Average Glucose 160 mg/dl
[2020-02-09] MEDS ORDERED: 0.9 % Sodium Chloride 500 ML IVC SCH (12:00)
[2020-02-09] MEDS ORDERED: Nitroglycerin 0.4 MG TAB.SUBL SL PRN (13:51)
[2020-02-09] MEDS ORDERED: Azithromycin 500 MG in D5% in Water 250 ML IVPB SCH (15:00)
[2020-02-09] MEDS ORDERED: cefTRIAXone 1,000 MG in Water for inj. (sterile) 20 ML IVP SCH (16:00)
[2020-02-09] MEDS: Doxycycline 100 MG in 0.9 % Sodium Chloride Mini Bag 100 ML IVPB SCH (17:04)
[2020-02-09] MEDS: Gabapentin 300 MG CAPSULE PO SCH (20:11)
[2020-02-09] MEDS ORDERED: rOPINIRole 0.25 MG TABLET PO SCH (21:00)
[2020-02-09] MEDS: *HR* OxyCODONE/APAP 5/325 TABLET PO PRN (22:35)
[2020-02-10 02:18] LABS: Hematocrit 36.8 % (37.5-50.1); Hemoglobin 11.9 g/dL (12.9-16.9); Mean Corpuscular HGB Conc 32.3 g/dL (31.6-35.5); Mean Corpuscular Hemoglobin 30.9 pg (28.0-33.3); Mean Corpuscular Volume 95.6 fL (83.0-100.0); Platelet Count 212 K/mcL (140-400); Red Blood Count 3.85 M/mcL (4.19-5.50); Red Cell Distribution Width 14.4 % (11.5-14.5); White Blood Count 8.3 K/mcL (4.3-11.1)
[2020-02-10 02:46] LABS: Calcium 9.4 mg/dL (8.6-10.3); Potassium 4.5 mEq/L (3.5-5.1)
[2020-02-10] MEDS: Ipratropium/Albuterol Neb 3 ML IH SCH ×2 (03:33→09:57)
[2020-02-10] MEDS: Doxycycline 100 MG in 0.9 % Sodium Chloride Mini Bag 100 ML IVPB SCH (06:01)
[2020-02-10] MEDS: Insulin LISPRO 300 UNITS/3 ML VIAL SQ SCH ×2 (07:56→12:29)
[2020-02-10] MEDS: Aspirin Enteric Coated 81 MG Tablet PO SCH (08:05)
[2020-02-10] MEDS: Gabapentin 300 MG CAPSULE PO SCH (08:05)
[2020-02-10] MEDS: *HR* Rivaroxaban 15 MG TABLET PO SCH (08:05)
[2020-02-10] MEDS: carvediloL 6.25 MG TABLET PO SCH (08:05)
[2020-02-10] MEDS: Finasteride 5 MG TABLET PO SCH (08:05)
[2020-02-10] MEDS: Cholecalciferol (D-3) 1,000 UNIT (25MCG) TABLET PO SCH (08:05)
[2020-02-10] MEDS ORDERED: Loratadine 10 MG TABLET PO SCH (09:00)
[2020-02-10] MEDS ORDERED: Fluticasone Propionate Nasal 50 MCG/SPRAY BOTTLE NS SCH (09:00)
[2020-02-10 12:17] VITALS: BP 123/75
[2020-02-21] MEDS ORDERED: Cyanocobalamin (B-12) 1,000 MCG/ML VIAL IM SCH (09:00)
== END 2020-02-10 13:22 | disposition home or self-care (01) | DRG 193 ==
LOC: 2ANU 12:03 → EMEROOARM 12:03 → 2ANU 15:59 → SUATTDRO 02-09 13:34
PROVIDERS: ADMIT Internal Medicine; ATTEND Internal Medicine

== ENCOUNTER 2020-07-06 20:53 | Inpatient (IN) ==
[2020-07-06 23:23] LABS: Basophils # 0.1 K/mcL (0.0-0.2); Basophils % 0.9 %; Eosinophils # 0.4 K/mcL (0.0-0.6); Eosinophils % 4.7 %; Hematocrit 37.6 % (37.5-50.1); Hemoglobin 11.9 g/dL (12.9-16.9); Immature Granulocytes % 0.3 % (0-4); Lymphocytes # 2.7 K/mcL (0.6-4.6); Lymphocytes % 34.2 %; Mean Corpuscular HGB Conc 31.6 g/dL (31.6-35.5); Mean Corpuscular Hemoglobin 31.9 pg (28.0-33.3); Mean Corpuscular Volume 100.8 fL (83.0-100.0); Mean Platelet Volume 10.2 fL (9.4-12.4); Monocytes # 0.8 K/mcL (0.0-1.3); Platelet Count 186 K/mcL (140-400); Red Blood Count 3.73 M/mcL (4.19-5.50); Red Cell Distribution Width 14.6 % (11.5-14.5); Segmented Neutrophils % 49.9 %; White Blood Count 7.9 K/mcL (4.3-11.1)
[2020-07-06 23:32] LABS: INR 1.2; Prothrombin Time 14.3 Seconds (9.4-12.1)
[2020-07-06 23:32] LABS: Bacteria,Urine Few per hpf (None-Few); Bilirubin,Urine Negative (Negative); Blood,Urine Negative (Negative); Clarity,Urine Clear (Clear); Color,Urine Light-Yellow (Yellow); Glucose,Urine (UA) Normal (Normal); Ketones,Urine Negative (Negative); Leukocyte Esterase,Urine Negative (Negative); Nitrite,Urine Negative (Negative); PH,Urine 6.5 pH Units (5.0-8.0); Protein,Urine 30 mg/dL (Neg-Trace); RBC,Urine 0-3 per hpf (0-3); Specific Gravity,Urine 1.022 (1.010-1.025); Squamous Epithelial Cell,Urine Few per hpf (None-Few); Urobilinogen,Urine Normal (Normal); WBC,Urine 0-3 per hpf (0-3)
[2020-07-06 23:47] LABS: BUN/Creatinine Ratio 18 (6-26); Blood Urea Nitrogen 23 mg/dL (8-23); Carbon Dioxide 26 mEq/L (23-29); Chloride 109 mEq/L (98-107); Glucose 122 mg/dL (70-105); Osmolality,Calculated 303 (280-300); Potassium 3.8 mEq/L (3.5-5.1); Sodium 144 mEq/L (136-145); eGFR For African Americans > 60 (> 60); eGFR For Non-African Americans 52 (> 60)
[2020-07-07] MEDS ORDERED: Artificial Tears SOLN 15 ML BOTTLE BOTH EYES PRN (02:21)
[2020-07-07] MEDS ORDERED: Ondansetron 4 MG/2 ML VIAL IVP PRN (02:26)
[2020-07-07] MEDS ORDERED: Naloxone 0.4 MG/ML INJ IVP PRN (02:26)
[2020-07-07] MEDS ORDERED: Acetaminophen 325 MG TABLET PO PRN ×2 (02:26→08:41)
[2020-07-07] MEDS ORDERED: Perflutren Lipid Microsphere 1.3 ML in 0.9 % Sodium Chloride 8.7 ML IVP PRN (02:34)
[2020-07-07 04:26] LABS: Amphetamine Screen,Urine Negative ng/mL (Cutoff=1000); Barbiturate Screen,Urine Negative ng/mL (Cutoff=200); Benzodiazepines Screen,Urine Negative ng/mL (Cutoff=200); Cannabinoid Screen,Urine Negative ng/mL (Cutoff = 50); Cocaine Screen,Urine Negative ng/mL (Cutoff= 300); Opiate Screen,Urine Negative ng/mL (Cutoff=300); Phencyclidine Screen,Urine Negative ng/mL (Cutoff=25)
[2020-07-07 06:20] LABS: BUN/Creatinine Ratio 18 (6-26); Blood Urea Nitrogen 24 mg/dL (8-23); Calcium 9.2 mg/dL (8.6-10.3); Carbon Dioxide 27 mEq/L (23-29); Chloride 110 mEq/L (98-107); Glucose 134 mg/dL (70-105); Osmolality,Calculated 304 (280-300); Potassium 3.7 mEq/L (3.5-5.1); Sodium 144 mEq/L (136-145); eGFR For African Americans > 60 (> 60); eGFR For Non-African Americans 52 (> 60)
[2020-07-07] MEDS ORDERED: carvediloL 6.25 MG TABLET PO SCH ×2 (08:00→17:00)
[2020-07-07] MEDS: Sacubitril/Valsartan 24/26 MG 1 TABLET PO SCH ×3 (09:00→21:49)
[2020-07-07] MEDS: Aspirin Enteric Coated 81 MG Tablet PO SCH ×2 (09:00→09:14)
[2020-07-07] MEDS ORDERED: (Ezetimibe [Zetia] 10 MG Tablet) PO SCH (09:00)
[2020-07-07] MEDS: Loratadine 10 MG TABLET PO SCH ×2 (09:00→09:14)
[2020-07-07] MEDS ORDERED: Apixaban 5 MG TABLET PO SCH (09:00)
[2020-07-07] MEDS: Fluticasone Propionate Nasal 50 MCG/SPRAY BOTTLE NS SCH (09:14)
[2020-07-07] MEDS: Finasteride 5 MG TABLET PO SCH (09:14)
[2020-07-07 13:10] LABS: VBG HCO3 24 mEq/L (21-27); VBG PCO2 36 mmHg (41-51); VBG PH 7.43 pH Units (7.32-7.42); VBG PO2 70 mmHg (25-50)
[2020-07-07] MEDS ORDERED: Gadolinium Contrast Agent (WT Based) IV PRN (13:19)
[2020-07-07] MEDS: Metoprolol XL (24 HR) Succ 25 MG TAB.ER.24H PO SCH (17:30)
[2020-07-07] MEDS ORDERED: rOPINIRole 0.25 MG TABLET PO SCH (21:00)
[2020-07-07] MEDS: Melatonin 3 MG TABLET PO PRN (21:49)
[2020-07-07] MEDS: Apixaban 2.5 MG TABLET PO SCH (21:57)
[2020-07-08 05:35] LABS: Basophils % 0.4 %; Eosinophils # 0.3 K/mcL (0.0-0.6); Eosinophils % 2.9 %; Hematocrit 38.7 % (37.5-50.1); Hemoglobin 12.6 g/dL (12.9-16.9); Immature Granulocytes % 0.2 % (0-4); Lymphocytes % 22.4 %; Mean Corpuscular HGB Conc 32.6 g/dL (31.6-35.5); Mean Corpuscular Hemoglobin 32.1 pg (28.0-33.3); Mean Corpuscular Volume 98.7 fL (83.0-100.0); Mean Platelet Volume 10.2 fL (9.4-12.4); Monocytes # 0.8 K/mcL (0.0-1.3); Monocytes % 8.3 %; Neutrophils # 5.9 K/mcL (1.6-8.9); Platelet Count 196 K/mcL (140-400); Red Blood Count 3.92 M/mcL (4.19-5.50); Segmented Neutrophils % 65.8 %
[2020-07-08 05:54] LABS: BUN/Creatinine Ratio 17 (6-26); Blood Urea Nitrogen 20 mg/dL (8-23); Calcium 9.4 mg/dL (8.6-10.3); Carbon Dioxide 24 mEq/L (23-29); Chloride 110 mEq/L (98-107); Glucose 141 mg/dL (70-105); Osmolality,Calculated 299 (280-300); Potassium 3.4 mEq/L (3.5-5.1); Sodium 142 mEq/L (136-145); eGFR For African Americans > 60 (> 60); eGFR For Non-African Americans > 60 (> 60)
[2020-07-08] MEDS ORDERED: Potassium Chloride Elixir 20 MEQ/15 ML UDC PO ONE (08:53)
[2020-07-08] MEDS: Finasteride 5 MG TABLET PO SCH (10:56)
[2020-07-08] MEDS: Sacubitril/Valsartan 24/26 MG 1 TABLET PO SCH ×2 (10:56→22:29)
[2020-07-08] MEDS: Metoprolol XL (24 HR) Succ 25 MG TAB.ER.24H PO SCH (10:56)
[2020-07-08] MEDS: Aspirin Enteric Coated 81 MG Tablet PO SCH (10:56)
[2020-07-08] MEDS: Furosemide 40 MG TABLET PO SCH (10:57)
[2020-07-08] MEDS: Fluticasone Propionate Nasal 50 MCG/SPRAY BOTTLE NS SCH (10:57)
[2020-07-08] MEDS: Loratadine 10 MG TABLET PO SCH (10:57)
[2020-07-08] MEDS: Apixaban 2.5 MG TABLET PO SCH ×2 (10:57→22:28)
[2020-07-08 14:32] LABS: Estimated Average Glucose 160 mg/dl; Hemoglobin A1C 7.2 %
[2020-07-08] MEDS ORDERED: I-CAPS PO SCH (21:00)
[2020-07-08] MEDS: ZETIA 10MG PO SCH (22:26)
[2020-07-09 02:31] LABS: Basophils % 0.4 %; Eosinophils # 0.3 K/mcL (0.0-0.6); Eosinophils % 2.8 %; Hematocrit 40.1 % (37.5-50.1); Hemoglobin 13.1 g/dL (12.9-16.9); Immature Granulocytes % 0.3 % (0-4); Lymphocytes # 1.6 K/mcL (0.6-4.6); Lymphocytes % 16.8 %; Mean Corpuscular HGB Conc 32.7 g/dL (31.6-35.5); Mean Platelet Volume 10.5 fL (9.4-12.4); Monocytes # 0.8 K/mcL (0.0-1.3); Monocytes % 8.7 %; Neutrophils # 6.5 K/mcL (1.6-8.9); Platelet Count 206 K/mcL (140-400); Red Blood Count 4.09 M/mcL (4.19-5.50); Red Cell Distribution Width 14.2 % (11.5-14.5); White Blood Count 9.2 K/mcL (4.3-11.1)
[2020-07-09 02:41] LABS: INR 1.3; Prothrombin Time 15.3 Seconds (9.4-12.1)
[2020-07-09 02:50] LABS: BUN/Creatinine Ratio 16 (6-26); Blood Urea Nitrogen 19 mg/dL (8-23); Calcium 9.4 mg/dL (8.6-10.3); Carbon Dioxide 22 mEq/L (23-29); Chloride 107 mEq/L (98-107); Glucose 162 mg/dL (70-105); Magnesium 1.9 mg/dL (1.6-2.6); Osmolality,Calculated 298 (280-300); Potassium 3.2 mEq/L (3.5-5.1); Sodium 141 mEq/L (136-145); eGFR For African Americans > 60 (> 60); eGFR For Non-African Americans 59 (> 60)
[2020-07-09 02:51] LABS: Chol/HDL Ratio 4.3 (0-4.9)
[2020-07-09] MEDS: Melatonin 3 MG TABLET PO PRN (03:17)
[2020-07-09] MEDS ORDERED: Potassium Chloride Elixir 20 MEQ/15 ML UDC PO ONE (07:36)
[2020-07-09] MEDS: Finasteride 5 MG TABLET PO SCH (09:45)
[2020-07-09] MEDS: Apixaban 2.5 MG TABLET PO SCH ×2 (09:45→21:38)
[2020-07-09] MEDS: Loratadine 10 MG TABLET PO SCH (09:45)
[2020-07-09] MEDS: Furosemide 40 MG TABLET PO SCH (09:45)
[2020-07-09] MEDS: Metoprolol XL (24 HR) Succ 25 MG TAB.ER.24H PO SCH (09:45)
[2020-07-09] MEDS: Aspirin Enteric Coated 81 MG Tablet PO SCH (09:45)
[2020-07-09] MEDS: Sacubitril/Valsartan 24/26 MG 1 TABLET PO SCH ×2 (09:45→21:38)
[2020-07-09] MEDS: I-CAPS PO SCH (09:47)
[2020-07-09] MEDS: Fluticasone Propionate Nasal 50 MCG/SPRAY BOTTLE NS SCH (13:55)
[2020-07-09] MEDS: ZETIA 10MG PO SCH (21:38)
[2020-07-10 01:55] LABS: Basophils # 0.1 K/mcL (0.0-0.2); Basophils % 0.5 %; Eosinophils # 0.4 K/mcL (0.0-0.6); Eosinophils % 3.6 %; Hemoglobin 12.4 g/dL (12.9-16.9); Immature Granulocytes % 0.3 % (0-4); Lymphocytes # 2.8 K/mcL (0.6-4.6); Lymphocytes % 29.3 %; Mean Corpuscular HGB Conc 31.8 g/dL (31.6-35.5); Mean Corpuscular Hemoglobin 31.3 pg (28.0-33.3); Mean Corpuscular Volume 98.5 fL (83.0-100.0); Mean Platelet Volume 10.5 fL (9.4-12.4); Monocytes # 0.9 K/mcL (0.0-1.3); Monocytes % 9.8 %; Neutrophils # 5.4 K/mcL (1.6-8.9); Platelet Count 199 K/mcL (140-400); Red Blood Count 3.96 M/mcL (4.19-5.50); Red Cell Distribution Width 14.5 % (11.5-14.5); Segmented Neutrophils % 56.5 %; White Blood Count 9.6 K/mcL (4.3-11.1)
[2020-07-10 02:13] LABS: Calcium 9.3 mg/dL (8.6-10.3); Magnesium 2.1 mg/dL (1.6-2.6); Potassium 3.8 mEq/L (3.5-5.1)
[2020-07-10] MEDS ORDERED: Ringers Solution, Lactated 1,000 ML IVC SCH (11:45)
[2020-07-10] MEDS: Aspirin Enteric Coated 81 MG Tablet PO SCH (11:46)
[2020-07-10] MEDS: Finasteride 5 MG TABLET PO SCH (11:46)
[2020-07-10] MEDS: Metoprolol XL (24 HR) Succ 25 MG TAB.ER.24H PO SCH (11:46)
[2020-07-10] MEDS: Sacubitril/Valsartan 24/26 MG 1 TABLET PO SCH ×2 (11:46→20:57)
[2020-07-10] MEDS: Loratadine 10 MG TABLET PO SCH (11:46)
[2020-07-10] MEDS: Apixaban 2.5 MG TABLET PO SCH ×2 (11:46→20:57)
[2020-07-10] MEDS: Fluticasone Propionate Nasal 50 MCG/SPRAY BOTTLE NS SCH (11:50)
[2020-07-10] MEDS: I-CAPS PO SCH (11:50)
[2020-07-10 15:44] LABS: Bilirubin,Urine Negative (Negative); Blood,Urine Negative (Negative); Clarity,Urine Clear (Clear); Color,Urine Yellow (Yellow); Glucose,Urine (UA) Normal (Normal); Hyaline Casts,Urine Few per lpf (None Seen); Ketones,Urine Negative (Negative); Leukocyte Esterase,Urine Negative (Negative); Mucus,Urine Few per lpf (None-Few); Nitrite,Urine Negative (Negative); PH,Urine 5.5 pH Units (5.0-8.0); Protein,Urine 30 mg/dL (Neg-Trace); Specific Gravity,Urine 1.025 (1.010-1.025); Urobilinogen,Urine Normal (Normal); WBC,Urine 0-3 per hpf (0-3)
[2020-07-10] MEDS: ZETIA 10MG PO SCH (21:04)
[2020-07-11 07:53] VITALS: BP 143/65
[2020-07-11 08:48] LABS: BUN/Creatinine Ratio 21 (6-26); Blood Urea Nitrogen 24 mg/dL (8-23); Calcium 9.3 mg/dL (8.6-10.3); Carbon Dioxide 24 mEq/L (23-29); Chloride 108 mEq/L (98-107); Glucose 134 mg/dL (70-105); Osmolality,Calculated 298 (280-300); Potassium 3.4 mEq/L (3.5-5.1); Sodium 141 mEq/L (136-145); eGFR For African Americans > 60 (> 60); eGFR For Non-African Americans > 60 (> 60)
[2020-07-11] MEDS ORDERED: Potassium Chloride Elixir 20 MEQ/15 ML UDC PO ONE (11:49)
[2020-07-11] MEDS: Metoprolol XL (24 HR) Succ 25 MG TAB.ER.24H PO SCH (12:03)
[2020-07-11] MEDS: Aspirin Enteric Coated 81 MG Tablet PO SCH (12:03)
[2020-07-11] MEDS: Apixaban 2.5 MG TABLET PO SCH (12:03)
[2020-07-11] MEDS: Finasteride 5 MG TABLET PO SCH (12:03)
[2020-07-11] MEDS: Sacubitril/Valsartan 24/26 MG 1 TABLET PO SCH (12:03)
[2020-07-11] MEDS: Loratadine 10 MG TABLET PO SCH (12:03)
[2020-07-11] MEDS: Fluticasone Propionate Nasal 50 MCG/SPRAY BOTTLE NS SCH (12:04)
[2020-07-11] MEDS: I-CAPS PO SCH (12:04)
== END 2020-07-11 15:50 | disposition home health service (06) | DRG 884 ==
LOC: CDU 20:53 → EMEROOARM 20:53 → SUATTDRO 07-07 02:17 → CDU 07-07 02:46 → 3ANU 07-08 17:27
PROVIDERS: ADMIT Family Medicine; ATTEND Internal Medicine

== ENCOUNTER 2021-02-04 18:03 | Inpatient (IN) ==
[2021-02-04] MEDS ORDERED: 0.9 % Sodium Chloride 500 ML IVC ONE (18:22)
[2021-02-04] MEDS ORDERED: Ipratropium/Albuterol Neb 3 ML IH ONE (18:23)
[2021-02-04 18:54] LABS: Basophils % 0.5 %; Eosinophils # 0.4 K/mcL (0.0-0.6); Eosinophils % 5.4 %; Hematocrit 34.3 % (37.5-50.1); Hemoglobin 10.5 g/dL (12.9-16.9); Immature Granulocytes % 0.1 % (0-4); Lymphocytes # 2.2 K/mcL (0.6-4.6); Lymphocytes % 29.3 %; Mean Corpuscular HGB Conc 30.6 g/dL (31.6-35.5); Mean Corpuscular Hemoglobin 31.5 pg (28.0-33.3); Mean Platelet Volume 10.5 fL (9.4-12.4); Monocytes # 0.7 K/mcL (0.0-1.3); Monocytes % 9.5 %; Neutrophils # 4.1 K/mcL (1.6-8.9); Platelet Count 210 K/mcL (140-400); Red Blood Count 3.33 M/mcL (4.19-5.50); Red Cell Distribution Width 14.8 % (11.5-14.5); Segmented Neutrophils % 55.2 %; White Blood Count 7.5 K/mcL (4.3-11.1)
[2021-02-04 19:01] LABS: INR 1.2; Prothrombin Time 13.8 Seconds (9.4-12.1)
[2021-02-04 19:04] LABS: Activated Partial Thrombo Time 39.5 Seconds (26.0-36.0)
[2021-02-04 19:13] LABS: BUN/Creatinine Ratio 19 (6-26); Blood Urea Nitrogen 25 mg/dL (8-23); Calcium 9.3 mg/dL (8.6-10.3); Carbon Dioxide 26 mEq/L (23-29); Chloride 107 mEq/L (98-107); Glucose 102 mg/dL (70-105); Lipase 33 Units/L (11-82); Osmolality,Calculated 295 (280-300); Potassium 4.3 mEq/L (3.5-5.1); Sodium 140 mEq/L (136-145); Troponin I < 0.03 ng/mL (< 0.04); eGFR For African Americans > 60 (> 60); eGFR For Non-African Americans 50 (> 60)
[2021-02-04 19:14] LABS: Bilirubin,Urine Negative (Negative); Blood,Urine Negative (Negative); Clarity,Urine Clear (Clear); Color,Urine Colorless (Yellow); Glucose,Urine (UA) Normal (Normal); Ketones,Urine Negative (Negative); Leukocyte Esterase,Urine Negative (Negative); Nitrite,Urine Negative (Negative); Protein,Urine Negative (Neg-Trace); Specific Gravity,Urine 1.009 (1.010-1.025); Urobilinogen,Urine Normal (Normal)
[2021-02-04] MEDS ORDERED: Furosemide 20 MG/2 ML VIAL IVP ONE (19:45)
[2021-02-04 19:53] LABS: Adenovirus Not Detected (Not Detect); Bordetella Pertussis Not Detected (Not Detect); Chlamydophila pneumoniae Not Detected (Not Detect); Coronavirus 229E Not Detected (Not Detect); Coronavirus HKU1 Not Detected (Not Detect); Coronavirus NL63 Not Detected (Not Detect); Coronavirus OC43 Not Detected (Not Detect); Human Metapneumovirus Not Detected (Not Detect); Human Rhinovirus/Enterovirus Not Detected (Not Detect); Influenza A Subtype 2009 H1 Not Detected (Not Detect); Influenza B Not Detected (Not Detect); Mycoplasma pneumoniae Not Detected (Not Detect); Parainfluenza Virus 1 Not Detected (Not Detect); Parainfluenza Virus 2 Not Detected (Not Detect); Parainfluenza Virus 3 Not Detected (Not Detect); Parainfluenza Virus 4 Not Detected (Not Detect); Respiratory Syncytial Virus Not Detected (Not Detect); SARS-CoV-2 Not Detected (Not Detect)
[2021-02-04] MEDS ORDERED: Melatonin 3 MG TABLET PO PRN (21:32)
[2021-02-04] MEDS ORDERED: Acetaminophen 325 MG TABLET PO PRN (21:32)
[2021-02-04] MEDS ORDERED: Ondansetron 4 MG/2 ML VIAL IVP PRN (21:32)
[2021-02-04] MEDS ORDERED: Naloxone 0.4 MG/ML INJ IVP PRN (21:32)
[2021-02-05] MEDS ORDERED: Sennosides 8.6 MG TABLET PO PRN (05:31)
[2021-02-05] MEDS ORDERED: Artificial Tears SOLN 15 ML BOTTLE BOTH EYES PRN (05:32)
[2021-02-05] MEDS ORDERED: Perflutren Lipid Microsphere 1.3 ML in 0.9 % Sodium Chloride 8.7 ML IVP PRN (05:37)
[2021-02-05 06:22] LABS: Basophils # 0.1 K/mcL (0.0-0.2); Basophils % 0.7 %; Eosinophils # 0.4 K/mcL (0.0-0.6); Eosinophils % 5.2 %; Hemoglobin 10.4 g/dL (12.9-16.9); Immature Granulocytes % 0.2 % (0-4); Lymphocytes # 2.1 K/mcL (0.6-4.6); Lymphocytes % 26.3 %; Mean Corpuscular HGB Conc 31.5 g/dL (31.6-35.5); Mean Corpuscular Hemoglobin 32.1 pg (28.0-33.3); Mean Corpuscular Volume 101.9 fL (83.0-100.0); Mean Platelet Volume 10.5 fL (9.4-12.4); Monocytes # 0.8 K/mcL (0.0-1.3); Neutrophils # 4.7 K/mcL (1.6-8.9); Platelet Count 224 K/mcL (140-400); Red Blood Count 3.24 M/mcL (4.19-5.50); Red Cell Distribution Width 14.8 % (11.5-14.5); Segmented Neutrophils % 57.6 %; White Blood Count 8.1 K/mcL (4.3-11.1)
[2021-02-05 06:42] LABS: Albumin 3.8 g/dL (3.5-5.7); Albumin/Globulin Ratio 1.4 (1.1-2.2); Bilirubin,Total 0.4 mg/dL (0.3-1.0); Calcium 9.3 mg/dL (8.6-10.3); Globulin 2.7 g/dL (2.4-3.5); Phosphorous 2.9 mg/dL (2.7-4.5); Potassium 3.6 mEq/L (3.5-5.1); Total Protein 6.5 g/dL (6.4-8.9); Troponin I 0.03 ng/mL (< 0.04)
[2021-02-05] MEDS: Sucralfate 1 GM TABLET PO SCH ×2 (07:47→15:46)
[2021-02-05] MEDS: Metoprolol XL (24 HR) Succ 25 MG TAB.ER.24H PO SCH (09:02)
[2021-02-05] MEDS: Aspirin Enteric Coated 81 MG Tablet PO SCH (09:02)
[2021-02-05] MEDS: Furosemide 20 MG/2 ML VIAL IVP SCH (09:02)
[2021-02-05] MEDS: Apixaban 2.5 MG TABLET PO SCH ×2 (09:02→20:50)
[2021-02-06] MEDS: Apixaban 2.5 MG TABLET PO SCH ×2 (08:11→22:05)
[2021-02-06] MEDS: Metoprolol XL (24 HR) Succ 25 MG TAB.ER.24H PO SCH (08:11)
[2021-02-06] MEDS: Aspirin Enteric Coated 81 MG Tablet PO SCH (08:11)
[2021-02-06] MEDS: Sucralfate 1 GM TABLET PO SCH ×2 (08:11→15:04)
[2021-02-06] MEDS: Furosemide 20 MG/2 ML VIAL IVP SCH (08:11)
[2021-02-07 03:10] VITALS: O2SAT 94
[2021-02-07 06:52] VITALS: BP 162/78; PULSE 94; TEMP 98.1
[2021-02-07] MEDS: Apixaban 2.5 MG TABLET PO SCH (10:02)
[2021-02-07] MEDS: Aspirin Enteric Coated 81 MG Tablet PO SCH (10:02)
[2021-02-07] MEDS: Metoprolol XL (24 HR) Succ 25 MG TAB.ER.24H PO SCH (10:02)
[2021-02-07] MEDS: Sucralfate 1 GM TABLET PO SCH (10:03)
[2021-02-07] MEDS: Furosemide 20 MG/2 ML VIAL IVP SCH (10:27)
== END 2021-02-07 11:39 | disposition home or self-care (01) | DRG 291 ==
LOC: 3BNU 18:03 → EMEROOARM 18:03 → SUATTDRO 20:34 → 3BNU 21:26
PROVIDERS: ADMIT Internal Medicine; ATTEND Family Medicine

== ENCOUNTER 2021-06-06 19:38 | Inpatient (IN) ==
[2021-06-06 20:20] LABS: Basophils # 0.1 K/mcL (0.0-0.2); Basophils % 0.7 %; Eosinophils # 0.8 K/mcL (0.0-0.6); Eosinophils % 9.8 %; Hematocrit 37.2 % (37.5-50.1); Hemoglobin 11.6 g/dL (12.9-16.9); Immature Granulocytes % 0.2 % (0-4); Mean Corpuscular HGB Conc 31.2 g/dL (31.6-35.5); Mean Corpuscular Hemoglobin 29.7 pg (28.0-33.3); Mean Corpuscular Volume 95.1 fL (83.0-100.0); Mean Platelet Volume 9.9 fL (9.4-12.4); Monocytes % 11.3 %; Neutrophils # 4.7 K/mcL (1.6-8.9); Platelet Count 255 K/mcL (140-400); Red Blood Count 3.91 M/mcL (4.19-5.50); Red Cell Distribution Width 15.3 % (11.5-14.5); White Blood Count 8.5 K/mcL (4.3-11.1)
[2021-06-06 20:42] LABS: BUN/Creatinine Ratio 20 (6-26); Blood Urea Nitrogen 28 mg/dL (8-23); Calcium 9.7 mg/dL (8.6-10.3); Carbon Dioxide 25 mEq/L (23-29); Chloride 106 mEq/L (98-107); Glucose 114 mg/dL (70-105); Osmolality,Calculated 296 (280-300); Potassium 3.7 mEq/L (3.5-5.1); Sodium 140 mEq/L (136-145); Troponin I < 0.03 ng/mL (< 0.04); eGFR For African Americans 59 (> 60); eGFR For Non-African Americans 48 (> 60)
[2021-06-06] MEDS ORDERED: Furosemide 40 MG/4 ML VIAL IVP ONE (22:15)
[2021-06-07] MEDS ORDERED: Perflutren Lipid Microsphere 1.3 ML in 0.9 % Sodium Chloride 8.7 ML IVP PRN (00:59)
[2021-06-07] MEDS ORDERED: Acetaminophen 325 MG TABLET PO PRN (01:10)
[2021-06-07] MEDS ORDERED: Naloxone 0.4 MG/ML INJ IVP PRN (01:10)
[2021-06-07] MEDS ORDERED: *HR* OxyCODONE/APAP 5/325 TABLET PO PRN (01:35)
[2021-06-07] MEDS: Famotidine 20 MG/2 ML VIAL IVP SCH ×2 (02:03→06:00)
[2021-06-07] MEDS: Apixaban 5 MG TABLET PO SCH ×2 (02:03→20:10)
[2021-06-07] MEDS: Sacubitril/Valsartan 24/26 MG 1 TABLET PO SCH ×2 (02:36→20:10)
[2021-06-07 02:37] LABS: Influenza A PCR Negative (Negative); Influenza B PCR Negative (Negative); Resp. Syncytial Virus PCR Negative (Negative)
[2021-06-07 02:48] LABS: Hematocrit 41.3 % (37.5-50.1); Mean Corpuscular Volume 93.9 fL (83.0-100.0); Mean Platelet Volume 9.4 fL (9.4-12.4); Platelet Count 255 K/mcL (140-400); Red Cell Distribution Width 15.1 % (11.5-14.5); White Blood Count 8.9 K/mcL (4.3-11.1)
[2021-06-07 02:50] LABS: SARS-CoV-2 by PCR (In House) Negative (Negative)
[2021-06-07 02:51] LABS: Hemoglobin 13.2 g/dL (12.9-16.9)
[2021-06-07 03:25] LABS: INR 1.4; Prothrombin Time 15.7 Seconds (9.4-12.1)
[2021-06-07 03:28] LABS: Activated Partial Thrombo Time 35.3 Seconds (26.0-36.0)
[2021-06-07 03:34] LABS: BUN/Creatinine Ratio 19 (6-26); Blood Urea Nitrogen 25 mg/dL (8-23); Calcium 9.9 mg/dL (8.6-10.3); Carbon Dioxide 25 mEq/L (23-29); Chloride 103 mEq/L (98-107); Chol/HDL Ratio 3.4 (0-4.9); Cholesterol 128 mg/dL (< 200); Glucose 126 mg/dL (70-105); HDL Cholesterol 38 mg/dL (40-59); LDL Cholesterol,Calculated 53 mg/dL (< 100); Magnesium 1.7 mg/dL (1.6-2.6); Osmolality,Calculated 298 (280-300); Potassium 3.3 mEq/L (3.5-5.1); Sodium 141 mEq/L (136-145); Triglycerides 186 mg/dL (< 150); eGFR For African Americans > 60 (> 60); eGFR For Non-African Americans 53 (> 60)
[2021-06-07] MEDS: Levalbuterol Neb 1.25 MG/3 ML IH SCH ×3 (03:36→07:40)
[2021-06-07 03:43] LABS: Iron 41 mcg/dL (65-175)
[2021-06-07 03:50] LABS: Ferritin 546 ng/mL (20-250)
[2021-06-07 03:52] LABS: Bilirubin,Urine Negative (Negative); Blood,Urine Negative (Negative); Clarity,Urine Clear (Clear); Color,Urine Colorless (Yellow); Glucose,Urine (UA) Normal (Normal); Ketones,Urine Negative (Negative); Leukocyte Esterase,Urine Negative (Negative); Nitrite,Urine Negative (Negative); Protein,Urine Negative (Neg-Trace); Urobilinogen,Urine Normal (Normal)
[2021-06-07 03:53] LABS: Folate 17.3 ng/mL (3.0-16.0)
[2021-06-07 04:43] LABS: % Iron Saturation 15 % (20-55); Transferrin 198 mg/dL (203-362)
[2021-06-07] MEDS ORDERED: Tiotropium 10 INH DOSE IH ONE (07:37)
[2021-06-07] MEDS: Sucralfate 1 GM TABLET PO SCH ×2 (07:47→16:21)
[2021-06-07] MEDS: Sennosides 8.6 MG TABLET PO SCH ×2 (07:47→20:09)
[2021-06-07] MEDS: Aspirin Enteric Coated 81 MG Tablet PO SCH (07:47)
[2021-06-07] MEDS: Metoprolol XL (24 HR) Succ 25 MG TAB.ER.24H PO SCH (07:47)
[2021-06-07] MEDS: Finasteride 5 MG TABLET PO SCH (07:48)
[2021-06-07] MEDS: Furosemide 20 MG/2 ML VIAL IVP SCH ×2 (07:49→20:57)
[2021-06-07 08:05] LABS: Hepatitis B Surface Antigen Nonreactive (Nonreactive)
[2021-06-07] MEDS ORDERED: Potassium Chloride Elixir 20 MEQ/15 ML UDC PO ONE (08:09)
[2021-06-07] MEDS: Artificial Tears SOLN 15 ML BOTTLE BOTH EYES SCH ×4 (08:21→20:10)
[2021-06-07 08:34] LABS: Hepatitis B Core IgM Nonreactive (Nonreactive)
[2021-06-07 08:35] LABS: Hepatitis C Virus Antibody Nonreactive (Nonreactive)
[2021-06-07] MEDS ORDERED: Nitroglycerin 0.4 MG TAB.SUBL SL PRN (08:35)
[2021-06-07] MEDS ORDERED: Fluticasone Propionate Nasal 50 MCG/SPRAY BOTTLE NS PRN (08:35)
[2021-06-07 08:36] LABS: Hepatitis A Antibody IgM Nonreactive (Nonreactive)
[2021-06-07] MEDS ORDERED: NON-FORMULARY MEDICATION 1 EACH EACH (Pantoprazole Sodium [Protonix] 40 MG Tablet.Dr) PO SCH (09:00)
[2021-06-07] MEDS ORDERED: Finasteride 5 MG TABLET PO SCH (09:00)
[2021-06-07] MEDS ORDERED: NON-FORMULARY MEDICATION 1 EACH EACH (Ezetimibe [Zetia] 10 MG Tablet) PO SCH (09:00)
[2021-06-07] MEDS ORDERED: Tiotropium 10 INH DOSE IH SCH (10:00)
[2021-06-07] MEDS: Ipratropium/Albuterol Neb 3 ML IH SCH ×3 (11:19→20:43)
[2021-06-07] MEDS: predniSONE 20 MG TABLET PO SCH (11:41)
[2021-06-07] MEDS: Spironolactone 12.5 MG TABLET PO SCH (11:42)
[2021-06-07] MEDS ORDERED: Sucralfate 1 GM TABLET PO SCH (16:30)
[2021-06-08] MEDS: Ipratropium/Albuterol Neb 3 ML IH SCH ×4 (04:01→20:25)
[2021-06-08 05:19] LABS: Hematocrit 34.7 % (37.5-50.1); Hemoglobin 11.4 g/dL (12.9-16.9); Mean Corpuscular HGB Conc 32.9 g/dL (31.6-35.5); Mean Corpuscular Hemoglobin 30.3 pg (28.0-33.3); Mean Corpuscular Volume 92.3 fL (83.0-100.0); Platelet Count 263 K/mcL (140-400); Red Blood Count 3.76 M/mcL (4.19-5.50); White Blood Count 8.3 K/mcL (4.3-11.1)
[2021-06-08 05:45] LABS: Calcium 9.8 mg/dL (8.6-10.3); Potassium 4.2 mEq/L (3.5-5.1)
[2021-06-08] MEDS: Spironolactone 12.5 MG TABLET PO SCH (08:10)
[2021-06-08] MEDS: Sacubitril/Valsartan 24/26 MG 1 TABLET PO SCH ×2 (08:10→21:05)
[2021-06-08] MEDS: Sennosides 8.6 MG TABLET PO SCH ×2 (08:11→21:05)
[2021-06-08] MEDS: Aspirin Enteric Coated 81 MG Tablet PO SCH (08:12)
[2021-06-08] MEDS: Sucralfate 1 GM TABLET PO SCH ×2 (08:12→17:36)
[2021-06-08] MEDS: predniSONE 20 MG TABLET PO SCH (08:12)
[2021-06-08] MEDS: Apixaban 5 MG TABLET PO SCH ×2 (08:12→21:06)
[2021-06-08] MEDS: Finasteride 5 MG TABLET PO SCH (08:12)
[2021-06-08] MEDS: Metoprolol XL (24 HR) Succ 25 MG TAB.ER.24H PO SCH (08:13)
[2021-06-08] MEDS: Artificial Tears SOLN 15 ML BOTTLE BOTH EYES SCH ×4 (08:13→21:04)
[2021-06-08] MEDS: Furosemide 20 MG/2 ML VIAL IVP SCH ×2 (08:13→21:05)
[2021-06-08] MEDS: PRAVASTATIN SODIUM 40 MG PO SCH (08:14)
[2021-06-09] MEDS: Ipratropium/Albuterol Neb 3 ML IH SCH ×4 (03:39→21:17)
[2021-06-09] MEDS: Sennosides 8.6 MG TABLET PO SCH ×2 (08:09→19:52)
[2021-06-09] MEDS: Sucralfate 1 GM TABLET PO SCH ×2 (08:10→17:49)
[2021-06-09] MEDS: Aspirin Enteric Coated 81 MG Tablet PO SCH (08:10)
[2021-06-09] MEDS: Apixaban 5 MG TABLET PO SCH ×2 (08:10→19:53)
[2021-06-09] MEDS: Sacubitril/Valsartan 24/26 MG 1 TABLET PO SCH (08:10)
[2021-06-09] MEDS: Finasteride 5 MG TABLET PO SCH (08:10)
[2021-06-09] MEDS: Spironolactone 12.5 MG TABLET PO SCH (08:11)
[2021-06-09] MEDS: Metoprolol XL (24 HR) Succ 25 MG TAB.ER.24H PO SCH (08:11)
[2021-06-09] MEDS: predniSONE 20 MG TABLET PO SCH (08:11)
[2021-06-09] MEDS: Artificial Tears SOLN 15 ML BOTTLE BOTH EYES SCH ×4 (08:12→22:52)
[2021-06-09] MEDS: PRAVASTATIN SODIUM 40 MG PO SCH (08:12)
[2021-06-09 10:39] LABS: Calcium 10.2 mg/dL (8.6-10.3); Potassium 3.5 mEq/L (3.5-5.1)
[2021-06-09] MEDS: Furosemide 20 MG/2 ML VIAL IVP SCH (11:09)
[2021-06-09] MEDS ORDERED: 0.9 % Sodium Chloride 500 ML IVC ONE (11:55)
[2021-06-09] MEDS ORDERED: Metoprolol XL (24 HR) Succ 25 MG TAB.ER.24H PO ONE (13:11)
[2021-06-09 15:40] LABS: Magnesium 1.9 mg/dL (1.6-2.6)
[2021-06-10] MEDS: Ipratropium/Albuterol Neb 3 ML IH SCH ×4 (04:56→20:05)
[2021-06-10 06:39] LABS: Albumin 3.9 g/dL (3.5-5.7); Albumin/Globulin Ratio 1.5 (1.1-2.2); Bilirubin,Total 0.4 mg/dL (0.3-1.0); Calcium 9.6 mg/dL (8.6-10.3); Globulin 2.6 g/dL (2.4-3.5); Potassium 4.9 mEq/L (3.5-5.1); Total Protein 6.5 g/dL (6.4-8.9)
[2021-06-10] MEDS: Sucralfate 1 GM TABLET PO SCH ×2 (07:31→16:36)
[2021-06-10] MEDS ORDERED: Metoprolol XL (24 HR) Succ 25 MG TAB.ER.24H PO SCH (09:00)
[2021-06-10] MEDS: Metoprolol XL (24 HR) Succ 25 MG TAB.ER.24H PO SCH ×2 (10:11→21:13)
[2021-06-10] MEDS: Apixaban 5 MG TABLET PO SCH (10:12)
[2021-06-10] MEDS: Aspirin Enteric Coated 81 MG Tablet PO SCH (10:13)
[2021-06-10] MEDS: predniSONE 20 MG TABLET PO SCH (10:13)
[2021-06-10] MEDS: Sennosides 8.6 MG TABLET PO SCH ×2 (10:13→21:12)
[2021-06-10] MEDS: Finasteride 5 MG TABLET PO SCH (10:14)
[2021-06-10] MEDS: Artificial Tears SOLN 15 ML BOTTLE BOTH EYES SCH ×4 (10:14→21:13)
[2021-06-10] MEDS: PRAVASTATIN SODIUM 40 MG PO SCH (10:15)
[2021-06-10] MEDS ORDERED: 0.9 % Sodium Chloride 2,000 ML ONE (12:20)
[2021-06-10] MEDS ORDERED: Heparin 1,000 UNITS/500 mL 500 ML ONE (12:20)
[2021-06-10] MEDS ORDERED: *HR* Heparin 10,000 UNIT/10 ML VIAL ONE (12:20)
[2021-06-10] MEDS ORDERED: Nitroglycerin 1,000 MCG/5 ML VIAL IV ONE (12:20)
[2021-06-10] MEDS ORDERED: ISOVUE-370 200 ML INFUS..BTL ONE (12:20)
[2021-06-10] MEDS ORDERED: *HR* Midazolam HCl 2 MG/2 ML VIAL ONE (13:02)
[2021-06-10] MEDS ORDERED: *HR* FentaNYL (PF) 100 MCG/2 ML VIAL ONE (13:02)
[2021-06-11 01:48] LABS: Basophils % 0.2 %; Hematocrit 35.6 % (37.5-50.1); Hemoglobin 11.2 g/dL (12.9-16.9); Immature Granulocytes % 0.6 % (0-4); Lymphocytes # 1.1 K/mcL (0.6-4.6); Mean Corpuscular HGB Conc 31.5 g/dL (31.6-35.5); Mean Corpuscular Hemoglobin 29.6 pg (28.0-33.3); Mean Corpuscular Volume 94.2 fL (83.0-100.0); Mean Platelet Volume 9.9 fL (9.4-12.4); Monocytes # 0.8 K/mcL (0.0-1.3); Monocytes % 6.3 %; Neutrophils # 10.2 K/mcL (1.6-8.9); Platelet Count 274 K/mcL (140-400); Red Blood Count 3.78 M/mcL (4.19-5.50); Red Cell Distribution Width 15.2 % (11.5-14.5); Segmented Neutrophils % 83.9 %; White Blood Count 12.1 K/mcL (4.3-11.1)
[2021-06-11 02:01] LABS: Albumin 3.8 g/dL (3.5-5.7); Albumin/Globulin Ratio 1.2 (1.1-2.2); Bilirubin,Total 0.5 mg/dL (0.3-1.0); Calcium 9.9 mg/dL (8.6-10.3); Globulin 3.3 g/dL (2.4-3.5); Potassium 5.2 mEq/L (3.5-5.1); Total Protein 7.1 g/dL (6.4-8.9)
[2021-06-11] MEDS: Ipratropium/Albuterol Neb 3 ML IH SCH ×4 (04:19→19:51)
[2021-06-11] MEDS: predniSONE 20 MG TABLET PO SCH (07:37)
[2021-06-11] MEDS: Aspirin Enteric Coated 81 MG Tablet PO SCH (07:37)
[2021-06-11] MEDS: Sucralfate 1 GM TABLET PO SCH ×2 (07:37→16:55)
[2021-06-11] MEDS: Sennosides 8.6 MG TABLET PO SCH ×2 (07:37→20:02)
[2021-06-11] MEDS: PRAVASTATIN SODIUM 40 MG PO SCH (07:38)
[2021-06-11] MEDS: Metoprolol XL (24 HR) Succ 25 MG TAB.ER.24H PO SCH ×2 (07:38→20:05)
[2021-06-11] MEDS: Finasteride 5 MG TABLET PO SCH (07:38)
[2021-06-11] MEDS: Artificial Tears SOLN 15 ML BOTTLE BOTH EYES SCH ×4 (07:39→20:05)
[2021-06-11] MEDS ORDERED: Metoprolol XL (24 HR) Succ 25 MG TAB.ER.24H PO ONE (07:52)
[2021-06-11] MEDS: polyethylene glycoL 3350 17 GM POWD.PACK PO SCH (10:43)
[2021-06-12] MEDS: Ipratropium/Albuterol Neb 3 ML IH SCH ×3 (03:44→16:26)
[2021-06-12 06:51] VITALS: TEMP 97.9
[2021-06-12] MEDS: polyethylene glycoL 3350 17 GM POWD.PACK PO SCH (08:24)
[2021-06-12] MEDS: Artificial Tears SOLN 15 ML BOTTLE BOTH EYES SCH ×2 (08:24→11:59)
[2021-06-12] MEDS: Aspirin Enteric Coated 81 MG Tablet PO SCH (08:25)
[2021-06-12] MEDS: Sennosides 8.6 MG TABLET PO SCH (08:25)
[2021-06-12] MEDS: Finasteride 5 MG TABLET PO SCH (08:25)
[2021-06-12] MEDS: Metoprolol XL (24 HR) Succ 25 MG TAB.ER.24H PO SCH (08:26)
[2021-06-12] MEDS: PRAVASTATIN SODIUM 40 MG PO SCH (08:26)
[2021-06-12] MEDS: Sucralfate 1 GM TABLET PO SCH (08:26)
[2021-06-12 10:55] VITALS: BP 134/84; PULSE 98; O2SAT 98
== END 2021-06-12 15:35 | disposition home health service (06) | DRG 286 ==
LOC: EMEROOARM 19:38 → 3NENU 19:38 → SUATTDRO 23:51 → 3NENU 06-07 00:53
PROVIDERS: ADMIT Internal Medicine; ATTEND Registered Nurse

== ENCOUNTER 2021-06-24 13:01 | Inpatient (IN) ==
[2021-06-24] MEDS ORDERED: Furosemide 40 MG/4 ML VIAL IVP ONE (14:11)
[2021-06-24 14:41] LABS: Basophils # 0.1 K/mcL (0.0-0.2); Basophils % 0.5 %; Eosinophils # 0.6 K/mcL (0.0-0.6); Eosinophils % 4.2 %; Hematocrit 31.8 % (37.5-50.1); Immature Granulocytes % 0.4 % (0-4); Lymphocytes # 1.1 K/mcL (0.6-4.6); Mean Corpuscular HGB Conc 31.4 g/dL (31.6-35.5); Mean Corpuscular Hemoglobin 30.3 pg (28.0-33.3); Mean Corpuscular Volume 96.4 fL (83.0-100.0); Mean Platelet Volume 10.3 fL (9.4-12.4); Monocytes # 0.8 K/mcL (0.0-1.3); Monocytes % 5.9 %; Neutrophils # 10.8 K/mcL (1.6-8.9); Platelet Count 237 K/mcL (140-400); White Blood Count 13.3 K/mcL (4.3-11.1)
[2021-06-24 14:52] LABS: INR 1.8; Prothrombin Time 19.6 Seconds (9.4-12.1)
[2021-06-24 14:55] LABS: Activated Partial Thrombo Time 50.9 Seconds (26.0-36.0)
[2021-06-24 14:59] LABS: Albumin 3.8 g/dL (3.5-5.7); Albumin/Globulin Ratio 1.2 (1.1-2.2); Bilirubin,Direct 0.1 mg/dL (0.0-0.2); Bilirubin,Indirect 0.9 mg/dL (0.0-1.0); Calcium 9.8 mg/dL (8.6-10.3); Globulin 3.3 g/dL (2.4-3.5); Total Protein 7.1 g/dL (6.4-8.9); Troponin I 0.03 ng/mL (< 0.04)
[2021-06-24] MEDS ORDERED: Nitroglycerin 1 INCH/GM PACKET TP ONE (15:04)
[2021-06-24 16:47] LABS: Influenza A PCR Negative (Negative); Influenza B PCR Negative (Negative); Resp. Syncytial Virus PCR Negative (Negative); SARS-CoV-2 by PCR (In House) Negative (Negative)
[2021-06-24] MEDS ORDERED: Naloxone 0.4 MG/ML INJ IVP PRN (17:47)
[2021-06-24] MEDS ORDERED: Ipratropium/Albuterol Neb 3 ML IH PRN (19:22)
[2021-06-24] MEDS ORDERED: *HR* OxyCODONE/APAP 5/325 TABLET PO PRN (19:22)
[2021-06-24] MEDS ORDERED: Nitroglycerin 0.4 MG TAB.SUBL SL PRN (19:22)
[2021-06-24] MEDS ORDERED: Sennosides 8.6 MG TABLET PO PRN (19:22)
[2021-06-24] MEDS ORDERED: Artificial Tears SOLN 15 ML BOTTLE BOTH EYES PRN (19:22)
[2021-06-24] MEDS ORDERED: Fluticasone Propionate Nasal 50 MCG/SPRAY BOTTLE NS PRN (19:22)
[2021-06-24] MEDS ORDERED: Tiotropium 10 INH DOSE IH ONE (19:43)
[2021-06-24] MEDS: Tiotropium 10 INH DOSE IH SCH (20:13)
[2021-06-24] MEDS ORDERED: Acetaminophen 325 MG TABLET PO ONE (21:33)
[2021-06-24] MEDS: Apixaban 2.5 MG TABLET PO SCH (21:35)
[2021-06-24] MEDS: Metoprolol XL (24 HR) Succ 25 MG TAB.ER.24H PO SCH (21:35)
[2021-06-25 06:28] LABS: Hematocrit 29.3 % (37.5-50.1); Hemoglobin 9.4 g/dL (12.9-16.9); Mean Corpuscular HGB Conc 32.1 g/dL (31.6-35.5); Mean Corpuscular Hemoglobin 29.9 pg (28.0-33.3); Mean Corpuscular Volume 93.3 fL (83.0-100.0); Mean Platelet Volume 9.8 fL (9.4-12.4); Platelet Count 225 K/mcL (140-400); Red Blood Count 3.14 M/mcL (4.19-5.50); Red Cell Distribution Width 14.7 % (11.5-14.5)
[2021-06-25 06:48] LABS: Calcium 9.5 mg/dL (8.6-10.3); Potassium 3.4 mEq/L (3.5-5.1)
[2021-06-25] MEDS: Metoprolol XL (24 HR) Succ 25 MG TAB.ER.24H PO SCH ×2 (07:51→21:33)
[2021-06-25] MEDS: Furosemide 40 MG/4 ML VIAL IVP SCH (07:51)
[2021-06-25] MEDS: Apixaban 2.5 MG TABLET PO SCH ×2 (07:52→21:33)
[2021-06-25] MEDS: Finasteride 5 MG TABLET PO SCH (07:52)
[2021-06-25] MEDS: Aspirin Enteric Coated 81 MG Tablet PO SCH (07:52)
[2021-06-25] MEDS: Sucralfate 1 GM TABLET PO SCH ×2 (07:52→17:32)
[2021-06-25] MEDS: Tiotropium 10 INH DOSE IH SCH (08:36)
[2021-06-25] MEDS: PRAVASTATIN SODIUM 40 MG PO SCH (11:25)
[2021-06-25] MEDS: LUTEIN PO SCH (17:32)
[2021-06-25] MEDS: COPPER PO SCH (17:32)
[2021-06-25] MEDS: ZINC PO SCH (17:32)
[2021-06-25] MEDS: ZEAX PO SCH (17:32)
[2021-06-25] MEDS: VITC PO SCH (17:32)
[2021-06-25] MEDS: [UNRECOGNIZED DRUG - OTHER] PO SCH (17:32)
[2021-06-26 02:50] LABS: Hematocrit 29.7 % (37.5-50.1); Hemoglobin 9.7 g/dL (12.9-16.9); Mean Corpuscular HGB Conc 32.7 g/dL (31.6-35.5); Mean Corpuscular Hemoglobin 29.9 pg (28.0-33.3); Mean Corpuscular Volume 91.7 fL (83.0-100.0); Platelet Count 239 K/mcL (140-400); Red Blood Count 3.24 M/mcL (4.19-5.50); Red Cell Distribution Width 14.4 % (11.5-14.5); White Blood Count 9.8 K/mcL (4.3-11.1)
[2021-06-26 03:07] LABS: Calcium 9.7 mg/dL (8.6-10.3); Potassium 3.5 mEq/L (3.5-5.1)
[2021-06-26] MEDS: Furosemide 40 MG/4 ML VIAL IVP SCH (07:46)
[2021-06-26] MEDS: Sucralfate 1 GM TABLET PO SCH ×2 (07:47→15:26)
[2021-06-26] MEDS: Aspirin Enteric Coated 81 MG Tablet PO SCH (07:47)
[2021-06-26] MEDS: Apixaban 2.5 MG TABLET PO SCH ×2 (07:47→21:26)
[2021-06-26] MEDS: Finasteride 5 MG TABLET PO SCH (07:48)
[2021-06-26] MEDS: Metoprolol XL (24 HR) Succ 25 MG TAB.ER.24H PO SCH ×2 (07:48→21:28)
[2021-06-26] MEDS: [UNRECOGNIZED DRUG - OTHER] PO SCH (07:49)
[2021-06-26] MEDS: VITC PO SCH (07:49)
[2021-06-26] MEDS: PRAVASTATIN SODIUM 40 MG PO SCH (07:49)
[2021-06-26] MEDS: ZINC PO SCH (07:49)
[2021-06-26] MEDS: LUTEIN PO SCH (07:49)
[2021-06-26] MEDS: COPPER PO SCH (07:49)
[2021-06-26] MEDS: ZEAX PO SCH (07:49)
[2021-06-26] MEDS: Tiotropium 10 INH DOSE IH SCH (11:01)
[2021-06-26] MEDS: Acetaminophen 325 MG TABLET PO PRN ×2 (12:43→20:23)
[2021-06-27] MEDS ORDERED: *HR* HYDROcodone/Acet 5/325 mg TABLET PO ONE (02:10)
[2021-06-27 03:21] LABS: Hematocrit 28.6 % (37.5-50.1); Hemoglobin 9.4 g/dL (12.9-16.9); Mean Corpuscular HGB Conc 32.9 g/dL (31.6-35.5); Mean Corpuscular Hemoglobin 30.3 pg (28.0-33.3); Mean Corpuscular Volume 92.3 fL (83.0-100.0); Mean Platelet Volume 9.8 fL (9.4-12.4); Platelet Count 249 K/mcL (140-400); Red Cell Distribution Width 14.5 % (11.5-14.5); White Blood Count 10.5 K/mcL (4.3-11.1)
[2021-06-27 03:47] LABS: Calcium 9.4 mg/dL (8.6-10.3); Potassium 3.5 mEq/L (3.5-5.1)
[2021-06-27] MEDS: Tiotropium 10 INH DOSE IH SCH (07:40)
[2021-06-27] MEDS: Finasteride 5 MG TABLET PO SCH (08:35)
[2021-06-27] MEDS: Aspirin Enteric Coated 81 MG Tablet PO SCH (08:35)
[2021-06-27] MEDS: Apixaban 2.5 MG TABLET PO SCH ×2 (08:35→21:27)
[2021-06-27] MEDS: Metoprolol XL (24 HR) Succ 25 MG TAB.ER.24H PO SCH ×2 (08:36→21:27)
[2021-06-27] MEDS: Sucralfate 1 GM TABLET PO SCH ×2 (08:36→16:45)
[2021-06-27] MEDS: PRAVASTATIN SODIUM 40 MG PO SCH (08:36)
[2021-06-27] MEDS: COPPER PO SCH (08:37)
[2021-06-27] MEDS: LUTEIN PO SCH (08:37)
[2021-06-27] MEDS: [UNRECOGNIZED DRUG - OTHER] PO SCH (08:37)
[2021-06-27] MEDS: ZINC PO SCH (08:37)
[2021-06-27] MEDS: ZEAX PO SCH (08:37)
[2021-06-27] MEDS: VITC PO SCH (08:37)
[2021-06-27 15:46] LABS: Uric Acid 9.2 mg/dL (2.3-7.6)
[2021-06-27] MEDS: Sennosides/Docusate Sodium TABLET PO SCH ×2 (16:45→21:27)
[2021-06-28 03:48] LABS: Bilirubin,Urine Negative (Negative); Blood,Urine Negative (Negative); Clarity,Urine Clear (Clear); Color,Urine Light-Yellow (Yellow); Glucose,Urine (UA) Normal (Normal); Hyaline Casts,Urine Few per lpf (None Seen); Ketones,Urine Negative (Negative); Leukocyte Esterase,Urine Negative (Negative); Mucus,Urine Few per lpf (None-Few); Nitrite,Urine Negative (Negative); PH,Urine 5.5 pH Units (5.0-8.0); Protein,Urine 30 mg/dL (Neg-Trace); Specific Gravity,Urine 1.019 (1.010-1.025); Squamous Epithelial Cell,Urine Few per hpf (None-Few); Urobilinogen,Urine Normal (Normal)
[2021-06-28 03:59] LABS: Creatinine,Urine 110 mg/dL; Protein/Creatinine Ratio,Urine 0.41 mg/mg (0.00-0.20); Sodium, Urine < 10.0 mEq/L
[2021-06-28] MEDS: Tiotropium 10 INH DOSE IH SCH (07:48)
[2021-06-28 08:39] LABS: Basophils # 0.1 K/mcL (0.0-0.2); Basophils % 0.6 %; Eosinophils # 0.8 K/mcL (0.0-0.6); Eosinophils % 9.2 %; Hematocrit 29.5 % (37.5-50.1); Hemoglobin 9.7 g/dL (12.9-16.9); Immature Granulocytes % 0.2 % (0-4); Lymphocytes # 1.2 K/mcL (0.6-4.6); Lymphocytes % 13.7 %; Mean Corpuscular HGB Conc 32.9 g/dL (31.6-35.5); Mean Corpuscular Hemoglobin 30.1 pg (28.0-33.3); Mean Corpuscular Volume 91.6 fL (83.0-100.0); Mean Platelet Volume 9.6 fL (9.4-12.4); Monocytes # 0.8 K/mcL (0.0-1.3); Monocytes % 8.5 %; Platelet Count 267 K/mcL (140-400); Red Blood Count 3.22 M/mcL (4.19-5.50); Red Cell Distribution Width 14.2 % (11.5-14.5); Segmented Neutrophils % 67.8 %; White Blood Count 8.9 K/mcL (4.3-11.1)
[2021-06-28] MEDS: Metoprolol XL (24 HR) Succ 25 MG TAB.ER.24H PO SCH ×2 (08:50→20:46)
[2021-06-28] MEDS: VITC PO SCH (08:50)
[2021-06-28] MEDS: PRAVASTATIN SODIUM 40 MG PO SCH (08:50)
[2021-06-28] MEDS: LUTEIN PO SCH (08:50)
[2021-06-28] MEDS: ZEAX PO SCH (08:50)
[2021-06-28] MEDS: ZINC PO SCH (08:50)
[2021-06-28] MEDS: Sucralfate 1 GM TABLET PO SCH ×2 (08:50→18:05)
[2021-06-28] MEDS: [UNRECOGNIZED DRUG - OTHER] PO SCH (08:50)
[2021-06-28] MEDS: COPPER PO SCH (08:50)
[2021-06-28] MEDS: Finasteride 5 MG TABLET PO SCH (08:51)
[2021-06-28] MEDS: Sennosides/Docusate Sodium TABLET PO SCH ×2 (08:51→20:45)
[2021-06-28] MEDS: Aspirin Enteric Coated 81 MG Tablet PO SCH (08:52)
[2021-06-28] MEDS: Apixaban 2.5 MG TABLET PO SCH ×2 (08:52→20:46)
[2021-06-28 10:18] LABS: Calcium 9.5 mg/dL (8.6-10.3); Potassium 3.4 mEq/L (3.5-5.1)
[2021-06-28] MEDS: Albumin 25% 25gram/100mL 25 GM/100 ML IV.SOLN IVPB SCH ×2 (17:35→23:35)
[2021-06-29 05:36] LABS: Basophils # 0.1 K/mcL (0.0-0.2); Basophils % 0.8 %; Eosinophils # 0.8 K/mcL (0.0-0.6); Eosinophils % 9.3 %; Hematocrit 27.4 % (37.5-50.1); Hemoglobin 9.2 g/dL (12.9-16.9); Immature Granulocytes % 0.3 % (0-4); Lymphocytes # 1.3 K/mcL (0.6-4.6); Lymphocytes % 14.8 %; Mean Corpuscular HGB Conc 33.6 g/dL (31.6-35.5); Mean Corpuscular Hemoglobin 31.1 pg (28.0-33.3); Mean Corpuscular Volume 92.6 fL (83.0-100.0); Mean Platelet Volume 10.1 fL (9.4-12.4); Monocytes # 0.8 K/mcL (0.0-1.3); Monocytes % 9.1 %; Neutrophils # 5.9 K/mcL (1.6-8.9); Platelet Count 260 K/mcL (140-400); Red Blood Count 2.96 M/mcL (4.19-5.50); Red Cell Distribution Width 14.1 % (11.5-14.5); Segmented Neutrophils % 65.7 %; White Blood Count 8.9 K/mcL (4.3-11.1)
[2021-06-29 06:02] LABS: Calcium 9.9 mg/dL (8.6-10.3); Potassium 3.8 mEq/L (3.5-5.1)
[2021-06-29] MEDS: Tiotropium 10 INH DOSE IH SCH (07:27)
[2021-06-29] MEDS: Sucralfate 1 GM TABLET PO SCH ×2 (07:53→17:12)
[2021-06-29] MEDS: Apixaban 2.5 MG TABLET PO SCH ×2 (09:06→21:40)
[2021-06-29] MEDS: Metoprolol XL (24 HR) Succ 25 MG TAB.ER.24H PO SCH ×2 (09:06→21:39)
[2021-06-29] MEDS: Aspirin Enteric Coated 81 MG Tablet PO SCH (09:06)
[2021-06-29] MEDS: Sennosides/Docusate Sodium TABLET PO SCH ×2 (09:06→21:39)
[2021-06-29] MEDS: [UNRECOGNIZED DRUG - OTHER] PO SCH (09:08)
[2021-06-29] MEDS: ZINC PO SCH (09:08)
[2021-06-29] MEDS: COPPER PO SCH (09:08)
[2021-06-29] MEDS: LUTEIN PO SCH (09:08)
[2021-06-29] MEDS: VITC PO SCH (09:08)
[2021-06-29] MEDS: PRAVASTATIN SODIUM 40 MG PO SCH (09:08)
[2021-06-29] MEDS: ZEAX PO SCH (09:08)
[2021-06-29] MEDS: Finasteride 5 MG TABLET PO SCH (09:11)
[2021-06-29] MEDS: Glycerin RECTAL Suppository RC PRN (10:31)
[2021-06-29 15:48] LABS: Complement C3 155 mg/dL (87-200)
[2021-06-30] MEDS: Tiotropium 10 INH DOSE IH SCH (07:56)
[2021-06-30] MEDS: Sucralfate 1 GM TABLET PO SCH ×2 (08:14→16:21)
[2021-06-30] MEDS: Metoprolol XL (24 HR) Succ 25 MG TAB.ER.24H PO SCH ×2 (09:50→22:01)
[2021-06-30] MEDS: Sennosides/Docusate Sodium TABLET PO SCH ×2 (09:50→22:01)
[2021-06-30] MEDS: Aspirin Enteric Coated 81 MG Tablet PO SCH (09:51)
[2021-06-30] MEDS: Apixaban 2.5 MG TABLET PO SCH ×2 (09:51→22:02)
[2021-06-30] MEDS: Finasteride 5 MG TABLET PO SCH (09:51)
[2021-06-30] MEDS: ZINC PO SCH (09:53)
[2021-06-30] MEDS: LUTEIN PO SCH (09:53)
[2021-06-30] MEDS: VITC PO SCH (09:53)
[2021-06-30] MEDS: ZEAX PO SCH (09:53)
[2021-06-30] MEDS: COPPER PO SCH (09:53)
[2021-06-30] MEDS: PRAVASTATIN SODIUM 40 MG PO SCH (09:53)
[2021-06-30] MEDS: [UNRECOGNIZED DRUG - OTHER] PO SCH (09:53)
[2021-06-30 10:44] LABS: Basophils # 0.1 K/mcL (0.0-0.2); Basophils % 0.7 %; Eosinophils # 0.9 K/mcL (0.0-0.6); Eosinophils % 9.9 %; Hematocrit 31.3 % (37.5-50.1); Immature Granulocytes % 0.3 % (0-4); Lymphocytes # 1.2 K/mcL (0.6-4.6); Lymphocytes % 12.9 %; Mean Corpuscular HGB Conc 31.9 g/dL (31.6-35.5); Mean Corpuscular Hemoglobin 29.9 pg (28.0-33.3); Mean Corpuscular Volume 93.4 fL (83.0-100.0); Mean Platelet Volume 9.4 fL (9.4-12.4); Monocytes # 0.8 K/mcL (0.0-1.3); Platelet Count 301 K/mcL (140-400); Red Blood Count 3.35 M/mcL (4.19-5.50); Red Cell Distribution Width 13.9 % (11.5-14.5); Segmented Neutrophils % 67.2 %
[2021-06-30 10:52] LABS: BUN/Creatinine Ratio 28 (6-26); Blood Urea Nitrogen 38 mg/dL (8-23); Calcium 10.1 mg/dL (8.6-10.3); Carbon Dioxide 24 mEq/L (23-29); Chloride 102 mEq/L (98-107); Glucose 107 mg/dL (70-105); Osmolality,Calculated 284 (280-300); Potassium 3.9 mEq/L (3.5-5.1); Sodium 132 mEq/L (136-145); eGFR For African Americans > 60 (> 60); eGFR For Non-African Americans 50 (> 60)
[2021-06-30] MEDS: Torsemide 20 MG TABLET PO SCH (13:13)
[2021-06-30] MEDS: polyethylene glycoL 3350 17 GM POWD.PACK PO SCH (13:13)
[2021-07-01 03:18] LABS: Basophils # 0.1 K/mcL (0.0-0.2); Basophils % 0.5 %; Eosinophils # 0.8 K/mcL (0.0-0.6); Eosinophils % 8.7 %; Hematocrit 29.1 % (37.5-50.1); Hemoglobin 9.5 g/dL (12.9-16.9); Immature Granulocytes % 0.4 % (0-4); Lymphocytes # 1.6 K/mcL (0.6-4.6); Lymphocytes % 17.3 %; Mean Corpuscular HGB Conc 32.6 g/dL (31.6-35.5); Mean Corpuscular Hemoglobin 30.4 pg (28.0-33.3); Mean Corpuscular Volume 93.3 fL (83.0-100.0); Monocytes # 0.9 K/mcL (0.0-1.3); Platelet Count 306 K/mcL (140-400); Red Blood Count 3.12 M/mcL (4.19-5.50); Segmented Neutrophils % 64.1 %; White Blood Count 9.4 K/mcL (4.3-11.1)
[2021-07-01 03:41] LABS: Calcium 10.1 mg/dL (8.6-10.3); Potassium 3.8 mEq/L (3.5-5.1)
[2021-07-01] MEDS: Torsemide 20 MG TABLET PO SCH (08:50)
[2021-07-01] MEDS: Apixaban 2.5 MG TABLET PO SCH (08:50)
[2021-07-01] MEDS: Aspirin Enteric Coated 81 MG Tablet PO SCH (08:50)
[2021-07-01] MEDS: Sennosides/Docusate Sodium TABLET PO SCH ×2 (08:51→21:00)
[2021-07-01] MEDS: Finasteride 5 MG TABLET PO SCH (08:51)
[2021-07-01] MEDS: Metoprolol XL (24 HR) Succ 25 MG TAB.ER.24H PO SCH ×2 (08:51→21:00)
[2021-07-01] MEDS: Sucralfate 1 GM TABLET PO SCH ×2 (08:51→15:41)
[2021-07-01] MEDS: ZINC PO SCH (08:52)
[2021-07-01] MEDS: VITC PO SCH (08:52)
[2021-07-01] MEDS: [UNRECOGNIZED DRUG - OTHER] PO SCH (08:52)
[2021-07-01] MEDS: LUTEIN PO SCH (08:52)
[2021-07-01] MEDS: COPPER PO SCH (08:52)
[2021-07-01] MEDS: polyethylene glycoL 3350 17 GM POWD.PACK PO SCH (08:52)
[2021-07-01] MEDS: ZEAX PO SCH (08:52)
[2021-07-01] MEDS: PRAVASTATIN SODIUM 40 MG PO SCH (08:55)
[2021-07-01] MEDS: Tiotropium 10 INH DOSE IH SCH (11:38)
[2021-07-01] MEDS ORDERED: Acetaminophen 325 MG TABLET PO PRN (13:30)
[2021-07-01] MEDS: Glycerin RECTAL Suppository RC PRN (15:41)
[2021-07-02] MEDS: Tiotropium 10 INH DOSE IH SCH (07:49)
[2021-07-02] MEDS: polyethylene glycoL 3350 17 GM POWD.PACK PO SCH (08:32)
[2021-07-02] MEDS: PRAVASTATIN SODIUM 40 MG PO SCH (08:33)
[2021-07-02] MEDS: [UNRECOGNIZED DRUG - OTHER] PO SCH (08:33)
[2021-07-02] MEDS: COPPER PO SCH (08:33)
[2021-07-02] MEDS: LUTEIN PO SCH (08:33)
[2021-07-02] MEDS: ZEAX PO SCH (08:33)
[2021-07-02] MEDS: VITC PO SCH (08:33)
[2021-07-02] MEDS: ZINC PO SCH (08:33)
[2021-07-02] MEDS: Metoprolol XL (24 HR) Succ 25 MG TAB.ER.24H PO SCH ×2 (08:34→20:01)
[2021-07-02] MEDS: Finasteride 5 MG TABLET PO SCH (08:34)
[2021-07-02] MEDS: Sucralfate 1 GM TABLET PO SCH ×2 (08:34→17:27)
[2021-07-02] MEDS: Aspirin Enteric Coated 81 MG Tablet PO SCH (08:34)
[2021-07-02] MEDS: Sennosides/Docusate Sodium TABLET PO SCH ×2 (08:34→20:01)
[2021-07-02] MEDS: Torsemide 20 MG TABLET PO SCH (08:34)
[2021-07-02 11:24] LABS: ANA IgG by ELISA NONE DETECTED (None Detected); Kappa Qnt Free Light Chains 68.96 mg/L (3.30-19.40); Lambda Qnt Free Light Chains 49.04 mg/L (5.71-26.30)
[2021-07-02] MEDS ORDERED: Furosemide 40 MG in 0.9 % Sodium Chloride 50 ML IV PRN (13:41)
[2021-07-03] MEDS: Tiotropium 10 INH DOSE IH SCH (07:48)
[2021-07-03] MEDS: Sennosides/Docusate Sodium TABLET PO SCH (09:47)
[2021-07-03] MEDS: Aspirin Enteric Coated 81 MG Tablet PO SCH (09:47)
[2021-07-03] MEDS: Finasteride 5 MG TABLET PO SCH (09:47)
[2021-07-03] MEDS: Sucralfate 1 GM TABLET PO SCH (09:47)
[2021-07-03] MEDS: polyethylene glycoL 3350 17 GM POWD.PACK PO SCH (09:47)
[2021-07-03] MEDS: Metoprolol XL (24 HR) Succ 25 MG TAB.ER.24H PO SCH (09:48)
[2021-07-03] MEDS: Torsemide 20 MG TABLET PO SCH (09:48)
[2021-07-03 11:32] VITALS: BP 114/70; PULSE 89; TEMP 97.6; O2SAT 94
[2021-07-03] MEDS: LUTEIN PO SCH (14:15)
[2021-07-03] MEDS: VITC PO SCH (14:15)
[2021-07-03] MEDS: ZINC PO SCH (14:15)
[2021-07-03] MEDS: ZEAX PO SCH (14:15)
[2021-07-03] MEDS: [UNRECOGNIZED DRUG - OTHER] PO SCH (14:15)
[2021-07-03] MEDS: COPPER PO SCH (14:15)
[2021-07-03] MEDS: PRAVASTATIN SODIUM 40 MG PO SCH (14:15)
[2021-07-03 22:45] LABS: Alpha 2 Globulin (PEP) 1.07 g/dL (0.48-1.05); Beta Globulin (PEP) 0.67 g/dL (0.48-1.10)
[2021-07-04 07:49] LABS: IFE Reflexed IFE Done; Immunoglobulin A 328 mg/dL (68-408); Immunoglobulin G 857 mg/dL (768-1632); Immunoglobulin M 53 mg/dL (35-263)
[2021-07-04 18:02] LABS: ANCA IFA Titer <1:20 (<1:20)
[2021-07-05 10:49] LABS: ANCA IFA Pattern NONE DETECTED (None Detected); Serine Protease-3 Antibody 1 AU/mL (0-19)
== END 2021-07-03 14:42 | disposition home health service (06) | DRG 291 ==
LOC: 3ANU 13:01 → EMEROOARM 13:01 → 3ANU 19:43 → SUATTDRO 06-27 14:51
PROVIDERS: ADMIT Internal Medicine; ATTEND Student in an Organized Health Care Education/Training Program

== ENCOUNTER 2021-09-13 14:18 | Inpatient (IN) ==
[2021-09-13 15:00] LABS: Basophils # 0.1 K/mcL (0.0-0.2); Basophils % 0.7 %; Eosinophils # 0.7 K/mcL (0.0-0.6); Eosinophils % 7.1 %; Hematocrit 34.4 % (37.5-50.1); Hemoglobin 10.8 g/dL (12.9-16.9); Immature Granulocytes % 0.2 % (0-4); Lymphocytes # 1.6 K/mcL (0.6-4.6); Lymphocytes % 16.6 %; Mean Corpuscular HGB Conc 31.4 g/dL (31.6-35.5); Mean Corpuscular Hemoglobin 29.7 pg (28.0-33.3); Mean Corpuscular Volume 94.5 fL (83.0-100.0); Monocytes # 0.9 K/mcL (0.0-1.3); Monocytes % 9.3 %; Neutrophils # 6.3 K/mcL (1.6-8.9); Platelet Count 187 K/mcL (140-400); Red Blood Count 3.64 M/mcL (4.19-5.50); Red Cell Distribution Width 18.6 % (11.5-14.5); Segmented Neutrophils % 66.1 %; White Blood Count 9.6 K/mcL (4.3-11.1)
[2021-09-13 15:17] LABS: Calcium 8.7 mg/dL (8.6-10.3); Potassium 4.3 mEq/L (3.5-5.1); Troponin I 0.03 ng/mL (< 0.04)
[2021-09-13] MEDS ORDERED: Ipratropium/Albuterol Neb 3 ML IH ONE (17:45)
[2021-09-13 17:50] LABS: VBG HCO3 20 mEq/L (21-27); VBG PCO2 41 mmHg (41-51); VBG PO2 42 mmHg (25-50)
[2021-09-13 19:25] LABS: Adenovirus Not Detected (Not Detect); Bordetella Pertussis Not Detected (Not Detect); Chlamydophila pneumoniae Not Detected (Not Detect); Coronavirus 229E Not Detected (Not Detect); Coronavirus HKU1 Not Detected (Not Detect); Coronavirus NL63 Not Detected (Not Detect); Coronavirus OC43 Not Detected (Not Detect); Human Metapneumovirus Not Detected (Not Detect); Human Rhinovirus/Enterovirus Not Detected (Not Detect); Influenza A Subtype 2009 H1 Not Detected (Not Detect); Influenza B Not Detected (Not Detect); Mycoplasma pneumoniae Not Detected (Not Detect); Parainfluenza Virus 1 Not Detected (Not Detect); Parainfluenza Virus 2 Not Detected (Not Detect); Parainfluenza Virus 3 Not Detected (Not Detect); Parainfluenza Virus 4 Not Detected (Not Detect); Respiratory Syncytial Virus Not Detected (Not Detect); SARS-CoV-2 Not Detected (Not Detect)
[2021-09-13] MEDS ORDERED: Furosemide 40 MG/4 ML VIAL IVP ONE (19:25)
[2021-09-13] MEDS ORDERED: Melatonin 3 MG TABLET PO PRN (20:23)
[2021-09-13] MEDS ORDERED: Naloxone 0.4 MG/ML INJ IVP PRN (20:23)
[2021-09-13] MEDS ORDERED: Ondansetron 4 MG/2 ML VIAL IVP PRN (20:23)
[2021-09-13] MEDS ORDERED: Albuterol 2.5 MG/3 ML NEBULIZER IH PRN (21:42)
[2021-09-13] MEDS: Acetaminophen 325 MG TABLET PO PRN (22:49)
[2021-09-13] MEDS: Metoprolol XL (24 HR) Succ 25 MG TAB.ER.24H PO SCH (22:50)
[2021-09-13] MEDS: Azithromycin 500 MG in 0.9 % Sodium Chloride 250 ML IVPB SCH (22:55)
[2021-09-13] MEDS: Ipratropium/Albuterol Neb 3 ML IH SCH (23:13)
[2021-09-14] MEDS ORDERED: Ipratropium/Albuterol Neb 3 ML ONE (04:04)
[2021-09-14] MEDS: Ipratropium/Albuterol Neb 3 ML IH SCH ×4 (04:11→22:40)
[2021-09-14] MEDS: *HR* Heparin 5,000 UNIT/ML VIAL SQ SCH ×2 (06:16→16:46)
[2021-09-14] MEDS ORDERED: Bumetanide 1 MG/4 ML VIAL IVP SCH (08:00)
[2021-09-14] MEDS: Metoprolol XL (24 HR) Succ 25 MG TAB.ER.24H PO SCH ×2 (08:41→21:15)
[2021-09-14] MEDS ORDERED: Aspirin Enteric Coated 81 MG Tablet PO SCH (09:00)
[2021-09-14 09:06] LABS: Basophils # 0.1 K/mcL (0.0-0.2); Eosinophils # 0.9 K/mcL (0.0-0.6); Eosinophils % 10.2 %; Hematocrit 34.5 % (37.5-50.1); Hemoglobin 10.8 g/dL (12.9-16.9); Immature Granulocytes % 0.2 % (0-4); Lymphocytes # 1.8 K/mcL (0.6-4.6); Lymphocytes % 19.7 %; Mean Corpuscular HGB Conc 31.3 g/dL (31.6-35.5); Mean Corpuscular Hemoglobin 29.5 pg (28.0-33.3); Mean Corpuscular Volume 94.3 fL (83.0-100.0); Monocytes # 0.9 K/mcL (0.0-1.3); Monocytes % 9.4 %; Neutrophils # 5.5 K/mcL (1.6-8.9); Platelet Count 186 K/mcL (140-400); Red Blood Count 3.66 M/mcL (4.19-5.50); Red Cell Distribution Width 18.8 % (11.5-14.5); Segmented Neutrophils % 59.5 %; White Blood Count 9.2 K/mcL (4.3-11.1)
[2021-09-14 09:28] LABS: Albumin/Globulin Ratio 1.3 (1.1-2.2); Bilirubin,Total 0.7 mg/dL (0.3-1.0); Calcium 8.7 mg/dL (8.6-10.3); Globulin 3.2 g/dL (2.4-3.5); Magnesium 2.6 mg/dL (1.6-2.6); Phosphorous 3.2 mg/dL (2.7-4.5); Potassium 3.7 mEq/L (3.5-5.1); Total Protein 7.2 g/dL (6.4-8.9)
[2021-09-14 10:46] LABS: Uric Acid 9.7 mg/dL (2.3-7.6)
[2021-09-14 11:10] LABS: Estimated Average Glucose 134 mg/dl; Hemoglobin A1C 6.3 %
[2021-09-14] MEDS ORDERED: Nitroglycerin 0.4 MG TAB.SUBL SL PRN (14:14)
[2021-09-14] MEDS ORDERED: Fluticasone Propionate Nasal 50 MCG/SPRAY BOTTLE NS PRN (14:14)
[2021-09-14] MEDS ORDERED: *HR* OxyCODONE/APAP 5/325 TABLET PO PRN (14:14)
[2021-09-14] MEDS ORDERED: Sennosides 8.6 MG TABLET PO PRN (14:50)
[2021-09-14] MEDS: Albumin 25% 25gram/100mL 25 GM/100 ML IV.SOLN IVPB SCH (16:46)
[2021-09-14] MEDS: Sucralfate 1 GM TABLET PO SCH (16:46)
[2021-09-14] MEDS: Furosemide 40 MG/4 ML VIAL IVP SCH (18:54)
[2021-09-14] MEDS: Acetaminophen 325 MG TABLET PO PRN (21:14)
[2021-09-14] MEDS: Cholecalciferol (D-3) 1,000 UNIT (25MCG) TABLET PO SCH (21:15)
[2021-09-14] MEDS: Azithromycin 500 MG in 0.9 % Sodium Chloride 250 ML IVPB SCH (21:16)
[2021-09-15] MEDS: Albumin 25% 25gram/100mL 25 GM/100 ML IV.SOLN IVPB SCH ×3 (00:21→16:43)
[2021-09-15 00:55] LABS: Bacteria,Urine Few per hpf (None-Few); Bilirubin,Urine Negative (Negative); Blood,Urine Trace (Negative); Clarity,Urine Turbid (Clear); Color,Urine Light-Yellow (Yellow); Glucose,Urine (UA) Normal (Normal); Ketones,Urine Negative (Negative); Leukocyte Esterase,Urine Large (Negative); Mucus,Urine Few per lpf (None-Few); Nitrite,Urine Negative (Negative); Protein,Urine 30 mg/dL (Neg-Trace); Squamous Epithelial Cell,Urine Few per hpf (None-Few); Urobilinogen,Urine Normal (Normal); WBC,Urine TNTC per hpf (0-3)
[2021-09-15 01:11] LABS: Sodium, Urine 87.3 mEq/L
[2021-09-15] MEDS: Ipratropium/Albuterol Neb 3 ML IH SCH ×4 (04:07→22:42)
[2021-09-15 04:09] LABS: Basophils # 0.1 K/mcL (0.0-0.2); Eosinophils # 0.8 K/mcL (0.0-0.6); Eosinophils % 8.8 %; Hemoglobin 9.5 g/dL (12.9-16.9); Immature Granulocytes % 0.2 % (0-4); Lymphocytes # 1.9 K/mcL (0.6-4.6); Lymphocytes % 20.8 %; Mean Corpuscular HGB Conc 31.7 g/dL (31.6-35.5); Mean Corpuscular Hemoglobin 29.9 pg (28.0-33.3); Mean Corpuscular Volume 94.3 fL (83.0-100.0); Mean Platelet Volume 11.1 fL (9.4-12.4); Monocytes # 0.9 K/mcL (0.0-1.3); Monocytes % 9.9 %; Neutrophils # 5.4 K/mcL (1.6-8.9); Platelet Count 162 K/mcL (140-400); Red Blood Count 3.18 M/mcL (4.19-5.50); Red Cell Distribution Width 18.8 % (11.5-14.5); Segmented Neutrophils % 59.3 %; White Blood Count 9.1 K/mcL (4.3-11.1)
[2021-09-15 04:27] LABS: Calcium 8.7 mg/dL (8.6-10.3); Magnesium 2.3 mg/dL (1.6-2.6); Phosphorous 2.7 mg/dL (2.7-4.5); Potassium 3.3 mEq/L (3.5-5.1)
[2021-09-15] MEDS: *HR* Heparin 5,000 UNIT/ML VIAL SQ SCH ×2 (05:40→19:59)
[2021-09-15] MEDS: Aspirin Enteric Coated 81 MG Tablet PO SCH (08:34)
[2021-09-15] MEDS: Sucralfate 1 GM TABLET PO SCH ×2 (08:34→16:43)
[2021-09-15] MEDS: Cholecalciferol (D-3) 1,000 UNIT (25MCG) TABLET PO SCH ×2 (08:34→19:58)
[2021-09-15] MEDS: Loratadine 10 MG TABLET PO SCH (08:34)
[2021-09-15] MEDS: Ascorbic Acid 500 MG TABLET PO SCH (08:35)
[2021-09-15] MEDS: Finasteride 5 MG TABLET PO SCH (08:35)
[2021-09-15] MEDS: Metoprolol XL (24 HR) Succ 25 MG TAB.ER.24H PO SCH ×2 (08:35→19:58)
[2021-09-15] MEDS: PRAVASTATIN SODIUM 40 MG PO SCH (08:47)
[2021-09-15] MEDS ORDERED: *HR* OxyCODONE/APAP 5/325 TABLET PO PRN (13:20)
[2021-09-16] MEDS: Albumin 25% 25gram/100mL 25 GM/100 ML IV.SOLN IVPB SCH ×3 (01:30→16:20)
[2021-09-16 03:01] LABS: Basophils # 0.1 K/mcL (0.0-0.2); Basophils % 0.6 %; Eosinophils # 0.7 K/mcL (0.0-0.6); Eosinophils % 7.6 %; Hematocrit 29.2 % (37.5-50.1); Hemoglobin 9.2 g/dL (12.9-16.9); Immature Granulocytes % 0.3 % (0-4); Lymphocytes # 1.6 K/mcL (0.6-4.6); Lymphocytes % 16.8 %; Mean Corpuscular HGB Conc 31.5 g/dL (31.6-35.5); Mean Corpuscular Hemoglobin 29.4 pg (28.0-33.3); Mean Corpuscular Volume 93.3 fL (83.0-100.0); Monocytes # 0.8 K/mcL (0.0-1.3); Monocytes % 9.1 %; Neutrophils # 6.1 K/mcL (1.6-8.9); Platelet Count 169 K/mcL (140-400); Red Blood Count 3.13 M/mcL (4.19-5.50); Red Cell Distribution Width 18.8 % (11.5-14.5); Segmented Neutrophils % 65.6 %; White Blood Count 9.2 K/mcL (4.3-11.1)
[2021-09-16 03:25] LABS: Magnesium 2.5 mg/dL (1.6-2.6); Phosphorous 2.4 mg/dL (2.7-4.5); Potassium 3.6 mEq/L (3.5-5.1)
[2021-09-16] MEDS: Ipratropium/Albuterol Neb 3 ML IH SCH ×4 (03:49→21:30)
[2021-09-16] MEDS: *HR* Heparin 5,000 UNIT/ML VIAL SQ SCH ×2 (07:23→18:48)
[2021-09-16] MEDS: Ascorbic Acid 500 MG TABLET PO SCH (08:35)
[2021-09-16] MEDS: Cholecalciferol (D-3) 1,000 UNIT (25MCG) TABLET PO SCH ×2 (08:35→20:24)
[2021-09-16] MEDS: Loratadine 10 MG TABLET PO SCH (08:35)
[2021-09-16] MEDS: Aspirin Enteric Coated 81 MG Tablet PO SCH (08:35)
[2021-09-16] MEDS: Metoprolol XL (24 HR) Succ 25 MG TAB.ER.24H PO SCH ×2 (08:35→20:24)
[2021-09-16] MEDS: Finasteride 5 MG TABLET PO SCH (08:35)
[2021-09-16] MEDS: Sucralfate 1 GM TABLET PO SCH ×2 (08:35→15:16)
[2021-09-16] MEDS: PRAVASTATIN SODIUM 40 MG PO SCH (08:36)
[2021-09-16] MEDS: Doxycycline 100 MG CAPSULE PO SCH ×2 (15:16→23:46)
[2021-09-17] MEDS: Ipratropium/Albuterol Neb 3 ML IH SCH ×4 (03:51→21:57)
[2021-09-17 04:05] LABS: Calcium 9.4 mg/dL (8.6-10.3); Magnesium 2.5 mg/dL (1.6-2.6); Phosphorous 2.8 mg/dL (2.7-4.5); Potassium 3.8 mEq/L (3.5-5.1)
[2021-09-17] MEDS: *HR* Heparin 5,000 UNIT/ML VIAL SQ SCH ×2 (06:35→18:07)
[2021-09-17] MEDS: Furosemide 40 MG/4 ML VIAL IVP SCH (07:24)
[2021-09-17] MEDS: Finasteride 5 MG TABLET PO SCH (09:12)
[2021-09-17] MEDS: Ascorbic Acid 500 MG TABLET PO SCH (09:13)
[2021-09-17] MEDS: Cholecalciferol (D-3) 1,000 UNIT (25MCG) TABLET PO SCH ×2 (09:13→20:58)
[2021-09-17] MEDS: Metoprolol XL (24 HR) Succ 25 MG TAB.ER.24H PO SCH ×2 (09:13→20:58)
[2021-09-17] MEDS: Aspirin Enteric Coated 81 MG Tablet PO SCH (09:13)
[2021-09-17] MEDS: Loratadine 10 MG TABLET PO SCH (09:13)
[2021-09-17] MEDS: PRAVASTATIN SODIUM 40 MG PO SCH (09:15)
[2021-09-17] MEDS: Sucralfate 1 GM TABLET PO SCH ×2 (09:17→16:06)
[2021-09-17] MEDS: Amoxicillin 250 MG CHEWABLE TABLET PO SCH ×3 (12:01→20:58)
[2021-09-17] MEDS: Spironolactone 25 MG TABLET PO SCH (15:02)
[2021-09-17] MEDS: Albumin 25% 25gram/100mL 25 GM/100 ML IV.SOLN IVPB SCH (16:06)
[2021-09-18] MEDS ORDERED: traZODone 50 MG TABLET PO PRN (00:48)
[2021-09-18] MEDS: Albumin 25% 25gram/100mL 25 GM/100 ML IV.SOLN IVPB SCH ×2 (01:05→11:45)
[2021-09-18] MEDS: Ipratropium/Albuterol Neb 3 ML IH SCH ×2 (03:59→10:02)
[2021-09-18] MEDS: Sucralfate 1 GM TABLET PO SCH (06:21)
[2021-09-18] MEDS: *HR* Heparin 5,000 UNIT/ML VIAL SQ SCH (06:21)
[2021-09-18 08:15] LABS: Calcium 9.4 mg/dL (8.6-10.3); Magnesium 2.5 mg/dL (1.6-2.6); Phosphorous 2.4 mg/dL (2.7-4.5); Potassium 3.8 mEq/L (3.5-5.1)
[2021-09-18 11:40] VITALS: BP 125/80; PULSE 99; TEMP 97.7; O2SAT 93
[2021-09-18] MEDS: Metoprolol XL (24 HR) Succ 25 MG TAB.ER.24H PO SCH (11:43)
[2021-09-18] MEDS: Ascorbic Acid 500 MG TABLET PO SCH (11:44)
[2021-09-18] MEDS: Cholecalciferol (D-3) 1,000 UNIT (25MCG) TABLET PO SCH (11:44)
[2021-09-18] MEDS: Amoxicillin 250 MG CHEWABLE TABLET PO SCH ×2 (11:44→15:05)
[2021-09-18] MEDS: Loratadine 10 MG TABLET PO SCH (11:44)
[2021-09-18] MEDS: Spironolactone 25 MG TABLET PO SCH (11:44)
[2021-09-18] MEDS: Finasteride 5 MG TABLET PO SCH (11:45)
[2021-09-18] MEDS: Aspirin Enteric Coated 81 MG Tablet PO SCH (11:45)
[2021-09-18] MEDS: PRAVASTATIN SODIUM 40 MG PO SCH (11:46)
[2021-09-18 12:22] LABS: Alpha 2 Globulin (PEP) 0.95 g/dL (0.48-1.05); Beta Globulin (PEP) 0.71 g/dL (0.48-1.10)
[2021-09-18 14:01] LABS: IFE Reflexed NOT DONE
== END 2021-09-18 15:33 | disposition home health service (06) | DRG 291 ==
LOC: EMEROOARM 14:18 → 2ANU 14:18 → SUATTDRO 19:39 → 2ANU 19:53
PROVIDERS: ADMIT Student in an Organized Health Care Education/Training Program; ATTEND Internal Medicine

== ENCOUNTER 2021-09-28 16:17 | Inpatient (IN) ==
[2021-09-28 18:34] LABS: Basophils # 0.1 K/mcL (0.0-0.2); Basophils % 0.6 %; Eosinophils # 0.5 K/mcL (0.0-0.6); Eosinophils % 5.4 %; Hematocrit 36.1 % (37.5-50.1); Hemoglobin 11.1 g/dL (12.9-16.9); Immature Granulocytes % 0.2 % (0-4); Lymphocytes # 1.2 K/mcL (0.6-4.6); Mean Corpuscular HGB Conc 30.7 g/dL (31.6-35.5); Mean Corpuscular Hemoglobin 30.3 pg (28.0-33.3); Mean Corpuscular Volume 98.6 fL (83.0-100.0); Mean Platelet Volume 11.9 fL (9.4-12.4); Monocytes # 0.8 K/mcL (0.0-1.3); Monocytes % 8.6 %; Neutrophils # 6.3 K/mcL (1.6-8.9); Platelet Count 168 K/mcL (140-400); Red Blood Count 3.66 M/mcL (4.19-5.50); Segmented Neutrophils % 71.2 %; White Blood Count 8.8 K/mcL (4.3-11.1)
[2021-09-28 18:54] LABS: Calcium 9.4 mg/dL (8.6-10.3); Potassium 4.8 mEq/L (3.5-5.1)
[2021-09-28 18:55] LABS: Troponin I 0.03 ng/mL (< 0.04)
[2021-09-28] MEDS ORDERED: Furosemide 40 MG/4 ML VIAL IVP ONE (21:28)
[2021-09-28] MEDS ORDERED: Naloxone 0.4 MG/ML INJ IVP PRN (22:22)
[2021-09-29] MEDS: Metoprolol XL (24 HR) Succ 50 MG TAB.ER.24H PO SCH ×3 (00:42→21:37)
[2021-09-29] MEDS: Albuterol 2.5 MG/3 ML NEBULIZER IH SCH ×4 (04:06→22:25)
[2021-09-29] MEDS: *HR* Heparin 5,000 UNIT/ML VIAL SQ SCH ×3 (06:04→21:37)
[2021-09-29 06:10] LABS: Hematocrit 34.6 % (37.5-50.1); Hemoglobin 10.8 g/dL (12.9-16.9); Mean Corpuscular HGB Conc 31.2 g/dL (31.6-35.5); Mean Corpuscular Hemoglobin 30.4 pg (28.0-33.3); Mean Corpuscular Volume 97.5 fL (83.0-100.0); Mean Platelet Volume 11.6 fL (9.4-12.4); Platelet Count 155 K/mcL (140-400); Red Blood Count 3.55 M/mcL (4.19-5.50); Red Cell Distribution Width 20.8 % (11.5-14.5); White Blood Count 9.8 K/mcL (4.3-11.1)
[2021-09-29 07:15] LABS: Activated Partial Thrombo Time 31.9 Seconds (26.0-36.0); INR 1.2; Prothrombin Time 13.9 Seconds (9.4-12.1)
[2021-09-29] MEDS ORDERED: Furosemide 20 MG/2 ML VIAL IVP SCH (08:00)
[2021-09-29 08:40] LABS: Albumin 4.2 g/dL (3.5-5.7); Albumin/Globulin Ratio 1.5 (1.1-2.2); Bilirubin,Total 0.7 mg/dL (0.3-1.0); Calcium 9.3 mg/dL (8.6-10.3); Globulin 2.8 g/dL (2.4-3.5); Magnesium 2.3 mg/dL (1.6-2.6); Phosphorous 2.7 mg/dL (2.7-4.5); Potassium 4.6 mEq/L (3.5-5.1)
[2021-09-29] MEDS ORDERED: Sacubitril/Valsartan 24/26 MG 1 TABLET PO SCH (09:00)
[2021-09-29] MEDS: Tiotropium 10 INH DOSE IH SCH (10:52)
[2021-09-29] MEDS: Budesonide/Formoterol 160/4.5 1 PUFF INH IH SCH ×2 (10:53→22:25)
[2021-09-29] MEDS ORDERED: Chlorothiazide Sodium 500 MG VIAL IVP ONE (10:58)
[2021-09-29] MEDS: Aspirin Enteric Coated 81 MG Tablet PO SCH (11:02)
[2021-09-29] MEDS ORDERED: hydrALAZINE 25 MG TABLET PO PRN (13:43)
[2021-09-29] MEDS: Furosemide 240 MG in 0.9 % Sodium Chloride 96 ML IVC SCH (14:28)
[2021-09-29 16:11] LABS: Bilirubin,Urine Negative (Negative); Blood,Urine Negative (Negative); Clarity,Urine Clear (Clear); Color,Urine Colorless (Yellow); Glucose,Urine (UA) Normal (Normal); Hyaline Casts,Urine Few per lpf (None Seen); Ketones,Urine Negative (Negative); Leukocyte Esterase,Urine Small (Negative); Mucus,Urine Few per lpf (None-Few); Nitrite,Urine Negative (Negative); Protein,Urine Trace mg/dL (Neg-Trace); RBC,Urine 0-3 per hpf (0-3); Specific Gravity,Urine 1.009 (1.010-1.025); Urobilinogen,Urine Normal (Normal)
[2021-09-29 16:18] LABS: Sodium, Urine 119.6 mEq/L
[2021-09-29] MEDS: Albumin 25% 25gram/100mL 25 GM/100 ML IV.SOLN IVPB SCH ×2 (16:39→23:08)
[2021-09-29 17:31] LABS: Influenza A PCR Negative (Negative); Influenza B PCR Negative (Negative); Resp. Syncytial Virus PCR Negative (Negative)
[2021-09-29 17:32] LABS: SARS-CoV-2 by PCR (In House) Negative (Negative)
[2021-09-30] MEDS: Albuterol 2.5 MG/3 ML NEBULIZER IH SCH ×4 (03:49→20:29)
[2021-09-30] MEDS: *HR* Heparin 5,000 UNIT/ML VIAL SQ SCH ×3 (04:56→20:05)
[2021-09-30] MEDS: *HR* HYDROcodone/Acet 5/325 mg TABLET PO PRN (08:29)
[2021-09-30] MEDS: Aspirin Enteric Coated 81 MG Tablet PO SCH (08:29)
[2021-09-30] MEDS: Metoprolol XL (24 HR) Succ 50 MG TAB.ER.24H PO SCH ×2 (08:30→20:06)
[2021-09-30] MEDS: Albumin 25% 25gram/100mL 25 GM/100 ML IV.SOLN IVPB SCH ×2 (08:31→16:14)
[2021-09-30] MEDS: Tiotropium 10 INH DOSE IH SCH (09:43)
[2021-09-30] MEDS: Budesonide/Formoterol 160/4.5 1 PUFF INH IH SCH ×2 (09:44→20:27)
[2021-09-30 12:11] LABS: Basophils # 0.1 K/mcL (0.0-0.2); Basophils % 0.8 %; Eosinophils # 0.8 K/mcL (0.0-0.6); Eosinophils % 7.6 %; Hematocrit 33.1 % (37.5-50.1); Hemoglobin 10.5 g/dL (12.9-16.9); Immature Granulocytes % 0.2 % (0-4); Lymphocytes # 1.2 K/mcL (0.6-4.6); Lymphocytes % 11.5 %; Mean Corpuscular HGB Conc 31.7 g/dL (31.6-35.5); Mean Corpuscular Hemoglobin 30.4 pg (28.0-33.3); Mean Corpuscular Volume 95.9 fL (83.0-100.0); Mean Platelet Volume 11.8 fL (9.4-12.4); Monocytes # 0.8 K/mcL (0.0-1.3); Monocytes % 7.7 %; Neutrophils # 7.5 K/mcL (1.6-8.9); Platelet Count 167 K/mcL (140-400); Red Blood Count 3.45 M/mcL (4.19-5.50); Red Cell Distribution Width 21.1 % (11.5-14.5); Segmented Neutrophils % 72.2 %; White Blood Count 10.3 K/mcL (4.3-11.1)
[2021-09-30 12:36] LABS: Calcium 9.5 mg/dL (8.6-10.3); Potassium 3.9 mEq/L (3.5-5.1)
[2021-09-30] MEDS: Acetaminophen 325 MG TABLET PO PRN (20:06)
[2021-09-30] MEDS: Furosemide 240 MG in 0.9 % Sodium Chloride 96 ML IVC SCH (21:58)
[2021-10-01] MEDS: Albumin 25% 25gram/100mL 25 GM/100 ML IV.SOLN IVPB SCH ×3 (00:37→16:03)
[2021-10-01] MEDS: Albuterol 2.5 MG/3 ML NEBULIZER IH SCH ×4 (03:51→22:26)
[2021-10-01] MEDS: *HR* Heparin 5,000 UNIT/ML VIAL SQ SCH ×3 (05:43→20:14)
[2021-10-01] MEDS: Metoprolol XL (24 HR) Succ 50 MG TAB.ER.24H PO SCH ×2 (08:20→20:09)
[2021-10-01] MEDS: Acetaminophen 325 MG TABLET PO PRN (08:20)
[2021-10-01] MEDS: Aspirin Enteric Coated 81 MG Tablet PO SCH (08:20)
[2021-10-01] MEDS: Furosemide 240 MG in 0.9 % Sodium Chloride 96 ML IVC SCH (08:21)
[2021-10-01] MEDS: Tiotropium 10 INH DOSE IH SCH (09:53)
[2021-10-01] MEDS: Budesonide/Formoterol 160/4.5 1 PUFF INH IH SCH ×2 (09:53→22:26)
[2021-10-01 10:12] LABS: Calcium 9.6 mg/dL (8.6-10.3)
[2021-10-01] MEDS ORDERED: Nitroglycerin 0.4 MG TAB.SUBL SL PRN (11:52)
[2021-10-01] MEDS ORDERED: Artificial Tears SOLN 15 ML BOTTLE BOTH EYES PRN (11:52)
[2021-10-01] MEDS ORDERED: Glycerin RECTAL Suppository RC PRN (11:52)
[2021-10-01] MEDS: Torsemide 20 MG TABLET PO SCH ×2 (12:18→16:05)
[2021-10-01] MEDS: Finasteride 5 MG TABLET PO SCH (12:18)
[2021-10-01] MEDS: Sucralfate 1 GM TABLET PO SCH (16:03)
[2021-10-01] MEDS: Cholecalciferol (D-3) 1,000 UNIT (25MCG) TABLET PO SCH (20:08)
[2021-10-01] MEDS ORDERED: NON-FORMULARY MEDICATION 1 EACH EACH (Fluticasone/Salmeterol [Advair Hfa 45-21 Mcg Inhaler IH SCH (21:00)
[2021-10-02] MEDS: Albumin 25% 25gram/100mL 25 GM/100 ML IV.SOLN IVPB SCH ×3 (00:26→17:24)
[2021-10-02] MEDS: Albuterol 2.5 MG/3 ML NEBULIZER IH SCH ×4 (04:37→20:56)
[2021-10-02] MEDS: *HR* Heparin 5,000 UNIT/ML VIAL SQ SCH ×3 (06:52→20:45)
[2021-10-02 07:55] LABS: Calcium 9.8 mg/dL (8.6-10.3); Magnesium 2.1 mg/dL (1.6-2.6); Potassium 3.9 mEq/L (3.5-5.1)
[2021-10-02] MEDS: Acetaminophen 325 MG TABLET PO PRN (07:59)
[2021-10-02] MEDS: Torsemide 20 MG TABLET PO SCH (07:59)
[2021-10-02] MEDS: Finasteride 5 MG TABLET PO SCH (07:59)
[2021-10-02] MEDS: Metoprolol XL (24 HR) Succ 50 MG TAB.ER.24H PO SCH ×2 (08:00→20:46)
[2021-10-02] MEDS: Cholecalciferol (D-3) 1,000 UNIT (25MCG) TABLET PO SCH ×2 (08:01→20:46)
[2021-10-02] MEDS: Aspirin Enteric Coated 81 MG Tablet PO SCH (08:01)
[2021-10-02] MEDS: Sucralfate 1 GM TABLET PO SCH ×2 (08:01→17:20)
[2021-10-02] MEDS: Tiotropium 10 INH DOSE IH SCH (10:24)
[2021-10-02] MEDS: Budesonide/Formoterol 160/4.5 1 PUFF INH IH SCH ×2 (10:24→20:57)
[2021-10-03 03:28] LABS: Magnesium 2.2 mg/dL (1.6-2.6); Potassium 4.2 mEq/L (3.5-5.1)
[2021-10-03] MEDS: Albuterol 2.5 MG/3 ML NEBULIZER IH SCH ×2 (04:20→10:49)
[2021-10-03] MEDS: *HR* Heparin 5,000 UNIT/ML VIAL SQ SCH ×3 (05:54→21:07)
[2021-10-03] MEDS: Finasteride 5 MG TABLET PO SCH (09:10)
[2021-10-03] MEDS: Cholecalciferol (D-3) 1,000 UNIT (25MCG) TABLET PO SCH ×2 (09:10→21:05)
[2021-10-03] MEDS: Acetaminophen 325 MG TABLET PO PRN (09:11)
[2021-10-03] MEDS: Aspirin Enteric Coated 81 MG Tablet PO SCH (09:13)
[2021-10-03] MEDS: Sucralfate 1 GM TABLET PO SCH ×2 (09:14→16:36)
[2021-10-03] MEDS: Metoprolol XL (24 HR) Succ 50 MG TAB.ER.24H PO SCH ×2 (09:28→21:05)
[2021-10-03] MEDS: Tiotropium 10 INH DOSE IH SCH (10:49)
[2021-10-03] MEDS: Budesonide/Formoterol 160/4.5 1 PUFF INH IH SCH ×2 (10:49→20:07)
[2021-10-03] MEDS: Ipratropium/Albuterol Neb 3 ML IH PRN (20:07)
[2021-10-04 02:50] LABS: Calcium 9.8 mg/dL (8.6-10.3); Magnesium 2.2 mg/dL (1.6-2.6); Potassium 4.1 mEq/L (3.5-5.1)
[2021-10-04] MEDS: *HR* Heparin 5,000 UNIT/ML VIAL SQ SCH ×3 (05:14→21:07)
[2021-10-04] MEDS: Acetaminophen 325 MG TABLET PO PRN (06:23)
[2021-10-04] MEDS: Finasteride 5 MG TABLET PO SCH (08:00)
[2021-10-04] MEDS: Metoprolol XL (24 HR) Succ 50 MG TAB.ER.24H PO SCH ×2 (08:01→21:07)
[2021-10-04] MEDS: Sucralfate 1 GM TABLET PO SCH ×2 (08:01→17:16)
[2021-10-04] MEDS: Aspirin Enteric Coated 81 MG Tablet PO SCH (08:01)
[2021-10-04] MEDS: Cholecalciferol (D-3) 1,000 UNIT (25MCG) TABLET PO SCH ×2 (08:01→21:07)
[2021-10-04] MEDS: Budesonide/Formoterol 160/4.5 1 PUFF INH IH SCH ×2 (10:04→19:46)
[2021-10-04] MEDS: Tiotropium 10 INH DOSE IH SCH (10:05)
[2021-10-04] MEDS: Fluticasone Propionate Nasal 50 MCG/SPRAY BOTTLE NS SCH (12:23)
[2021-10-04] MEDS ORDERED: *HR* Heparin 5,000 UNIT/ML VIAL ONE (14:52)
[2021-10-04] MEDS: Ipratropium/Albuterol Neb 3 ML IH PRN (17:45)
[2021-10-05] MEDS: *HR* Heparin 5,000 UNIT/ML VIAL SQ SCH ×3 (05:44→21:07)
[2021-10-05] MEDS: Tiotropium 10 INH DOSE IH SCH (07:13)
[2021-10-05] MEDS: Budesonide/Formoterol 160/4.5 1 PUFF INH IH SCH ×2 (07:13→19:47)
[2021-10-05] MEDS ORDERED: 0.9 % Sodium Chloride 250 ML IVC PRN ×2 (08:42→10:02)
[2021-10-05] MEDS ORDERED: Albumin 25% 25gram/100mL 25 GM/100 ML IV.SOLN IVPB PRN (08:42)
[2021-10-05] MEDS: Cholecalciferol (D-3) 1,000 UNIT (25MCG) TABLET PO SCH ×2 (09:02→21:07)
[2021-10-05] MEDS: Metoprolol XL (24 HR) Succ 50 MG TAB.ER.24H PO SCH ×2 (09:02→21:06)
[2021-10-05] MEDS: Aspirin Enteric Coated 81 MG Tablet PO SCH (09:03)
[2021-10-05] MEDS: Finasteride 5 MG TABLET PO SCH (09:03)
[2021-10-05] MEDS: Sucralfate 1 GM TABLET PO SCH ×2 (09:03→17:10)
[2021-10-05] MEDS: Fluticasone Propionate Nasal 50 MCG/SPRAY BOTTLE NS SCH (09:04)
[2021-10-05] MEDS ORDERED: 0.9 % Sodium Chloride 2,000 ML PRIME SCH (10:15)
[2021-10-05] MEDS ORDERED: *HR* Heparin 10,000 UNIT/10 ML VIAL IV PRN (12:34)
[2021-10-05] MEDS: Acetaminophen 325 MG TABLET PO PRN (14:06)
[2021-10-05] MEDS: *HR* HYDROcodone/Acet 5/325 mg TABLET PO PRN (21:05)
[2021-10-06 03:27] LABS: Hematocrit 34.5 % (37.5-50.1); Hemoglobin 11.1 g/dL (12.9-16.9); Mean Corpuscular HGB Conc 32.2 g/dL (31.6-35.5); Mean Corpuscular Hemoglobin 29.9 pg (28.0-33.3); Mean Platelet Volume 11.1 fL (9.4-12.4); Platelet Count 104 K/mcL (140-400); Red Blood Count 3.71 M/mcL (4.19-5.50); Red Cell Distribution Width 19.9 % (11.5-14.5)
[2021-10-06 03:52] LABS: Calcium 9.7 mg/dL (8.6-10.3); Magnesium 2.2 mg/dL (1.6-2.6); Phosphorous 2.3 mg/dL (2.7-4.5); Potassium 3.8 mEq/L (3.5-5.1)
[2021-10-06] MEDS: Ondansetron 4 MG/2 ML VIAL IVP PRN (04:05)
[2021-10-06] MEDS: *HR* Heparin 5,000 UNIT/ML VIAL SQ SCH ×3 (05:49→22:10)
[2021-10-06] MEDS: Tiotropium 10 INH DOSE IH SCH (07:33)
[2021-10-06] MEDS: Budesonide/Formoterol 160/4.5 1 PUFF INH IH SCH ×2 (07:34→19:34)
[2021-10-06] MEDS ORDERED: 0.9 % Sodium Chloride 250 ML IVC PRN (08:40)
[2021-10-06] MEDS ORDERED: *HR* Heparin 10,000 UNIT/10 ML VIAL IV PRN (08:40)
[2021-10-06] MEDS: Cholecalciferol (D-3) 1,000 UNIT (25MCG) TABLET PO SCH ×2 (09:42→19:59)
[2021-10-06] MEDS: Sucralfate 1 GM TABLET PO SCH ×2 (09:42→18:02)
[2021-10-06] MEDS: Aspirin Enteric Coated 81 MG Tablet PO SCH (09:42)
[2021-10-06] MEDS: Finasteride 5 MG TABLET PO SCH (09:42)
[2021-10-06] MEDS: Fluticasone Propionate Nasal 50 MCG/SPRAY BOTTLE NS SCH (09:43)
[2021-10-06] MEDS: Acetaminophen 325 MG TABLET PO PRN (10:22)
[2021-10-06] MEDS: Metoprolol XL (24 HR) Succ 50 MG TAB.ER.24H PO SCH ×2 (12:56→19:58)
[2021-10-06] MEDS: Ipratropium/Albuterol Neb 3 ML IH PRN (16:51)
[2021-10-06] MEDS: *HR* HYDROcodone/Acet 5/325 mg TABLET PO PRN (19:58)
[2021-10-07] MEDS: Acetaminophen 325 MG TABLET PO PRN ×2 (03:01→19:49)
[2021-10-07] MEDS: *HR* HYDROcodone/Acet 5/325 mg TABLET PO PRN ×2 (03:01→19:48)
[2021-10-07 03:15] LABS: Calcium 9.9 mg/dL (8.6-10.3); Magnesium 2.1 mg/dL (1.6-2.6); Phosphorous 2.3 mg/dL (2.7-4.5); Potassium 3.8 mEq/L (3.5-5.1)
[2021-10-07] MEDS: *HR* Heparin 5,000 UNIT/ML VIAL SQ SCH ×3 (05:46→20:50)
[2021-10-07] MEDS: Budesonide/Formoterol 160/4.5 1 PUFF INH IH SCH ×2 (07:55→21:05)
[2021-10-07] MEDS: Tiotropium 10 INH DOSE IH SCH (07:55)
[2021-10-07] MEDS ORDERED: *HR* Heparin 10,000 UNIT/10 ML VIAL IV PRN (08:32)
[2021-10-07] MEDS ORDERED: 0.9 % Sodium Chloride 250 ML IVC PRN (08:32)
[2021-10-07] MEDS: Cholecalciferol (D-3) 1,000 UNIT (25MCG) TABLET PO SCH ×2 (09:14→19:49)
[2021-10-07] MEDS: Finasteride 5 MG TABLET PO SCH (09:15)
[2021-10-07] MEDS: Aspirin Enteric Coated 81 MG Tablet PO SCH (09:19)
[2021-10-07] MEDS: Fluticasone Propionate Nasal 50 MCG/SPRAY BOTTLE NS SCH (09:44)
[2021-10-07] MEDS: Sucralfate 1 GM TABLET PO SCH ×2 (09:44→17:34)
[2021-10-07] MEDS: Metoprolol XL (24 HR) Succ 50 MG TAB.ER.24H PO SCH ×2 (11:49→19:49)
[2021-10-08] MEDS: Acetaminophen 325 MG TABLET PO PRN ×2 (02:00→21:30)
[2021-10-08] MEDS: *HR* HYDROcodone/Acet 5/325 mg TABLET PO PRN (02:00)
[2021-10-08] MEDS ORDERED: *HR* LORazepam 2 MG/ML VIAL IVP ONE ×2 (04:17)
[2021-10-08] MEDS: *HR* Heparin 5,000 UNIT/ML VIAL SQ SCH ×3 (04:34→21:30)
[2021-10-08] MEDS: Cholecalciferol (D-3) 1,000 UNIT (25MCG) TABLET PO SCH ×2 (08:32→21:30)
[2021-10-08] MEDS: Metoprolol XL (24 HR) Succ 50 MG TAB.ER.24H PO SCH ×2 (08:32→21:30)
[2021-10-08] MEDS: Finasteride 5 MG TABLET PO SCH (08:32)
[2021-10-08] MEDS: Aspirin Enteric Coated 81 MG Tablet PO SCH (08:32)
[2021-10-08] MEDS: Sucralfate 1 GM TABLET PO SCH ×2 (08:32→16:04)
[2021-10-08] MEDS: Fluticasone Propionate Nasal 50 MCG/SPRAY BOTTLE NS SCH (08:33)
[2021-10-08] MEDS: Tiotropium 10 INH DOSE IH SCH (10:43)
[2021-10-08] MEDS: Budesonide/Formoterol 160/4.5 1 PUFF INH IH SCH ×2 (10:43→20:08)
[2021-10-08 10:56] LABS: Calcium 10.2 mg/dL (8.6-10.3); Magnesium 2.1 mg/dL (1.6-2.6); Phosphorous 2.9 mg/dL (2.7-4.5); Potassium 3.6 mEq/L (3.5-5.1)
[2021-10-08] MEDS: Melatonin 3 MG TABLET PO PRN (21:30)
[2021-10-09 02:34] LABS: Calcium 9.9 mg/dL (8.6-10.3); Magnesium 2.1 mg/dL (1.6-2.6); Phosphorous 2.6 mg/dL (2.7-4.5); Potassium 3.5 mEq/L (3.5-5.1)
[2021-10-09] MEDS: *HR* Heparin 5,000 UNIT/ML VIAL SQ SCH ×3 (06:29→20:49)
[2021-10-09] MEDS: Sucralfate 1 GM TABLET PO SCH ×2 (06:30→16:44)
[2021-10-09 07:15] LABS: Hepatitis B Surface Antibody < 3.10 mIU/mL
[2021-10-09 07:26] LABS: Hepatitis B Surface Antigen Nonreactive (Nonreactive)
[2021-10-09] MEDS: Budesonide/Formoterol 160/4.5 1 PUFF INH IH SCH ×2 (08:15→21:45)
[2021-10-09] MEDS: Tiotropium 10 INH DOSE IH SCH (08:15)
[2021-10-09] MEDS: Finasteride 5 MG TABLET PO SCH (08:41)
[2021-10-09] MEDS: Cholecalciferol (D-3) 1,000 UNIT (25MCG) TABLET PO SCH ×2 (08:42→20:48)
[2021-10-09] MEDS: Fluticasone Propionate Nasal 50 MCG/SPRAY BOTTLE NS SCH (08:42)
[2021-10-09] MEDS: Metoprolol XL (24 HR) Succ 50 MG TAB.ER.24H PO SCH ×2 (08:42→20:48)
[2021-10-09] MEDS: Aspirin Enteric Coated 81 MG Tablet PO SCH (08:42)
[2021-10-09] MEDS: Benzonatate 100 MG CAPSULE PO PRN (10:58)
[2021-10-09 19:06] LABS: Adenovirus Not Detected (Not Detect); Coronavirus 229E Not Detected (Not Detect); Coronavirus HKU1 Not Detected (Not Detect); Coronavirus NL63 Not Detected (Not Detect); Coronavirus OC43 Not Detected (Not Detect)
[2021-10-09 19:07] LABS: Bordetella Pertussis Not Detected (Not Detect); Chlamydophila pneumoniae Not Detected (Not Detect); Human Metapneumovirus Not Detected (Not Detect); Human Rhinovirus/Enterovirus DETECTED (Not Detect); Influenza A Subtype 2009 H1 Not Detected (Not Detect); Influenza B Not Detected (Not Detect); Mycoplasma pneumoniae Not Detected (Not Detect); Parainfluenza Virus 1 Not Detected (Not Detect); Parainfluenza Virus 2 Not Detected (Not Detect); Parainfluenza Virus 3 Not Detected (Not Detect); Parainfluenza Virus 4 Not Detected (Not Detect); Respiratory Syncytial Virus Not Detected (Not Detect); SARS-CoV-2 DETECTED (Not Detect)
[2021-10-10] MEDS: Melatonin 3 MG TABLET PO PRN (01:22)
[2021-10-10] MEDS: *HR* Heparin 5,000 UNIT/ML VIAL SQ SCH ×3 (05:57→20:38)
[2021-10-10 06:40] LABS: Magnesium 2.3 mg/dL (1.6-2.6); Phosphorous 3.1 mg/dL (2.7-4.5); Potassium 3.4 mEq/L (3.5-5.1)
[2021-10-10] MEDS: Aspirin Enteric Coated 81 MG Tablet PO SCH (07:54)
[2021-10-10] MEDS: Sucralfate 1 GM TABLET PO SCH ×2 (07:54→17:23)
[2021-10-10] MEDS: Metoprolol XL (24 HR) Succ 50 MG TAB.ER.24H PO SCH ×2 (07:55→20:38)
[2021-10-10] MEDS: Fluticasone Propionate Nasal 50 MCG/SPRAY BOTTLE NS SCH (07:55)
[2021-10-10] MEDS: Finasteride 5 MG TABLET PO SCH (07:55)
[2021-10-10] MEDS: Cholecalciferol (D-3) 1,000 UNIT (25MCG) TABLET PO SCH ×2 (07:55→20:38)
[2021-10-10] MEDS: Benzonatate 100 MG CAPSULE PO PRN (07:56)
[2021-10-10] MEDS: Ondansetron 4 MG/2 ML VIAL IVP PRN (08:04)
[2021-10-10] MEDS: Tiotropium 10 INH DOSE IH SCH (09:54)
[2021-10-10] MEDS: Budesonide/Formoterol 160/4.5 1 PUFF INH IH SCH ×2 (09:55→22:27)
[2021-10-11] MEDS: Sucralfate 1 GM TABLET PO SCH ×2 (06:26→18:36)
[2021-10-11] MEDS: *HR* Heparin 5,000 UNIT/ML VIAL SQ SCH ×3 (06:26→21:06)
[2021-10-11 06:47] LABS: Magnesium 2.3 mg/dL (1.6-2.6); Phosphorous 3.5 mg/dL (2.7-4.5); Potassium 4.1 mEq/L (3.5-5.1)
[2021-10-11] MEDS: Cholecalciferol (D-3) 1,000 UNIT (25MCG) TABLET PO SCH ×2 (08:06→21:06)
[2021-10-11] MEDS: Finasteride 5 MG TABLET PO SCH (08:06)
[2021-10-11] MEDS: Aspirin Enteric Coated 81 MG Tablet PO SCH (08:06)
[2021-10-11] MEDS: Metoprolol XL (24 HR) Succ 50 MG TAB.ER.24H PO SCH ×2 (08:07→21:06)
[2021-10-11] MEDS: Tiotropium 10 INH DOSE IH SCH (10:00)
[2021-10-11] MEDS: Budesonide/Formoterol 160/4.5 1 PUFF INH IH SCH ×2 (10:01→20:32)
[2021-10-11] MEDS: Fluticasone Propionate Nasal 50 MCG/SPRAY BOTTLE NS SCH (18:16)
[2021-10-12 03:17] LABS: Calcium 10.2 mg/dL (8.6-10.3); Magnesium 2.4 mg/dL (1.6-2.6); Phosphorous 2.9 mg/dL (2.7-4.5); Potassium 3.9 mEq/L (3.5-5.1)
[2021-10-12] MEDS: *HR* Heparin 5,000 UNIT/ML VIAL SQ SCH ×3 (06:05→20:50)
[2021-10-12] MEDS: Budesonide/Formoterol 160/4.5 1 PUFF INH IH SCH ×2 (07:38→22:16)
[2021-10-12] MEDS: Tiotropium 10 INH DOSE IH SCH (07:41)
[2021-10-12] MEDS: Metoprolol XL (24 HR) Succ 50 MG TAB.ER.24H PO SCH ×2 (08:31→20:49)
[2021-10-12] MEDS: Cholecalciferol (D-3) 1,000 UNIT (25MCG) TABLET PO SCH ×2 (08:32→20:50)
[2021-10-12] MEDS: Sucralfate 1 GM TABLET PO SCH ×2 (08:33→17:52)
[2021-10-12] MEDS: Aspirin Enteric Coated 81 MG Tablet PO SCH (08:33)
[2021-10-12] MEDS: Finasteride 5 MG TABLET PO SCH (08:33)
[2021-10-12] MEDS: Fluticasone Propionate Nasal 50 MCG/SPRAY BOTTLE NS SCH (12:45)
[2021-10-13 04:55] LABS: Hematocrit 35.7 % (37.5-50.1); Hemoglobin 11.3 g/dL (12.9-16.9)
[2021-10-13] MEDS: *HR* Heparin 5,000 UNIT/ML VIAL SQ SCH ×3 (05:04→20:56)
[2021-10-13 05:15] LABS: Calcium 10.2 mg/dL (8.6-10.3); Magnesium 2.5 mg/dL (1.6-2.6); Phosphorous 3.3 mg/dL (2.7-4.5); Potassium 3.8 mEq/L (3.5-5.1)
[2021-10-13] MEDS: Budesonide/Formoterol 160/4.5 1 PUFF INH IH SCH ×2 (07:54→22:25)
[2021-10-13] MEDS: Tiotropium 10 INH DOSE IH SCH (07:55)
[2021-10-13] MEDS: Sucralfate 1 GM TABLET PO SCH ×2 (09:38→15:49)
[2021-10-13] MEDS: Finasteride 5 MG TABLET PO SCH (09:38)
[2021-10-13] MEDS: Acetaminophen 325 MG TABLET PO PRN (09:38)
[2021-10-13] MEDS: Metoprolol XL (24 HR) Succ 50 MG TAB.ER.24H PO SCH ×2 (09:38→20:55)
[2021-10-13] MEDS: Aspirin Enteric Coated 81 MG Tablet PO SCH (09:40)
[2021-10-13] MEDS: Fluticasone Propionate Nasal 50 MCG/SPRAY BOTTLE NS SCH (09:40)
[2021-10-13] MEDS: Cholecalciferol (D-3) 1,000 UNIT (25MCG) TABLET PO SCH ×2 (09:40→20:55)
[2021-10-13] MEDS ORDERED: 0.9 % Sodium Chloride 1,000 ML IVC SCH (10:15)
[2021-10-14] MEDS: *HR* Heparin 5,000 UNIT/ML VIAL SQ SCH ×3 (05:31→21:41)
[2021-10-14 07:02] LABS: Calcium 9.8 mg/dL (8.6-10.3); Magnesium 2.5 mg/dL (1.6-2.6); Potassium 3.7 mEq/L (3.5-5.1)
[2021-10-14] MEDS: Tiotropium 10 INH DOSE IH SCH (08:20)
[2021-10-14] MEDS: Budesonide/Formoterol 160/4.5 1 PUFF INH IH SCH ×2 (08:20→22:11)
[2021-10-14] MEDS: Cholecalciferol (D-3) 1,000 UNIT (25MCG) TABLET PO SCH ×2 (09:40→21:37)
[2021-10-14] MEDS: Metoprolol XL (24 HR) Succ 50 MG TAB.ER.24H PO SCH ×2 (09:40→21:36)
[2021-10-14] MEDS: Aspirin Enteric Coated 81 MG Tablet PO SCH (09:41)
[2021-10-14] MEDS: Finasteride 5 MG TABLET PO SCH (09:41)
[2021-10-14] MEDS: Fluticasone Propionate Nasal 50 MCG/SPRAY BOTTLE NS SCH (09:43)
[2021-10-14] MEDS: Sucralfate 1 GM TABLET PO SCH ×2 (09:43→17:09)
[2021-10-14] MEDS: Benzonatate 100 MG CAPSULE PO PRN (21:37)
[2021-10-14] MEDS: Melatonin 3 MG TABLET PO PRN (21:38)
[2021-10-14] MEDS: Acetaminophen 325 MG TABLET PO PRN (21:38)
[2021-10-15] MEDS: *HR* Heparin 5,000 UNIT/ML VIAL SQ SCH ×3 (05:04→20:34)
[2021-10-15] MEDS: Acetaminophen 325 MG TABLET PO PRN ×3 (05:08→23:18)
[2021-10-15 08:21] LABS: Calcium 9.8 mg/dL (8.6-10.3); Magnesium 2.4 mg/dL (1.6-2.6); Phosphorous 2.6 mg/dL (2.7-4.5); Potassium 3.5 mEq/L (3.5-5.1)
[2021-10-15] MEDS: Metoprolol XL (24 HR) Succ 50 MG TAB.ER.24H PO SCH ×2 (08:25→20:33)
[2021-10-15] MEDS: Finasteride 5 MG TABLET PO SCH (08:25)
[2021-10-15] MEDS: Cholecalciferol (D-3) 1,000 UNIT (25MCG) TABLET PO SCH ×2 (08:25→20:34)
[2021-10-15] MEDS: Sucralfate 1 GM TABLET PO SCH ×2 (08:26→16:47)
[2021-10-15] MEDS: Aspirin Enteric Coated 81 MG Tablet PO SCH (08:26)
[2021-10-15] MEDS: Fluticasone Propionate Nasal 50 MCG/SPRAY BOTTLE NS SCH (08:26)
[2021-10-15] MEDS: Budesonide/Formoterol 160/4.5 1 PUFF INH IH SCH ×2 (10:45→20:35)
[2021-10-15] MEDS: Tiotropium 10 INH DOSE IH SCH (10:46)
[2021-10-16] MEDS: *HR* Heparin 5,000 UNIT/ML VIAL SQ SCH ×3 (05:00→20:51)
[2021-10-16] MEDS: Metoprolol XL (24 HR) Succ 50 MG TAB.ER.24H PO SCH ×2 (09:39→20:49)
[2021-10-16] MEDS: Fluticasone Propionate Nasal 50 MCG/SPRAY BOTTLE NS SCH (09:40)
[2021-10-16] MEDS: Cholecalciferol (D-3) 1,000 UNIT (25MCG) TABLET PO SCH ×2 (09:40→20:51)
[2021-10-16] MEDS: Finasteride 5 MG TABLET PO SCH (09:40)
[2021-10-16] MEDS: Aspirin Enteric Coated 81 MG Tablet PO SCH (09:40)
[2021-10-16] MEDS: Sucralfate 1 GM TABLET PO SCH ×2 (09:44→16:40)
[2021-10-16 10:30] LABS: Magnesium 2.3 mg/dL (1.6-2.6); Phosphorous 2.7 mg/dL (2.7-4.5); Potassium 3.8 mEq/L (3.5-5.1)
[2021-10-16] MEDS: Budesonide/Formoterol 160/4.5 1 PUFF INH IH SCH ×2 (10:45→22:14)
[2021-10-16] MEDS: Tiotropium 10 INH DOSE IH SCH (10:46)
[2021-10-17] MEDS: *HR* Heparin 5,000 UNIT/ML VIAL SQ SCH ×3 (04:41→22:35)
[2021-10-17 07:33] LABS: Magnesium 2.4 mg/dL (1.6-2.6); Phosphorous 2.5 mg/dL (2.7-4.5); Potassium 3.8 mEq/L (3.5-5.1)
[2021-10-17] MEDS: Tiotropium 10 INH DOSE IH SCH (09:22)
[2021-10-17] MEDS: Budesonide/Formoterol 160/4.5 1 PUFF INH IH SCH ×2 (09:22→21:06)
[2021-10-17] MEDS: Finasteride 5 MG TABLET PO SCH (10:46)
[2021-10-17] MEDS: Cholecalciferol (D-3) 1,000 UNIT (25MCG) TABLET PO SCH ×2 (10:46→22:35)
[2021-10-17] MEDS: Aspirin Enteric Coated 81 MG Tablet PO SCH (10:46)
[2021-10-17] MEDS: Sucralfate 1 GM TABLET PO SCH ×2 (10:47→17:43)
[2021-10-17] MEDS: Fluticasone Propionate Nasal 50 MCG/SPRAY BOTTLE NS SCH (10:47)
[2021-10-17] MEDS: Metoprolol XL (24 HR) Succ 50 MG TAB.ER.24H PO SCH ×2 (14:47→22:35)
[2021-10-18] MEDS: *HR* Heparin 5,000 UNIT/ML VIAL SQ SCH (05:43)
[2021-10-18] MEDS: Tiotropium 10 INH DOSE IH SCH (08:07)
[2021-10-18] MEDS: Budesonide/Formoterol 160/4.5 1 PUFF INH IH SCH (08:08)
[2021-10-18] MEDS: Metoprolol XL (24 HR) Succ 50 MG TAB.ER.24H PO SCH (08:30)
[2021-10-18] MEDS: Finasteride 5 MG TABLET PO SCH (08:30)
[2021-10-18] MEDS: Aspirin Enteric Coated 81 MG Tablet PO SCH (08:31)
[2021-10-18] MEDS: Fluticasone Propionate Nasal 50 MCG/SPRAY BOTTLE NS SCH (08:31)
[2021-10-18] MEDS: Cholecalciferol (D-3) 1,000 UNIT (25MCG) TABLET PO SCH (08:31)
[2021-10-18] MEDS: Sucralfate 1 GM TABLET PO SCH ×2 (08:31→16:12)
[2021-10-18 09:48] LABS: Calcium 10.2 mg/dL (8.6-10.3); Magnesium 2.4 mg/dL (1.6-2.6); Phosphorous 2.8 mg/dL (2.7-4.5); Potassium 3.9 mEq/L (3.5-5.1)
[2021-10-18 16:59] VITALS: BP 131/92; PULSE 80; TEMP 96.8; O2SAT 93
[2021-10-19] MEDS ORDERED: Torsemide 20 MG TABLET PO SCH (09:00)
== END 2021-10-18 17:58 | disposition home health service (06) | DRG 291 ==
LOC: 2ANU 16:17 → EMEROOARM 16:17 → SUATTDRO 22:20 → 2ANU 23:37 → SUATTDRO 10-03 12:26 → 3NENU 10-10 11:50
PROVIDERS: ADMIT Internal Medicine; ATTEND Internal Medicine